=== PATIENT | male | born 1960 | race Caucasian/White ===

== ENCOUNTER 2017-10-12 15:08 | Inpatient (IN) | payer OTHER ==
[~2017-10-12] VITALS: Ht 172.7 cm; Wt 67.6 kg
[~2017-10-12 15:08] MED LIST: DOXY100C2 PO; FLUO10CA48 PO; IBUP-103 PO
[2017-10-12] MEDS ORDERED: LEVAQUIN 750MG / 150ML D5W IV STA (16:05)
[2017-10-12] MEDS ORDERED: METHYLPREDNISOLONE 125 MG VIAL IV STA (16:05)
[2017-10-12] MEDS ORDERED: ACETAMINOPHEN 500 MG TAB PO STA (16:05)
[2017-10-12] MEDS ORDERED: SODIUM CHLORIDE 0.9% 1000ML 1,000 ML IV STA (16:05)
[2017-10-12] MEDS ORDERED: ALBUT/IPRATROP 3MG/0.5MG NEB 3 ML VIAL INH ONE (16:15)
--- NOTE | 2017-10-12 16:32 | DIAGNOSTIC IMAGING REPORT ---
CHEST ONE VIEW PORTABLE HISTORY: 57 years-old Male EVALUATE RESPIRATORY DISTRESS.DYSPNEA acute respiratory distress COMPARISON: None available TECHNIQUE: Portable AP view of the chest FINDINGS: Cardiac silhouette is within normal limits. Mild atherosclerosis of the aorta. No pneumothorax or large pleural effusion. There are patchy ill-defined alveolar opacities of the right midlung and left lung base with subsegmental dense alveolar opacities noted within the right lung base. No overt pulmonary edema. Bones of the chest appear grossly intact. IMPRESSION: Multifocal bilateral patchy alveolar opacities, most pronounced within the right lung base suggest pneumonia in the appropriate clinical setting. Follow-up imaging to document resolution is recommended. The above report was generated using voice recognition software. It may contain grammatical, syntax or spelling errors. Electronically signed by: Farzad Avitia M.D. 10/12/2017 4:30 PM Dictated Date/Time: 10/12/2017 4:28 PM
[2017-10-12 16:35] LABS: BASO % 0.1 %; BASO ABS # 0.01 K/uL (0-0.2); EOS % 0.3 %; EOS ABS # 0.03 K/uL (0-0.5); HEMATOCRIT 39.3 % (42-52); HEMOGLOBIN 13.8 g/dL (14.0-18.0); IG# 0.03 K/uL (0.00-0.02); LYMPH % 8.7 %; LYMPH ABS # 0.97 K/uL (1.2-3.4); MEAN CELL VOLUME 88.1 fL (80-100); MEAN CORPUSCULAR HEMOGLOBIN 30.9 pg (25-34); MEAN CORPUSCULAR HGB CONC 35.1 g/dl (32-36); MEAN PLATELET VOLUME 8.5 fL (7.4-10.4); MONO % 13.2 %; MONO ABS # 1.47 K/uL (0.11-0.59); NEUT % 77.4 %; NEUT ABS # 8.65 K/uL (1.4-6.5); PLATELET COUNT 277 K/uL (130-400); RED CELL DISTRIBUTION WIDTH CV 12.3 % (11.5-14.5); RED CELL DISTRIBUTION WIDTH SD 39.4 fL (36.4-46.3); WHITE BLOOD COUNT 11.16 K/uL (4.8-10.8)
--- NOTE | 2017-10-12 16:38 | EMERGENCY ROOM VISIT NOTE ---
ED Visit Note First contact with patient: 15:39 CHIEF COMPLAINT: Shortness of breath and cough HISTORY OF PRESENTING ILLNESS: This is a 57-year-old male presents to the emergency department with complaint of shortness of breath and cough for the past week. Patient went to see his primary care provider today and was noted to have oxygenation saturation of 81% on room air, he was therefore sent to the emergency department for further evaluation. The patient states he started with flulike symptoms about 1 week ago, including headaches, body aches, fevers and chills. He progressed to a cough and began having shortness of breath, which has been getting progressively worse over the past few days. He is a current everyday heavy smoker. He denies a history of COPD diagnosis, but states that he has "failed breathing tests in the past." He does not use any oxygen at home. He denies any vision changes, neck pain or stiffness, chest pain, dizziness or syncope, abdominal pain, back pain, nausea or vomiting, bloody or black stools, urinary symptoms, or rash. REVIEW OF SYSTEMS: A complete 10 point review of systems was reviewed with the patient with pertinent positives and negatives as per history of present illness. All else were negative. PAST MEDICAL HISTORY: Anxiety, chronic neck pain, Lyme disease. SOCIAL HISTORY: Lives at home with SO. Current everyday heavy smoker. Denies alcohol and illicit drug use. ALLERGIES: Reviewed in chart. PHYSICAL EXAM: CONSTITUTIONAL: Pleasant and cooperative. Moderately dehydrated. Patient appears ill and uncomfortable on exam. HEENT: Normocephalic, atraumatic. Pupils equal, round and reactive to light, EOMI. TMs normal. Pharynx normal. Dry mucous membranes. NECK: Supple, full active range of motion without discomfort. No significant cervical adenopathy. RESPIRATORY: Significantly diminished throughout with expiratory wheezes bilaterally, rhonchi in the right base. Mild accessory muscle use. No crackles or stridor heard. Equal expansion bilaterally. CARDIOVASCULAR: Tachycardic. Regular rhythm with no murmurs, rubs or gallops. Normal peripheral perfusion, +2 distal pulses all 4 extremities. No edema. GASTROINTESTINAL: Soft, nontender, nondistended. No palpable masses or HSM. Bowel sounds present in all quadrants. MUSCULOSKELETAL: Full range of motion of all joints without discomfort. INTEGUMENTARY: No rash or other significant dermatologic conditions noted. NEUROLOGIC: Alert and oriented X 4 with normal affect. Cranial nerves II-XII grossly intact. No focal neurologic deficits noted. Normal strength and sensation in all 4 extremities. Normal speech. ED COURSE AND MEDICAL DECISION MAKING: CC: Patient presenting with complaint of cough and shortness of breath DIFFERENTIAL DIAGNOSIS: Includes, but not limited to viral URI, bronchitis, pneumonia, COPD exacerbation, CHF exacerbation, ACS, influenza, PE, pulmonary edema, pneumothorax, sepsis/bacteremia, among others. INTERPRETATION OF LABS: Leukocytosis with left shift, mild anemia, mild hypokalemia, no other significant electrolyte abnormalities, normal renal function, normal liver enzymes. Negative troponin. Coagulation factors within normal limits. Influenza negative. UA negative. IMAGING: CHEST ONE VIEW PORTABLE HISTORY: 57 years-old Male EVALUATE RESPIRATORY DISTRESS.DYSPNEA acute respiratory distress COMPARISON: None available TECHNIQUE: Portable AP view of the chest FINDINGS: Cardiac silhouette is within normal limits. Mild atherosclerosis of the aorta. No pneumothorax or large pleural effusion. There are patchy ill-defined alveolar opacities of the right midlung and left lung base with subsegmental dense alveolar opacities noted within the right lung base. No overt pulmonary edema. Bones of the chest appear grossly intact. IMPRESSION: Multifocal bilateral patchy alveolar opacities, most pronounced within the right lung base suggest pneumonia in the appropriate clinical setting. Follow-up imaging to document resolution is recommended. EKG: Sinus tachycardia with a rate of 101 bpm no acute ischemic changes and no significant changes from previous EKG by my interpretation. MEDICATION RECONCILIATION: I attest that I have personally reviewed the patient 's current medication list. INITIAL VITAL SIGNS REVIEW: I reviewed the patient's vital signs and interpret them as follows: T: Febrile; BP: Normotensive; HR: Tachycardic; RR: Within normal limits; Pulse Ox: Hypoxic on room air. Blood pressure screening: The patient was found to have normal blood pressure on screening and does not require follow-up for repeat blood pressure check. SUMMARY: Patient was evaluated at bedside, history and physical exam performed. Patient is alert and oriented, noting mild respiratory distress with tachypnea and hypoxia, placed on 3 L nasal cannula. Patient is febrile, tachycardic, hypoxic, and mildly hypertensive on initial examination. Patient also appears to feel unwell. Lungs are significantly diminished with expiratory wheezes on auscultation. EKG reviewed at bedside, no acute ischemic changes. Orders were placed at bedside for labs, UA, blood cultures 2, lactic acid, IV fluids for hydration, hour-long DuoNeb, IV Solu-Medrol, IV Levaquin for suspected pulmonary source of infection, chest x-ray to evaluate for pneumonia. Patient discussed with Dr. Guillen, who agrees with my assessment and plan. Labs and imaging reviewed as above, noting mild leukocytosis with left shift. Influenza screen negative. Chest x-ray consistent with multifocal pneumonia. I spoke with Dr. Aquilino PA-C hospitalist, who agrees to evaluate patient for admission. Patient reassessed multiple times throughout ED stay, he is feeling somewhat better after hour-long neb treatments and being placed on oxygen, but continues to feel short of breath, and becomes hypoxic with removal of oxygen. Patient was updated on all results and plan for admission, patient verbalized understanding and was agreeable to this plan. The patient was stable at time of admission. Problem List Medical Problems: (1) COPD, severe Status: Chronic (2) Depression Status: Chronic Surgical Problems: (1) H/O inguinal hernia repair Status: Chronic (2) History of appendectomy Status: Chronic Current/Historical Medications Scheduled Fluoxetine (Prozac), 10 MG PO DAILY Multivitamin (Multivitamin), 1 TAB PO DAILY Scheduled PRN Lorazepam (Lorazepam), 0.5 MG PO DAILY PRN for Anxiety Meloxicam (Mobic), 15 MG PO DAILY PRN for Pain Allergies Coded Allergies: Sulfa Antibiotics (Verified Allergy, Unknown, RASH, 10/12/17) Vital Signs Date Time Temp Pulse Resp B/P (MAP) Pulse Ox O2 Delivery O2 Flow Rate FiO2 10/12/17 17:22 90 18 94 2.0 10/12/17 17:07 90 20 126/78 97 Nebulizer 10/12/17 16:24 98 10/12/17 16:04 92 Nasal Cannula 3.0 10/12/17 16:04 92 Nasal Cannula 3.0 10/12/17 16:04 38.9 102 20 97/72 90 Nasal Cannula 3.0 10/12/17 15:29 37.5 106 18 110/72 83 Room Air Laboratory Results 10/12/17 16:20 Red Blood Count 4.46, Mean Corpuscular Volume 88.1, Mean Corpuscular Hemoglobin 30.9, Mean Corpuscular Hemoglobin Concent 35.1, Mean Platelet Volume 8.5, Neutrophils (%) (Auto) 77.4, Lymphocytes (%) (Auto) 8.7, Monocytes (%) (Auto) 13.2, Eosinophils (%) (Auto) 0.3, Basophils (%) (Auto) 0.1, Neutrophils # (Auto ) 8.65, Lymphocytes # (Auto) 0.97, Monocytes # (Auto) 1.47, Eosinophils # (Auto ) 0.03, Basophils # (Auto) 0.01 10/12/17 16:20 Test 10/12/17 15:55 10/12/17 16:20 Influenza Type A Antigen Neg for Influ A (NEG) Influenza Type B Antigen Neg for Influ B (NEG) White Blood Count 11.16 K/uL (4.8-10.8) Red Blood Count 4.46 M/uL (4.7-6.1) Hemoglobin 13.8 g/dL (14.0-18.0) Hematocrit 39.3 % (42-52) Mean Corpuscular Volume 88.1 fL (80-100) Mean Corpuscular Hemoglobin 30.9 pg (25-34) Mean Corpuscular Hemoglobin Concent 35.1 g/dl (32-36) Platelet Count 277 K/uL (130-400) Mean Platelet Volume 8.5 fL (7.4-10.4) Neutrophils (%) (Auto) 77.4 % Lymphocytes (%) (Auto) 8.7 % Monocytes (%) (Auto) 13.2 % Eosinophils (%) (Auto) 0.3 % Basophils (%) (Auto) 0.1 % Neutrophils # (Auto) 8.65 K/uL (1.4-6.5) Lymphocytes # (Auto) 0.97 K/uL (1.2-3.4) Monocytes # (Auto) 1.47 K/uL (0.11-0.59) Eosinophils # (Auto) 0.03 K/uL (0-0.5) Basophils # (Auto) 0.01 K/uL (0-0.2) RDW Standard Deviation 39.4 fL (36.4-46.3) RDW Coefficient of Variation 12.3 % (11.5-14.5) Immature Granulocyte % (Auto) 0.3 % Immature Granulocyte # (Auto) 0.03 K/uL (0.00-0.02) Prothrombin Time 11.6 SECONDS (9.0-12.0) Prothromb Time International Ratio 1.1 (0.9-1.1) Activated Partial Thromboplast Time 31.7 SECONDS (21.0-31.0) Partial Thromboplastin Ratio 1.2 Anion Gap 8.0 mmol/L (3-11) Est Creatinine Clear Calc Drug Dose 133.6 ml/min Estimated GFR () 130.3 Estimated GFR (Non- 112.4 BUN/Creatinine Ratio 19.9 (10-20) Lactic Acid Level 0.9 mmol/L (0.4-2.0) Calcium Level 8.9 mg/dl (8.5-10.1) Magnesium Level 2.2 mg/dl (1.8-2.4) Total Bilirubin 0.6 mg/dl (0.2-1) Aspartate Amino Transf (AST/SGOT) 14 U/L (15-37) Alanine Aminotransferase (ALT/SGPT) 29 U/L (12-78) Alkaline Phosphatase 60 U/L (45-117) Troponin I < 0.015 ng/ml (0-0.045) Total Protein 7.5 gm/dl (6.4-8.2) Albumin 3.0 gm/dl (3.4-5.0) Globulin 4.5 gm/dl (2.5-4.0) Albumin/Globulin Ratio 0.7 (0.9-2) Medications Administered Medications (Trade) Dose Ordered Sig/Radha Route Start Time Stop Time Status Last Admin Dose Admin Acetaminophen (Tylenol Tab) 1,000 mg NOW STAT PO 10/12/17 16:05 10/12/17 16:09 DC 10/12/17 16:57 1,000 MG Albuterol/ Ipratropium (Duoneb) 12 ml ONE ONCE INH 10/12/17 16:15 10/12/17 16:16 DC 10/12/17 17:01 12 ML Levofloxacin (Levaquin / D5W) 750 mg NOW STAT IV 10/12/17 16:05 10/12/17 16:09 DC 10/12/17 16:58 750 MG Methylprednisolone Sodium Succinate (Solu-Medrol IV) 125 mg NOW STAT IV 10/12/17 16:05 10/12/17 16:09 DC 10/12/17 16:58 125 MG Sodium Chloride 1,000 ml @ 999 mls/hr Q1H1M STAT IV 10/12/17 16:05 10/12/17 17:05 DC 10/12/17 16:49 999 MLS/HR Departure Information Impression Primary Impression: Pneumonia Additional Impression: Hypoxia Dispostion Admitted as an inpatient Condition FAIR Referrals Princess Odonnell D.O. (PCP) Patient Instructions [facility] Problem Qualifiers Primary Impression: Pneumonia Pneumonia type: due to unspecified organism Laterality: bilateral Lung location: unspecified part of lung Qualified Codes: J18.9 - Pneumonia, unspecified organism
[2017-10-12 16:43] LABS: INR 1.1 (0.9-1.1); PTT PATIENT 31.7 SECONDS (21.0-31.0)
[2017-10-12 16:51] LABS: ALT/SGPT 29 U/L (12-78); AST/SGOT 14 U/L (15-37); BLOOD UREA NITROGEN 12 mg/dl (7-18); CALCIUM 8.9 mg/dl (8.5-10.1); CARBON DIOXIDE 31 mmol/L (21-32); CREATININE 0.59 mg/dl (0.60-1.40); GLUCOSE 116 mg/dl (70-99); POTASSIUM 3.2 mmol/L (3.5-5.1); SODIUM 135 mmol/L (136-145)
[2017-10-12 16:56] LABS: ALKALINE PHOSPHATASE 60 U/L (45-117); TOTAL PROTEIN 7.5 gm/dl (6.4-8.2)
[2017-10-12] MEDS ORDERED: ATV5X PO (17:19)
[2017-10-12] MEDS ORDERED: MULT-506 PO (17:19)
[2017-10-12 17:21] LABS: INFLUENZA B ANTIGEN Neg for Influ B (NEG)
[2017-10-12 17:22] VITALS: PULSE 90; O2SAT 94
[2017-10-12] MEDS ORDERED: ONDANSETRON INJ 2 MG/ML 2 ML VIAL IV PRN (17:45)
[2017-10-12] MEDS ORDERED: ACETAMINOPHEN 325 MG TAB PO PRN (17:45)
[2017-10-12] MEDS ORDERED: POTASSIUM CHLORIDE 10 MEQ TABCR PO STA (17:47)
[2017-10-12] MEDS ORDERED: MELO-84 PO (18:07)
[2017-10-12] MEDS ORDERED: LORAZEPAM 0.5 MG TAB PO PRN (18:15)
--- NOTE | 2017-10-12 19:54 | History and Physical ---
History & Physical Date & Time of Service: Oct 12, 2017 ~ 17:15 Chief Complaint: Shortness of Breath, Cough Referred by PCP Primary Care Physician: Princess Odonnell D.O. History of Present Illness 57 year old male who presents to the ED with shortness of breath and cough. Patient reports he started getting sick about one week ago. He has had worsening shortness of breath at rest as well as with exertion. He has a cough productive for green sputum. He has felt body aches and chills however did not take his temperature at home. He was seen by his PCP today where he was found to have oxygen saturation of 81% on room air. He was referred to the ED for further evaluation. Patient reports he has had a poor appetite but denies abdominal pain, nausea, vomiting, or diarrhea. No chest pain or palpitations. He denies lightheadedness, dizziness, diaphoresis, and syncopal events. No urinary symptoms. In the ED, patient was saturating 83% on room air which improved with oxygen 3L via NC. He was also febrile and tachycardic. BP is stable. Lactic acid is WNL. CXR shows multifocal pneumonia. He was given IVF, Tylenol, IV Levaquin, and IV solumedrol. Past Medical/Surgical History Medical Problems: (1) COPD, severe Status: Chronic (2) Depression Status: Chronic Surgical Problems: (1) H/O inguinal hernia repair Status: Chronic (2) History of appendectomy Status: Chronic Family History FH: CAD (coronary artery disease) FATHER (fatal AR at age 71) Social History Smoking Status: Current Every Day Smoker Alcohol Use: none Immunizations History of Tetanus Vaccine?: Yes Tetanus Immunization Date: May 09, 2009 History of Pneumococcal: Yes Pneumococcal Date: Feb 11, 2017 Multi-Drug Resistant Organisms History of MDRO: No Allergies Coded Allergies: Sulfa Antibiotics (Verified Allergy, Unknown, RASH, 10/12/17) Home Medications Scheduled Fluoxetine (Prozac), 10 MG PO DAILY Multivitamin (Multivitamin), 1 TAB PO DAILY Scheduled PRN Lorazepam (Lorazepam), 0.5 MG PO DAILY PRN for Anxiety Meloxicam (Mobic), 15 MG PO DAILY PRN for Pain Review of Systems ROS per HPI, all other systems reviewed and negative Physical Exam Vital Signs Date Time Temp Pulse Resp B/P (MAP) Pulse Ox O2 Delivery O2 Flow Rate FiO2 2/12/18 18:16 36.9 99 18 105/67 94 Nasal Cannula 3.0 10/12/17 17:22 90 18 94 2.0 10/12/17 17:07 90 20 126/78 97 Nebulizer 10/12/17 16:24 98 10/12/17 16:04 92 Nasal Cannula 3.0 10/12/17 16:04 92 Nasal Cannula 3.0 10/12/17 16:04 38.9 102 20 97/72 90 Nasal Cannula 3.0 10/12/17 15:29 37.5 106 18 110/72 83 Room Air General Appearance: WD/WN, no apparent distress (ill appearing) Head: normocephalic, atraumatic Eyes: normal inspection, EOMI, sclerae normal ENT: hearing grossly normal, + pertinent finding (mucous membranes moist) Neck: supple, no JVD, trachea midline Respiratory/Chest: no respiratory distress, + rhonchi (scattered throughout all lung chamberlain), + wheezing (expiratory) Cardiovascular: regular rate, rhythm, no edema, normal peripheral pulses Abdomen/GI: normal bowel sounds, non tender, soft, no organomegaly Extremities/Musculoskelatal: normal inspection, no calf tenderness, normal capillary refill Neurologic/Psych: no motor/sensory deficits, alert, normal mood/affect, oriented x 3 Skin: normal color, warm/dry Diagnostics Laboratory Results Results Past 24 Hours Test 10/12/17 15:55 10/12/17 16:20 Range/Units Influenza Type A Antigen Neg for Influ A NEG Influenza Type B Antigen Neg for Influ B NEG White Blood Count 11.16 4.8-10.8 K/uL Red Blood Count 4.46 4.7-6.1 M/uL Hemoglobin 13.8 14.0-18.0 g/dL Hematocrit 39.3 42-52 % Mean Corpuscular Volume 88.1 80-100 fL Mean Corpuscular Hemoglobin 30.9 25-34 pg Mean Corpuscular Hemoglobin Concent 35.1 32-36 g/dl Platelet Count 277 130-400 K/uL Mean Platelet Volume 8.5 7.4-10.4 fL Neutrophils (%) (Auto) 77.4 % Lymphocytes (%) (Auto) 8.7 % Monocytes (%) (Auto) 13.2 % Eosinophils (%) (Auto) 0.3 % Basophils (%) (Auto) 0.1 % Neutrophils # (Auto) 8.65 1.4-6.5 K/uL Lymphocytes # (Auto) 0.97 1.2-3.4 K/uL Monocytes # (Auto) 1.47 0.11-0.59 K/uL Eosinophils # (Auto) 0.03 0-0.5 K/uL Basophils # (Auto) 0.01 0-0.2 K/uL RDW Standard Deviation 39.4 36.4-46.3 fL RDW Coefficient of Variation 12.3 11.5-14.5 % Immature Granulocyte % (Auto) 0.3 % Immature Granulocyte # (Auto) 0.03 0.00-0.02 K/uL Prothrombin Time 11.6 9.0-12.0 SECONDS Prothromb Time International Ratio 1.1 0.9-1.1 Activated Partial Thromboplast Time 31.7 21.0-31.0 SECONDS Partial Thromboplastin Ratio 1.2 Sodium Level 135 136-145 mmol/L Potassium Level 3.2 3.5-5.1 mmol/L Chloride Level 96 98-107 mmol/L Carbon Dioxide Level 31 21-32 mmol/L Anion Gap 8.0 3-11 mmol/L Blood Urea Nitrogen 12 7-18 mg/dl Creatinine 0.59 0.60-1.40 mg/dl Est Creatinine Clear Calc Drug Dose 133.6 ml/min Estimated GFR () 130.3 Estimated GFR (Non- 112.4 BUN/Creatinine Ratio 19.9 10-20 Random Glucose 116 70-99 mg/dl Lactic Acid Level 0.9 0.4-2.0 mmol/L Calcium Level 8.9 8.5-10.1 mg/dl Magnesium Level 2.2 1.8-2.4 mg/dl Total Bilirubin 0.6 0.2-1 mg/dl Aspartate Amino Transf (AST/SGOT) 14 15-37 U/L Alanine Aminotransferase (ALT/SGPT) 29 12-78 U/L Alkaline Phosphatase 60 45-117 U/L Troponin I < 0.015 0-0.045 ng/ml Total Protein 7.5 6.4-8.2 gm/dl Albumin 3.0 3.4-5.0 gm/dl Globulin 4.5 2.5-4.0 gm/dl Albumin/Globulin Ratio 0.7 0.9-2 Microbiology Results 10/12/17 Blood Culture, Received Pending 10/12/17 Blood Culture, Received Pending Diagnostic Radiology CXR IMPRESSION: Multifocal bilateral patchy alveolar opacities, most pronounced within the right lung base suggest pneumonia in the appropriate clinical setting. Follow-up imaging to document resolution is recommended. Impression Assessment and Plan ACUTE HYPOXIC RESPIRATORY FAILURE COMMUNITY ACQUIRED PNEUMONIA COPD EXACERBATION POSSIBLE EARLY SEPSIS - admit to tele - patient presenting from PCPs office for evaluation of cough, shortness of breath, and hypoxia; in the ED, patient found to be 83% on room air which improved with oxygen 3L via NC and CXR shows multifocal pneumonia - on presentation: febrile, mild tachycardia; WBC 11K, lactic acid WNL, BP stable - rapid flu negative; will not check PCR given duration of patient's symptoms - s/p Levaquin in the ED, will continue with - s/p solumedrol 125mg IV in the ED, will continue with Prednisone 40mg PO x 5 days - blood and sputum cultures - IVF - flutter valve and nebs to help mobilize secretions - PFTs 02/2017 - severe COPD; patient continues to smoke DEPRESSION - continue fluoxetine TOBACCO ABUSE - patient counseled regarding smoking cessation - nicotine patch - consider outpatient screening CT DVT PROPHYLAXIS - SQ Lovenox DISPO - In my clinical judgment this beneficiary meets acute admission criteria, established by [facility], that includes being hospitalized through two midnights. ADDENDUM: This is a 57 year old male with a PMH of tobacco use disorder, smokes 2PPD. Presents with fevers/chills/weakness/cough for the past week. Thought it was the flu, but symptoms persisted. Presented to the ER and found to have multifocal pneumonia. He is comfortable currently; after receiving a breathing treatment. Plan: continue Levaquin for pneumonia add prednisone 40mg x5 days for an acute COPD exacerbation will need maintenance inhaler for COPD as outpatient (Advair, Dulera, Spiriva) should have low dose CT as outpatient to r/o malignancy VTE Prophylaxis VTE Risk Assessment Done? Y/N: Yes Risk Level: Moderate
[2017-10-12] MEDS: SODIUM CHLORIDE 0.9% 1000ML 1,000 ML IV SCH (19:55)
[2017-10-12] MEDS: LEVOFLOXACIN / D5W 750 MG in PREMIXED IN D5W 150 ML IV SCH (20:13)
[2017-10-12] MEDS: ENOXAPARIN 40 MG/0.4 ML SYR SC SCH (20:13)
[2017-10-12 20:24] VITALS: PULSE 71; O2SAT 92
[2017-10-12] MEDS: ALBUT/IPRATROP 3MG/0.5MG NEB 3 ML VIAL INH SCH (20:24)
[2017-10-12 20:39] VITALS: BP 100/64; PULSE 97; TEMP 37; Ht 172.7 cm; Wt 67.6 kg
[2017-10-12 23:44] VITALS: BP 98/65; PULSE 86; TEMP 36.7; O2SAT 92
[2017-10-13] VITALS (12 sets, daily range): BP systolic 109–138; BP diastolic 71–91; PULSE 79–101; TEMP 36.6–36.7; O2SAT 90–96
[2017-10-13] MEDS: ALBUT/IPRATROP 3MG/0.5MG NEB 3 ML VIAL INH SCH ×4 (01:46→19:12)
[2017-10-13] MEDS: SODIUM CHLORIDE 0.9% 1000ML 1,000 ML IV SCH (05:53)
[2017-10-13 07:47] LABS: HEMATOCRIT 34.1 % (42-52); HEMOGLOBIN 11.6 g/dL (14.0-18.0); MEAN CELL VOLUME 89.5 fL (80-100); MEAN CORPUSCULAR HEMOGLOBIN 30.4 pg (25-34); MEAN PLATELET VOLUME 8.5 fL (7.4-10.4); PLATELET COUNT 245 K/uL (130-400); RED CELL DISTRIBUTION WIDTH CV 12.4 % (11.5-14.5); RED CELL DISTRIBUTION WIDTH SD 39.8 fL (36.4-46.3)
[2017-10-13 08:13] LABS: CALCIUM 8.6 mg/dl (8.5-10.1); CREATININE 0.48 mg/dl (0.60-1.40); POTASSIUM 3.5 mmol/L (3.5-5.1)
[2017-10-13] MEDS: FLUOXETINE HCL 10 MG CAP PO SCH (10:37)
[2017-10-13] MEDS: MULTIVITAMIN TAB PO SCH (10:38)
[2017-10-13] MEDS: NICOTINE 21 MG/24 HR TDSY TD SCH (10:39)
[2017-10-13] MEDS ORDERED: NURSING VERBAL MED ORDER ONE (16:15)
--- NOTE | 2017-10-13 16:15 | Progress Note ---
Internal Med Progress Note Date of Service: Oct 13, 2017. Provider Documentation: SUBJECTIVE: The patient was seen and examined Admitted with Pneumonia and exacerbation of COPD Feels a lot better Continues to smoke OBJECTIVE: Vital Signs-as noted below Exam: General-Minimal distress at rst Eyes-Normal ENT-normal Neck-supple Lungs-Decreased breath sound bilaterally Bibasilar crackles Heart-Regular Abdomen-Benign Extremities-No edema Neuro-AAOx3 Lab data as noted below. ASSESSMENT & PLAN: ACUTE HYPOXIC RESPIRATORY FAILURE COMMUNITY ACQUIRED PNEUMONIA COPD EXACERBATION Possible Early Sepsis - patient presenting from PCPs office for evaluation of cough, shortness of breath, and hypoxia; in the ED, patient found to be 83% on room air which improved with oxygen 3L via NC and CXR shows multifocal pneumonia - rapid flu negative; - s/p Levaquin in the ED, will continue with - s/p solumedrol 125mg IV in the ED, will continue with Prednisone 40mg PO x 5 days - blood and sputum cultures-pending - IVF - flutter valve and nebs to help mobilize secretions - PFTs 02/2017 - severe COPD; patient continues to smoke -Clinically better -advised to quit smoking,patient agreeable DEPRESSION - continue fluoxetine TOBACCO ABUSE - patient counseled regarding smoking cessation - nicotine patch DVT PROPHYLAXIS - SQ Lovenox DISPO Discharge in a day or two Vital Signs: Date Time Temp Pulse Resp B/P (MAP) Pulse Ox O2 Delivery O2 Flow Rate FiO2 10/13/17 15:13 36.6 84 20 116/78 (91) 94 Nasal Cannula 1.0 10/13/17 12:00 93 Nasal Cannula 2.0 10/13/17 11:45 92 Nasal Cannula 2.0 10/13/17 11:31 36.6 79 16 112/74 (87) 92 Nasal Cannula 2.0 10/13/17 09:14 90 Nasal Cannula 2.0 10/13/17 08:00 90 Nasal Cannula 2.0 10/13/17 07:41 36.7 82 16 110/72 (85) 90 Room Air 2.0 10/13/17 07:33 81 18 94 Nasal Cannula 1.0 10/13/17 04:00 Nasal Cannula 4.0 10/13/17 03:59 36.7 83 18 109/71 (84) 96 Nasal Cannula 4.0 10/13/17 00:00 Nasal Cannula 4.0 10/12/17 23:44 36.7 86 20 98/65 (76) 92 3.0 10/12/17 20:39 37.0 97 18 100/64 Nasal Cannula 4.0 10/12/17 20:24 71 18 92 Nasal Cannula 4.0 10/12/17 18:16 36.9 99 18 105/67 94 Nasal Cannula 3.0 10/12/17 17:22 90 18 94 2.0 10/12/17 17:07 90 20 126/78 97 Nebulizer 10/12/17 16:24 98 Lab Results: Results Past 24 Hours Test 10/12/17 16:20 10/12/17 22:25 10/13/17 07:26 Range/Units White Blood Count 11.16 7.90 4.8-10.8 K/uL Red Blood Count 4.46 3.81 4.7-6.1 M/uL Hemoglobin 13.8 11.6 14.0-18.0 g/dL Hematocrit 39.3 34.1 42-52 % Mean Corpuscular Volume 88.1 89.5 80-100 fL Mean Corpuscular Hemoglobin 30.9 30.4 25-34 pg Mean Corpuscular Hemoglobin Concent 35.1 34.0 32-36 g/dl Platelet Count 277 245 130-400 K/uL Mean Platelet Volume 8.5 8.5 7.4-10.4 fL Neutrophils (%) (Auto) 77.4 % Lymphocytes (%) (Auto) 8.7 % Monocytes (%) (Auto) 13.2 % Eosinophils (%) (Auto) 0.3 % Basophils (%) (Auto) 0.1 % Neutrophils # (Auto) 8.65 1.4-6.5 K/uL Lymphocytes # (Auto) 0.97 1.2-3.4 K/uL Monocytes # (Auto) 1.47 0.11-0.59 K/uL Eosinophils # (Auto) 0.03 0-0.5 K/uL Basophils # (Auto) 0.01 0-0.2 K/uL RDW Standard Deviation 39.4 39.8 36.4-46.3 fL RDW Coefficient of Variation 12.3 12.4 11.5-14.5 % Immature Granulocyte % (Auto) 0.3 % Immature Granulocyte # (Auto) 0.03 0.00-0.02 K/uL Prothrombin Time 11.6 9.0-12.0 SECONDS Prothromb Time International Ratio 1.1 0.9-1.1 Activated Partial Thromboplast Time 31.7 21.0-31.0 SECONDS Partial Thromboplastin Ratio 1.2 Sodium Level 135 138 136-145 mmol/L Potassium Level 3.2 3.5 3.5-5.1 mmol/L Chloride Level 96 100 98-107 mmol/L Carbon Dioxide Level 31 31 21-32 mmol/L Anion Gap 8.0 7.0 3-11 mmol/L Blood Urea Nitrogen 12 8 7-18 mg/dl Creatinine 0.59 0.48 0.60-1.40 mg/dl Est Creatinine Clear Calc Drug Dose 133.6 164.2 ml/min Estimated GFR () 130.3 141.8 Estimated GFR (Non- 112.4 122.3 BUN/Creatinine Ratio 19.9 16.8 10-20 Random Glucose 116 102 70-99 mg/dl Lactic Acid Level 0.9 0.4-2.0 mmol/L Calcium Level 8.9 8.6 8.5-10.1 mg/dl Magnesium Level 2.2 1.8-2.4 mg/dl Total Bilirubin 0.6 0.2-1 mg/dl Aspartate Amino Transf (AST/SGOT) 14 15-37 U/L Alanine Aminotransferase (ALT/SGPT) 29 12-78 U/L Alkaline Phosphatase 60 45-117 U/L Troponin I < 0.015 0-0.045 ng/ml Total Protein 7.5 6.4-8.2 gm/dl Albumin 3.0 3.4-5.0 gm/dl Globulin 4.5 2.5-4.0 gm/dl Albumin/Globulin Ratio 0.7 0.9-2 Urine Color YELLOW Urine Appearance CLEAR CLEAR Urine pH 6.5 4.5-7.5 Urine Specific [place] 1.008 1.000-1.030 Urine Protein NEG NEG Urine Glucose (UA) NEG NEG Urine Ketones NEG NEG Urine Occult Blood NEG NEG Urine Nitrite NEG NEG Urine Bilirubin NEG NEG Urine Urobilinogen NEG NEG Urine Leukocyte Esterase NEG NEG Hepatitis C Antibody Screen NEG NEG Microbiology Results 10/12/17 Blood Culture, Received Pending 10/12/17 Blood Culture, Received Pending 10/12/17 Gram Stain - Final, Resulted 10/12/17 Sputum Culture - Preliminary, Resulted HEAVY NORMAL PUMA Present, Final Rep...
[2017-10-13] MEDS: LEVOFLOXACIN / D5W 750 MG in PREMIXED IN D5W 150 ML IV SCH (20:21)
[2017-10-13] MEDS: ENOXAPARIN 40 MG/0.4 ML SYR SC SCH (20:42)
[2017-10-14] VITALS (10 sets, daily range): BP systolic 104–133; BP diastolic 71–87; PULSE 75–86; TEMP 36.4–36.9; O2SAT 90–95
[2017-10-14] MEDS: ALBUT/IPRATROP 3MG/0.5MG NEB 3 ML VIAL INH SCH ×3 (01:50→15:00)
[2017-10-14] MEDS: FLUOXETINE HCL 10 MG CAP PO SCH (08:33)
[2017-10-14] MEDS: NICOTINE 21 MG/24 HR TDSY TD SCH (08:33)
[2017-10-14] MEDS: MULTIVITAMIN TAB PO SCH (08:33)
--- NOTE | 2017-10-14 15:56 | Progress Note ---
Internal Med Progress Note Date of Service: Oct 14, 2017. Provider Documentation: SUBJECTIVE: The patient was seen and examined Admitted with Pneumonia and exacerbation of COPD Continues to smoke Much better today Advised ambulation OBJECTIVE: Vital Signs-as noted below Exam: General-Minimal distress at rest Eyes-Normal ENT-normal Neck-supple Lungs-Decreased breath sound bilaterally Bibasilar crackles Heart-Regular Abdomen-Benign Extremities-No edema Neuro-AAOx3 Lab data as noted below. ASSESSMENT & PLAN: ACUTE HYPOXIC RESPIRATORY FAILURE COMMUNITY ACQUIRED PNEUMONIA COPD EXACERBATION Possible Early Sepsis - patient presenting from PCPs office for evaluation of cough, shortness of breath, and hypoxia; in the ED, patient found to be 83% on room air which improved with oxygen 3L via NC and CXR shows multifocal pneumonia - rapid flu negative; - s/p Levaquin in the ED, will continue with - s/p solumedrol 125mg IV in the ED, will continue with Prednisone 40mg with tapered dose - blood and sputum cultures-pending - IVF-will discontinue IVF - flutter valve and nebs to help mobilize secretions - PFTs 02/2017 - severe COPD; patient continues to smoke -Clinically much better -advised to quit smoking,patient agreeable -Increase ambulation DEPRESSION - continue fluoxetine TOBACCO ABUSE - patient counseled regarding smoking cessation - nicotine patch for now DVT PROPHYLAXIS - SQ Lovenox DISPO Discharge in a day or two Vital Signs: Date Time Temp Pulse Resp B/P (MAP) Pulse Ox O2 Delivery O2 Flow Rate FiO2 10/15/17 08:00 Room Air 10/15/17 07:23 36.8 65 18 119/79 (92) 90 Nasal Cannula 2.0 10/15/17 04:00 Nasal Cannula 2.0 10/15/17 03:41 36.5 73 18 121/79 (93) 90 Nasal Cannula 2.0 10/15/17 00:14 36.6 79 18 117/72 (87) 93 Nasal Cannula 2.0 10/15/17 00:00 Nasal Cannula 2.0 10/14/17 20:00 Room Air 10/14/17 19:26 36.4 86 18 104/72 (83) 92 Nasal Cannula 2.0 10/14/17 16:00 Room Air 10/14/17 15:08 86 18 95 Room Air 10/14/17 12:00 91 Room Air 10/14/17 10:57 36.5 77 18 123/76 (92) 90 Room Air Lab Results: Results Past 24 Hours Test 10/15/17 05:30 Range/Units White Blood Count 8.81 4.8-10.8 K/uL Red Blood Count 4.15 4.7-6.1 M/uL Hemoglobin 12.7 14.0-18.0 g/dL Hematocrit 36.3 42-52 % Mean Corpuscular Volume 87.5 80-100 fL Mean Corpuscular Hemoglobin 30.6 25-34 pg Mean Corpuscular Hemoglobin Concent 35.0 32-36 g/dl RDW Standard Deviation 39.9 36.4-46.3 fL RDW Coefficient of Variation 12.5 11.5-14.5 % Platelet Count 335 130-400 K/uL Mean Platelet Volume 8.3 7.4-10.4 fL Sodium Level 140 136-145 mmol/L Potassium Level 3.1 3.5-5.1 mmol/L Chloride Level 103 98-107 mmol/L Carbon Dioxide Level 30 21-32 mmol/L Anion Gap 7.0 3-11 mmol/L Blood Urea Nitrogen 11 7-18 mg/dl Creatinine 0.60 0.60-1.40 mg/dl Est Creatinine Clear Calc Drug Dose 131.4 ml/min Estimated GFR () 129.4 Estimated GFR (Non- 111.6 BUN/Creatinine Ratio 18.8 10-20 Random Glucose 98 70-99 mg/dl Calcium Level 8.8 8.5-10.1 mg/dl Phosphorus Level 4.3 2.5-4.9 mg/dl Magnesium Level 2.2 1.8-2.4 mg/dl
[2017-10-14] MEDS ORDERED: LEVOFLOXACIN 750 MG TAB PO SCH (18:00)
[2017-10-14] MEDS: ENOXAPARIN 40 MG/0.4 ML SYR SC SCH (21:51)
[2017-10-14] MEDS: IPRATROPIUM BROMIDE/ALBUTEROL respimat INH INH SCH (21:53)
[2017-10-15 00:14] VITALS: BP 117/72; PULSE 79; TEMP 36.6; O2SAT 93
[2017-10-15] MEDS: IPRATROPIUM BROMIDE/ALBUTEROL respimat INH INH SCH ×3 (02:38→11:36)
[2017-10-15 03:41] VITALS: BP 121/79; PULSE 73; TEMP 36.5; O2SAT 90
[2017-10-15 05:53] LABS: HEMATOCRIT 36.3 % (42-52); HEMOGLOBIN 12.7 g/dL (14.0-18.0); MEAN CELL VOLUME 87.5 fL (80-100); MEAN CORPUSCULAR HEMOGLOBIN 30.6 pg (25-34); MEAN PLATELET VOLUME 8.3 fL (7.4-10.4); PLATELET COUNT 335 K/uL (130-400); RED CELL DISTRIBUTION WIDTH CV 12.5 % (11.5-14.5); RED CELL DISTRIBUTION WIDTH SD 39.9 fL (36.4-46.3); WHITE BLOOD COUNT 8.81 K/uL (4.8-10.8)
[2017-10-15 06:21] LABS: CALCIUM 8.8 mg/dl (8.5-10.1); CREATININE 0.6 mg/dl (0.60-1.40); POTASSIUM 3.1 mmol/L (3.5-5.1)
[2017-10-15 06:22] LABS: PHOSPHORUS 4.3 mg/dl (2.5-4.9)
[2017-10-15 07:23] VITALS: BP 119/79; PULSE 65; TEMP 36.8; O2SAT 90
[2017-10-15] MEDS: FLUOXETINE HCL 10 MG CAP PO SCH (07:26)
[2017-10-15] MEDS: MULTIVITAMIN TAB PO SCH (07:26)
[2017-10-15] MEDS: NICOTINE 21 MG/24 HR TDSY TD SCH (07:27)
[2017-10-15] MEDS ORDERED: POTASSIUM CHLORIDE 20 MEQ TABCR PO ONE (07:45)
--- NOTE | 2017-10-15 08:25 | DIAGNOSTIC IMAGING REPORT ---
CHEST 2 VIEWS ROUTINE CLINICAL HISTORY: 57 years-old Male presenting with pneumonia. TECHNIQUE: PA and lateral views of the chest were obtained. COMPARISON: 10/12/2017. FINDINGS: Atherosclerosis of the aortic arch. Cardiac silhouette normal in size. Interval decrease in patchy hazy opacities at the right lung base. Minimal patchy opacities in the right midlung. Lungs mildly hyperinflated. Trace bilateral pleural effusions suspected. Degenerative changes of the thoracic spine. Numerous overlying external leads degrade evaluation of the upper abdomen. IMPRESSION: 1. Slight interval decrease in right basilar consolidation consistent with evolving pneumonia. 2. Hyperinflation could suggest underlying emphysema. 3. Trace bilateral pleural effusions. Electronically signed by: Gurinder Reyes M.D. 10/15/2017 8:24 AM Dictated Date/Time: 10/15/2017 8:22 AM
[2017-10-15 09:49] VITALS: O2SAT 88
[2017-10-15] MEDS ORDERED: POTASSIUM CHLORIDE 10 MEQ TABCR PO ONE (10:00)
--- NOTE | 2017-10-15 10:13 | Progress Note ---
Internal Med Progress Note Date of Service: Oct 15, 2017. Provider Documentation: SUBJECTIVE: The patient was seen and examined Admitted with Pneumonia and exacerbation of COPD Continues to smoke Much better today Ambulating well -ready to be discharged today OBJECTIVE: Vital Signs-as noted below Exam: General-Minimal distress at rest Eyes-Normal ENT-normal Neck-supple Lungs-Decreased breath sound bilaterally Bibasilar crackles with minimal wheezing bilaterally Heart-Regular Abdomen-Benign Extremities-No edema Neuro-AAOx3 Lab data as noted below. ASSESSMENT & PLAN: ACUTE HYPOXIC RESPIRATORY FAILURE COMMUNITY ACQUIRED PNEUMONIA COPD EXACERBATION Possible Early Sepsis - patient presenting from PCPs office for evaluation of cough, shortness of breath, and hypoxia; in the ED, patient found to be 83% on room air which improved with oxygen 3L via NC and CXR shows multifocal pneumonia - rapid flu negative; - s/p Levaquin in the ED, will continue with - s/p solumedrol 125mg IV in the ED, will continue with Prednisone 40mg with tapered dose - blood and sputum cultures-pending - IVF-will discontinue IVF - flutter valve and nebs to help mobilize secretions - PFTs 02/2017 - severe COPD; patient continues to smoke -advised to quit smoking,patient agreeable -CXR-no significant increase in Pneumonia,minimal bilateral effusion -Clinically a lot better today -Ambulating well -ready to be discharged today -2 steps before discharge DEPRESSION - continue fluoxetine TOBACCO ABUSE - patient counseled regarding smoking cessation - nicotine patch for now DVT PROPHYLAXIS - SQ Lovenox DISPO Discharge today Vital Signs: Date Time Temp Pulse Resp B/P (MAP) Pulse Ox O2 Delivery O2 Flow Rate FiO2 10/15/17 09:07 Nasal Cannula 2.0 10/15/17 08:00 Room Air 10/15/17 07:23 36.8 65 18 119/79 (92) 90 Nasal Cannula 2.0 10/15/17 04:00 Nasal Cannula 2.0 10/15/17 03:41 36.5 73 18 121/79 (93) 90 Nasal Cannula 2.0 10/15/17 00:14 36.6 79 18 117/72 (87) 93 Nasal Cannula 2.0 10/15/17 00:00 Nasal Cannula 2.0 10/14/17 20:00 Room Air 10/14/17 19:26 36.4 86 18 104/72 (83) 92 Nasal Cannula 2.0 10/14/17 16:00 Room Air 10/14/17 15:08 86 18 95 Room Air 10/14/17 12:00 91 Room Air 10/14/17 10:57 36.5 77 18 123/76 (92) 90 Room Air Lab Results: Results Past 24 Hours Test 10/15/17 05:30 Range/Units White Blood Count 8.81 4.8-10.8 K/uL Red Blood Count 4.15 4.7-6.1 M/uL Hemoglobin 12.7 14.0-18.0 g/dL Hematocrit 36.3 42-52 % Mean Corpuscular Volume 87.5 80-100 fL Mean Corpuscular Hemoglobin 30.6 25-34 pg Mean Corpuscular Hemoglobin Concent 35.0 32-36 g/dl RDW Standard Deviation 39.9 36.4-46.3 fL RDW Coefficient of Variation 12.5 11.5-14.5 % Platelet Count 335 130-400 K/uL Mean Platelet Volume 8.3 7.4-10.4 fL Sodium Level 140 136-145 mmol/L Potassium Level 3.1 3.5-5.1 mmol/L Chloride Level 103 98-107 mmol/L Carbon Dioxide Level 30 21-32 mmol/L Anion Gap 7.0 3-11 mmol/L Blood Urea Nitrogen 11 7-18 mg/dl Creatinine 0.60 0.60-1.40 mg/dl Est Creatinine Clear Calc Drug Dose 131.4 ml/min Estimated GFR () 129.4 Estimated GFR (Non- 111.6 BUN/Creatinine Ratio 18.8 10-20 Random Glucose 98 70-99 mg/dl Calcium Level 8.8 8.5-10.1 mg/dl Phosphorus Level 4.3 2.5-4.9 mg/dl Magnesium Level 2.2 1.8-2.4 mg/dl
[2017-10-15] MEDS ORDERED: NURSING VERBAL MED ORDER ONE (10:15)
[2017-10-15] MEDS ORDERED: LVQ750 PO (11:14)
[2017-10-15] MEDS ORDERED: ALBU1.257 NEB (11:14)
[2017-10-15] MEDS ORDERED: LCTX PO (11:14)
[2017-10-15] MEDS ORDERED: NICO21DI4 TD (11:14)
[2017-10-15] MEDS ORDERED: PRED10TA PO (11:14)
[2017-10-15] MEDS ORDERED: IPRA1AER2 INH (11:14)
--- NOTE | 2017-10-15 11:19 | Discharge Instructions ---
Discharge Instructions Date of Service Oct 15, 2017. Admission Reason for Admission: Pneumonia Discharge Discharge Diagnosis / Problem: COPD exacerbation,Pneumonia Discharge Goals Goal(s): Prevent Disease Progression Activity Recommendations Activity Limitations: resume your previous activity . Instructions / Follow-Up Instructions / Follow-Up DR Odonnell on 10/19/17 at 10:45 AM.Pulmonary will call with appointment-will need Pulmonary Rehab Current Hospital Diet Patient's current hospital diet: Regular Diet, Low Fiber Diet Discharge Diet Recommended Diet: Regular Diet Pending Studies Studies pending at discharge: no Medical Emergencies . Who to Call and When: Medical Emergencies: If at any time you feel your situation is an emergency, please call 911 immediately. . Non-Emergent Contact Non-Emergency issues call your: Primary Care Provider . Past History Medical & Surgical History: (1) Hypoxia (2) Pneumonia (3) Depression (4) COPD, severe (5) History of appendectomy (6) H/O inguinal hernia repair . "Provider Documentation" section prepared by Helen Marroquin. . VTE Core Measure Inpt VTE Proph given/why not?: Enoxaparin (Lovenox)SQ
[2017-10-15 11:30] VITALS: BP 136/78; PULSE 67; TEMP 36.7; O2SAT 90
[2017-10-15 13:41] VITALS: BP 136/78; PULSE 67; TEMP 36.7; O2SAT 90
[2017-10-15] MEDS ORDERED: SODIUM CHLORIDE 0.65% NA SOLN 45 ML (OCEAN) ONE (13:57)
--- NOTE | 2017-10-16 12:43 | Discharge Summary ---
Discharge Summary Date of Service Oct 16, 2017. Discharge Summary Admission Date: Oct 12, 2017 at 17:36 Discharge Date: Oct 15, 2017 Discharge Disposition: Home Principal Diagnosis: COPD exacerbation,Pneumonia Secondary Diagnoses/Problems: Please see H&P and Hospital Progress note Medication Reconciliation New Medications: Albuterol Sulfate (Albuterol Sulfate) 1.25 Mg/3 Ml Neb 1 VIAL NEB Q6 PRN for Wheezing for 15 Days, #150 ML Lactobacillus Acidophilus (Lactinex) Tab 2 TAB PO BID, #30 TAB Prednisone Tab (Prednisone) 10 Mg Tab 10 MG PO UD for 20 Days, #50 TAB 4 PO daily for 5days,3 podaily for 5 days,2 podaily for 5 days and then 1 podaily for 5 days Ipratropium-Albuterol (Combivent Respimat) 1 Aer Aer 1 PUFFS INH Q6 PRN for Wheezing for 30 Days, #1 INHALER Levofloxacin (Levofloxacin) 750 Mg Tab 750 MG PO DAILY@1800 for 4 Days, #4 TAB Nicotine (Nicoderm Cq) 21 Mg/24 Hr Dis 1 PATCH TD QAM for 30 Days, #30 Continued Medications: Fluoxetine (Prozac) 10 Mg Cap 10 MG PO DAILY, CAP Lorazepam (Lorazepam) 0.5 Mg Tab 0.5 MG PO DAILY PRN for Anxiety Multivitamin (Multivitamin) Tab 1 TAB PO DAILY, TAB Discontinued Medications: Meloxicam (Mobic) 15 Mg Tab 15 MG PO DAILY PRN for Pain for 30 Days, #30 TAB 2 Refills Admission Information HPI (per Admitting provider): 57 year old male who presents to the ED with shortness of breath and cough. Patient reports he started getting sick about one week ago. He has had worsening shortness of breath at rest as well as with exertion. He has a cough productive for green sputum. He has felt body aches and chills however did not take his temperature at home. He was seen by his PCP today where he was found to have oxygen saturation of 81% on room air. He was referred to the ED for further evaluation. Patient reports he has had a poor appetite but denies abdominal pain, nausea, vomiting, or diarrhea. No chest pain or palpitations. He denies lightheadedness, dizziness, diaphoresis, and syncopal events. No urinary symptoms. In the ED, patient was saturating 83% on room air which improved with oxygen 3L via NC. He was also febrile and tachycardic. BP is stable. Lactic acid is WNL. CXR shows multifocal pneumonia. He was given IVF, Tylenol, IV Levaquin, and IV solumedrol. Past Medical/Surgical History Medical Problems: (1) COPD, severe Status: Chronic (2) Depression Status: Chronic Surgical Problems: (1) H/O inguinal hernia repair Status: Chronic (2) History of appendectomy Status: Chronic Family History FH: CAD (coronary artery disease) FATHER (fatal [place] at age 71) Social History Smoking Status: Current Every Day Smoker Alcohol Use: none Immunizations History of Tetanus Vaccine?: Yes Tetanus Immunization Date: May 09, 2009 History of Pneumococcal: Yes Pneumococcal Date: Feb 11, 2017 Multi-Drug Resistant Organisms History of MDRO: No Allergies Coded Allergies: Sulfa Antibiotics (Verified Allergy, Unknown, RASH, 10/12/17) Home Medications Scheduled Fluoxetine (Prozac), 10 MG PO DAILY Multivitamin (Multivitamin), 1 TAB PO DAILY Scheduled PRN Lorazepam (Lorazepam), 0.5 MG PO DAILY PRN for Anxiety Meloxicam (Mobic), 15 MG PO DAILY PRN for Pain Review of Systems ROS per HPI, all other systems reviewed and negative Physical Ex - H&P Physical Exam Vital Signs Date Time Temp Pulse Resp B/P (MAP) Pulse Ox O2 Delivery O2 Flow Rate FiO2 10/12/17 18:16 36.9 99 18 105/67 94 Nasal Cannula 3.0 10/12/17 17:22 90 18 94 2.0 10/12/17 17:07 90 20 126/78 97 Nebulizer 10/12/17 16:24 98 10/12/17 16:04 92 Nasal Cannula 3.0 10/12/17 16:04 92 Nasal Cannula 3.0 10/12/17 16:04 38.9 102 20 97/72 90 Nasal Cannula 3.0 10/12/17 15:29 37.5 106 18 110/72 83 Room Air General Appearance: WD/WN, no apparent distress (ill appearing) Head: normocephalic, atraumatic Eyes: normal inspection, EOMI, sclerae normal ENT: hearing grossly normal, + pertinent finding (mucous membranes moist) Neck: supple, no JVD, trachea midline Respiratory/Chest: no respiratory distress, + rhonchi (scattered throughout all lung chamberlain), + wheezing (expiratory) Cardiovascular: regular rate, rhythm, no edema, normal peripheral pulses Abdomen/GI: normal bowel sounds, non tender, soft, no organomegaly Extremities/Musculoskelatal: normal inspection, no calf tenderness, normal capillary refill Neurologic/Psych: no motor/sensory deficits, alert, normal mood/affect, oriented x 3 Skin: normal color, warm/dry Diagnostics - H&P Diagnostics Laboratory Results Results Past 24 Hours Test 10/12/17 15:55 10/12/17 16:20 Range/Units Influenza Type A Antigen Neg for Influ A NEG Influenza Type B Antigen Neg for Influ B NEG White Blood Count 11.16 4.8-10.8 K/uL Red Blood Count 4.46 4.7-6.1 M/uL Hemoglobin 13.8 14.0-18.0 g/dL Hematocrit 39.3 42-52 % Mean Corpuscular Volume 88.1 80-100 fL Mean Corpuscular Hemoglobin 30.9 25-34 pg Mean Corpuscular Hemoglobin Concent 35.1 32-36 g/dl Platelet Count 277 130-400 K/uL Mean Platelet Volume 8.5 7.4-10.4 fL Neutrophils (%) (Auto) 77.4 % Lymphocytes (%) (Auto) 8.7 % Monocytes (%) (Auto) 13.2 % Eosinophils (%) (Auto) 0.3 % Basophils (%) (Auto) 0.1 % Neutrophils # (Auto) 8.65 1.4-6.5 K/uL Lymphocytes # (Auto) 0.97 1.2-3.4 K/uL Monocytes # (Auto) 1.47 0.11-0.59 K/uL Eosinophils # (Auto) 0.03 0-0.5 K/uL Basophils # (Auto) 0.01 0-0.2 K/uL RDW Standard Deviation 39.4 36.4-46.3 fL RDW Coefficient of Variation 12.3 11.5-14.5 % Immature Granulocyte % (Auto) 0.3 % Immature Granulocyte # (Auto) 0.03 0.00-0.02 K/uL Prothrombin Time 11.6 9.0-12.0 SECONDS Prothromb Time International Ratio 1.1 0.9-1.1 Activated Partial Thromboplast Time 31.7 21.0-31.0 SECONDS Partial Thromboplastin Ratio 1.2 Sodium Level 135 136-145 mmol/L Potassium Level 3.2 3.5-5.1 mmol/L Chloride Level 96 98-107 mmol/L Carbon Dioxide Level 31 21-32 mmol/L Anion Gap 8.0 3-11 mmol/L Blood Urea Nitrogen 12 7-18 mg/dl Creatinine 0.59 0.60-1.40 mg/dl Est Creatinine Clear Calc Drug Dose 133.6 ml/min Estimated GFR () 130.3 Estimated GFR (Non- 112.4 BUN/Creatinine Ratio 19.9 10-20 Random Glucose 116 70-99 mg/dl Lactic Acid Level 0.9 0.4-2.0 mmol/L Calcium Level 8.9 8.5-10.1 mg/dl Magnesium Level 2.2 1.8-2.4 mg/dl Total Bilirubin 0.6 0.2-1 mg/dl Aspartate Amino Transf (AST/SGOT) 14 15-37 U/L Alanine Aminotransferase (ALT/SGPT) 29 12-78 U/L Alkaline Phosphatase 60 45-117 U/L Troponin I < 0.015 0-0.045 ng/ml Total Protein 7.5 6.4-8.2 gm/dl Albumin 3.0 3.4-5.0 gm/dl Globulin 4.5 2.5-4.0 gm/dl Albumin/Globulin Ratio 0.7 0.9-2 Microbiology Results 10/12/17 Blood Culture, Received Pending 10/12/17 Blood Culture, Received Pending Diagnostic Radiology CXR IMPRESSION: Multifocal bilateral patchy alveolar opacities, most pronounced within the right lung base suggest pneumonia in the appropriate clinical setting. Follow-up imaging to document resolution is recommended. Impression - H&P Impression Assessment and Plan ACUTE HYPOXIC RESPIRATORY FAILURE COMMUNITY ACQUIRED PNEUMONIA COPD EXACERBATION POSSIBLE EARLY SEPSIS - admit to tele - patient presenting from PCPs office for evaluation of cough, shortness of breath, and hypoxia; in the ED, patient found to be 83% on room air which improved with oxygen 3L via NC and CXR shows multifocal pneumonia - on presentation: febrile, mild tachycardia; WBC 11K, lactic acid WNL, BP stable - rapid flu negative; will not check PCR given duration of patient's symptoms - s/p Levaquin in the ED, will continue with - s/p solumedrol 125mg IV in the ED, will continue with Prednisone 40mg PO x 5 days - blood and sputum cultures - IVF - flutter valve and nebs to help mobilize secretions - PFTs 02/2017 - severe COPD; patient continues to smoke DEPRESSION - continue fluoxetine TOBACCO ABUSE - patient counseled regarding smoking cessation - nicotine patch - consider outpatient screening CT DVT PROPHYLAXIS - SQ Lovenox DISPO - In my clinical judgment this beneficiary meets acute admission criteria, established by [facility], that includes being hospitalized through two midnights. ADDENDUM: This is a 57 year old male with a PMH of tobacco use disorder, smokes 2PPD. Presents with fevers/chills/weakness/cough for the past week. Thought it was the flu, but symptoms persisted. Presented to the ER and found to have multifocal pneumonia. He is comfortable currently; after receiving a breathing treatment. Plan: continue Levaquin for pneumonia add prednisone 40mg x5 days for an acute COPD exacerbation will need maintenance inhaler for COPD as outpatient (Advair, Dulera, Spiriva) should have low dose CT as outpatient to r/o malignancy VTE Prophylaxis VTE Risk Assessment Done? Y/N: Yes Risk Level: Moderate Physical Exam (per Admitting): General Appearance: WD/WN, no apparent distress (ill appearing) Head: normocephalic, atraumatic Eyes: normal inspection, EOMI, sclerae normal ENT: hearing grossly normal, + pertinent finding (mucous membranes moist) Neck: supple, no JVD, trachea midline Respiratory/Chest: no respiratory distress, + rhonchi (scattered throughout all lung chamberlain), + wheezing (expiratory) Cardiovascular: regular rate, rhythm, no edema, normal peripheral pulses Abdomen/GI: normal bowel sounds, non tender, soft, no organomegaly Extremities/Musculoskelatal: normal inspection, no calf tenderness, normal capillary refill Neurologic/Psych: no motor/sensory deficits, alert, normal mood/affect, oriented x 3 Skin: normal color, warm/dry Hospital Course ACUTE HYPOXIC RESPIRATORY FAILURE COMMUNITY ACQUIRED PNEUMONIA COPD EXACERBATION Possible Early Sepsis - patient presenting from PCPs office for evaluation of cough, shortness of breath, and hypoxia; in the ED, patient found to be 83% on room air which improved with oxygen 3L via NC and CXR shows multifocal pneumonia - rapid flu negative; - s/p Levaquin in the ED, will continue with - s/p solumedrol 125mg IV in the ED, will continue with Prednisone 40mg with tapered dose - blood and sputum cultures-pending - IVF-will discontinue IVF - flutter valve and nebs to help mobilize secretions - PFTs 02/2017 - severe COPD; patient continues to smoke -advised to quit smoking,patient agreeable -CXR-no significant increase in Pneumonia,minimal bilateral effusion -Clinically a lot better today -Ambulating well -ready to be discharged today -2 steps before discharge DEPRESSION - continue fluoxetine TOBACCO ABUSE - patient counseled regarding smoking cessation - nicotine patch for now DVT PROPHYLAXIS - SQ Lovenox DISPO Discharge today Total time spent on discharge = 35 minutes This includes examination of the patient, discharge planning, medication reconciliation, and communication with other providers. Discharge Instructions Date of Service Oct 15, 2017. Admission Reason for Admission: Pneumonia Discharge Discharge Diagnosis / Problem: COPD exacerbation,Pneumonia Discharge Goals Goal(s): Prevent Disease Progression Activity Recommendations Activity Limitations: resume your previous activity . Instructions / Follow-Up Instructions / Follow-Up DR Odonnell on 10/19/17 at 10:45 AM.Pulmonary will call with appointment-will need Pulmonary Rehab Current Hospital Diet Patient's current hospital diet: Regular Diet, Low Fiber Diet Discharge Diet Recommended Diet: Regular Diet Pending Studies Studies pending at discharge: no Medical Emergencies . Who to Call and When: Medical Emergencies: If at any time you feel your situation is an emergency, please call 911 immediately. . Non-Emergent Contact Non-Emergency issues call your: Primary Care Provider . Past History Medical & Surgical History: (1) Hypoxia (2) Pneumonia (3) Depression (4) COPD, severe (5) History of appendectomy (6) H/O inguinal hernia repair . "Provider Documentation" section prepared by Helen Marroquin. . VTE Core Measure Inpt VTE Proph given/why not?: Enoxaparin (Lovenox)SQ <Electronically signed by Helen Marroquin M.D.> Signed: 10/15/17 1119 Signed: The status of this report is Signed * If report status is Draft, the document has not been finalized by the responsible provider. Additional Copies To Princess Odonnell D.O.
== END 2017-10-15 15:53 | disposition home health service (06) | DRG 871 ==
LOC: C.EDB 15:09 → C.MED 17:36 → ENRESERV 18:04
PROVIDERS: ADMIT Family Medicine; ATTEND Internal Medicine
DX: A41.9 Sepsis, unspecified organism (principal); J18.9 Pneumonia, unspecified organism; R65.20 Severe sepsis without septic shock; J96.01 Acute respiratory failure with hypoxia; J44.1 Chronic obstructive pulmonary disease with (acute) exacerbation; Z88.2 Allergy status to sulfonamides; F32.9 Major depressive disorder, single episode, unspecified; Z82.49 Family history of ischemic heart disease and other diseases of the circulatory system

== ENCOUNTER → 2017-11-20 | Outpatient (CLI) | payer OTHER ==
[~2017-11-20] MED LIST changes: +ATV5X PO; -DOXY100C2 PO; -IBUP-103 PO; +IPRA1AER2 INH; +LCTX PO; +LVQ750 PO; +MULT-506 PO; +NICO21DI4 TD
--- NOTE | 2017-11-20 11:01 | DIAGNOSTIC IMAGING REPORT ---
CHEST 2 VIEWS ROUTINE HISTORY: 57 years-old Male J44.9 COPD with hypoxia acute hypoxia with COPD COMPARISON: Chest radiographs 10/15/2017, 10/12/2017 TECHNIQUE: PA and lateral views of the chest FINDINGS: Cardiac silhouette is within normal limits in size. Atherosclerosis of the aorta. No pneumothorax or large pleural effusion. The lungs are hyperinflated with unchanged blunting of the posterior costophrenic angles. Slightly decreased persistent opacities of the right lung base, seen best on the PA view. Minimal linear subsegmental opacities of the inferior segment lingula suggest atelectasis. The lateral view is limited secondary to positioning of the patient's arms. Degenerative changes seen within the shoulders and spine. IMPRESSION: 1. Slightly decreased yet persistent opacities of the right lung base suggest resolving infectious or inflammatory pneumonitis. 2. Mild hyperinflation with unchanged blunting of the posterior costophrenic angles suggesting scarring or trace effusions. 3. Lingular opacities favor atelectasis. The above report was generated using voice recognition software. It may contain grammatical, syntax or spelling errors. Electronically signed by: Farzad Avitia M.D. 11/20/2017 11:00 AM Dictated Date/Time: 11/20/2017 10:57 AM
== END | disposition home or self-care (01) ==
LOC: C.RAD1850 10:41
PROVIDERS: ATTEND Physician Assistant
DX: J44.9 Chronic obstructive pulmonary disease, unspecified (principal); R09.02 Hypoxemia

== ENCOUNTER → 2017-12-25 | Outpatient (CLI) | payer OTHER ==
--- NOTE | 2017-12-25 08:52 | DIAGNOSTIC IMAGING REPORT ---
CHEST 2 VIEWS ROUTINE HISTORY: PNEUMONIA J18.9 COMPARISON: Chest 11/20/2017. FINDINGS: Interval improvement in the right base airspace opacities. These symptoms completely resolved in the interval. There are few linear densities remaining within the right lateral lung base suggestive of scarring or atelectasis. Bilateral nipple shadows are noted. The left lung is clear. The heart is normal in size. No pleural effusions. No pneumothorax. Questionable 12 mm nodular density inferior to the right nipple shadow. IMPRESSION: 1. Near complete resolution of right basilar airspace opacity. This is consistent with a resolving pneumonia. 2. Questionable 12 mm nodule within the right lower lobe inferior 3. These findings were called/faxed to the referring physician's office. To the right nipple shadow. Recommend follow-up shallow oblique views of the chest for further evaluation. Electronically signed by: Stan Norman M.D. 12/25/2017 8:50 AM Dictated Date/Time: 12/25/2017 8:46 AM
--- NOTE | 2017-12-25 09:54 | DIAGNOSTIC IMAGING REPORT ---
ADDENDUM # 2 IMPRESSION should read: Near complete resolution of the right lung base airspace opacities. Electronically signed by: Farzad Avitia M.D. 12/28/2017 9:09 AM Dictated Date/Time: 12/28/2017 9:08 AM ORIGINAL REPORT CHEST OBLIQUES ONLY HISTORY: 57 years-old Male RIGHT OBL REQUESTED follow-up study to assess possible pulmonary nodule or nipple shadow of the right lung base COMPARISON: Chest radiograph 12/25/2017 and 11/20/2017 TECHNIQUE: Right and left shallow oblique images of the chest were obtained FINDINGS: Cardiac silhouette is within normal limits. Near-complete resolution of the right basilar airspace opacities. Left lung is clear. No pneumothorax or pleural effusion. No overt pulmonary edema. The previously questioned 12 mm nodular opacity of the right lower lobe is not definitively seen. Degenerative changes are noted with the shoulders and spine. IMPRESSION: 1. The previously questioned 12 mm nodular opacity is not definitively seen on these oblique images. 2. Near complete opacification of the right lung base airspace opacities. The above report was generated using voice recognition software. It may contain grammatical, syntax or spelling errors. Electronically signed by: Farzad Avitia M.D. 12/25/2017 9:53 AM Dictated Date/Time: 12/25/2017 9:49 AM
== END | disposition home or self-care (01) ==
LOC: C.RAD1850 08:33
PROVIDERS: ATTEND Physician Assistant
DX: R93.8 Abnormal findings on diagnostic imaging of other specified body structures (principal); J18.9 Pneumonia, unspecified organism

== ENCOUNTER 2021-04-16 14:49 | Inpatient (IN) ==
[2021-04-16 15:37] LABS: Basophils # (auto) 0.01 K/uL (0-0.2); Basophils % (auto) 0.1 %; Hematocrit (blood only) 41.4 % (42-52); Hemoglobin 14.3 g/dL (14.0-18.0); Immature Granulocytes # (auto) 0.01 K/uL (0.00-0.02); Immature Granulocytes % (auto) 0.1 %; Lymphocytes # (auto) 0.77 K/uL (1.2-3.4); Mean Corpuscular Hemoglobin 31.2 pg (25-34); Mean Corpuscular Hgb Conc 34.5 g/dL (32-36); Mean Corpuscular Volume 90.4 fL (80-100); Monocytes # (auto) 1.39 K/uL (0.11-0.59); Monocytes % (auto) 18.1 %; Neutrophils # (auto) 5.49 K/uL (1.4-6.5); Neutrophils % (auto) 71.7 %; Platelet Count 224 K/uL (130-400); RDW Coefficient of Variation 12.5 % (11.5-14.5); RDW Standard Deviation 41.9 fL (36.4-46.3); Red Blood Count 4.58 M/uL (4.7-6.1); White Blood Count 7.67 K/uL (4.8-10.8)
--- NOTE | 2021-04-16 15:39 | Emergency Department Note ---
Impression & Plan Hypoxia, COPD, severe ED Provider Note INFORMANT: Patient ED PROVIDER(S): Miki Rivera MD CHIEF COMPLAINT: Shortness of breath PLAN: Disposition: Admitted Condition: Good Outpatient prescription management: none Referral: None MEDICAL DECISION MAKING: Patient presented because of shortness of breath. He was hypoxic. He is a heavy smoker. Chest x-ray was concerning for multifocal pneumonia. Covid testing was negative. The patient responded well to nasal cannula supplemental oxygen. He was given a DuoNeb, Solu-Medrol, and IV Zithromax. He did have blood cultures performed for the antibiotics. Because of the chest x-ray results IV Rocephin was also added. The patient had unremarkable CBC and chemistry panel. Troponin negative. ECG did not reveal any acute findings. Consultation was made with the [facility] and the patient was admitted for further management. The patient was seen and examined with Dr. Estrada, resident physician. We discussed the case and treatments ordered, reviewed the results, and determine the disposition. I have been directly involved with the management and disposition as well as independently evaluated the patient as documented in this note. Triage Nursing notes reviewed and agree them. Vital Signs: reviewed and remarkable for hypoxia. Differential diagnosis: Reactive airway disease, pneumonia, pneumothorax, COPD, CHF, infections, cardiac ischemia, pulmonary embolism, musculoskeletal, gastrointestinal, as well as other pathologies. Diagnostics interpreted by me: ECG:Rate: 92 Rhythm:Normal sinus Ina:Normal QRS:Normal ST segements:No elevation or depression Other:No PACs or PVCs Cardiac Monitoring:Cardiac monitoring ordered by me: The patient was placed on continuous cardiac monitoring and observed. It revealed a normal sinus rhythm at 81 beats per minute without ectopy or evidence of dysrhythmia. Imaging studies: Chest x-ray concerning for multifocal pneumonia. HPI: The patient is a 61 year old male who presents to the Emergency Room with complaints of SOB. This started a week ago and is worsening. The patient also notes the following associated symptoms, MARRERO, nausea, temp of 101, decreased a ppetite. Covid immunized. The patient has tried excedrin for relieving factors. Current pain is rated as 7/10. Pt denies LOC, chills, diaphoresis, visual changes, neck pain, chest pain, vomiting, abdominal pain, back pain, melena, hematochezia, urinary symptoms, numbness, weakness, lymphadenopathy, rash, or other complaints. ROS: See above HPI for pertinent positives & negatives. A total of 10 systems reviewed and were otherwise negative. PAST MEDICAL HISTORY:See Below , COPD PAST SURGICAL HISTORY:See Below, FAMILY HISTORY:See Below SOCIAL HISTORY:See Below, 50 pack year hx of tobacco HOME MEDICATIONS:See Below ALLERGIES:See Below VITALS:See Below PHYSICAL EXAMINATION: GENERAL: Awake, alert, dyspneic-appearing, in no distress HENT: Normocephalic, atraumatic. Oropharynx unremarkable. EYES: Normal conjunctiva. Sclera non-icteric. NECK: Inspection normal. Non-tender. Supple. No nuchal rigidity. FROM. No masses. RESPIRATORY:Scattered wheezes. No rales. Increased respiratory effort. CARDIAC: Normal rate. Normal rhythm. No murmurs. No rubs. Extremities warm and well perfused. Pulses equal. No JVD. GI: Soft, non-distended. No tenderness to palpation. No rebound or guarding. No masses. RECTAL: Deferred. MUSCULOSKELETAL: Atraumatic. Chest examination reveals no tenderness. The back is symmetrical on inspection without obvious abnormality. There is no CVA tenderness to palpation. No joint edema. LOWER EXTREMITIES: Calves are equal size bilaterally and non-tender. No edema. No discoloration. NEURO: Normal sensorium. No sensory or motor deficits noted. SKIN: No rash or jaundice noted. Miki Rivera MD Past Med/Surg History Medical History (Updated 04/16/21 @ 18:13 by Lexi Rolle PA-C) COPD, severe Tobacco use disorder Surgical History H/O inguinal hernia repair History of appendectomy Family History (Updated 04/16/21 @ 18:12 by Lexi Rolle PA-C) Father Myocardial infarction Other Diabetes Social History (Updated 04/16/21 @ 19:06 by Lexi Rolle PA-C) Smoking Status: Current every day smoker Tobacco Type: Cigarettes packs per day: 1; Cigarettes Per Day: 20-40; Hx Alcohol Use: No Hx Substance Use: No Feels Safe at Home: Yes Allergies Allergies Allergy/AdvReac Type Severity Reaction Status Date / Time Sulfa (Sulfonamide Allergy Unknown RASH Verified 04/16/21 16:03 Antibiotics) Home Meds Home Medications Medication Instructions Recorded Confirmed albuterol sulfate 90 mcg/actuation 2 puff INHALATION Q4 PRN 04/16/21 04/16/21 aerosol inhaler atorvastatin 20 mg tablet 20 mg PO DAILY 04/16/21 04/16/21 fluticasone 250 mcg-salmeterol 50 1 inh INHALATION BID 04/16/21 04/16/21 mcg/dose blistr powdr for inhalation (Advair Diskus) multivitamin 1 tab PO DAILY 04/16/21 04/16/21 Results & Data (ED) Vital Signs Vital Signs - 24 hr 04/16/21 14:52 04/16/21 15:08 04/16/21 15:09 Temperature 37 C Temperature Source Temporal Artery Scan Pulse Rate 100 H 91 H Pulse Rate [Apical] 97 H Pulse Rate [Finger] Pulse Rate from SpO2 Sensor 93 H Pulse Rhythm [Apical] Regular Respiratory Rate 24 16 20 Respiratory Effort / Characteristics Non-Labored Spontaneous Non-Labored Respiratory Depth Shallow Normal Respiratory Pattern Regular Blood Pressure 104/68 107/69 Blood Pressure [Right Arm] 107/69 Blood Pressure Mean 80 81 Blood Pressure Mean [Right Arm] 81 Blood Pressure Position Sitting Pulse Oximetry 86 L 91 92 Oxygen Delivery Method Room Air Nasal Cannula Oxygen Flow Rate 2 Sepsis Recent Fever Within 48 Hours No Sepsis New/Unexplained Change in Mental Status N/A Sepsis Action Taken by Nursing No Action Required Oxygen Flow Rate - Titration 3 Pulse Oximetry Post Tiitration 92 04/16/21 15:30 04/16/21 16:00 04/16/21 16:23 Temperature Temperature Source Pulse Rate 92 H 85 Pulse Rate [Apical] Pulse Rate [Finger] 83 Pulse Rate from SpO2 Sensor 92 H 86 Pulse Rhythm [Apical] Respiratory Rate 23 22 19 Respiratory Effort / Characteristics Non-Labored Spontaneous Respiratory Depth Respiratory Pattern Blood Pressure 101/76 105/69 Blood Pressure [Right Arm] Blood Pressure Mean 84 81 Blood Pressure Mean [Right Arm] Blood Pressure Position Pulse Oximetry 93 91 91 Oxygen Delivery Method Nasal Cannula Oxygen Flow Rate 3 Sepsis Recent Fever Within 48 Hours Sepsis New/Unexplained Change in Mental Status Sepsis Action Taken by Nursing Oxygen Flow Rate - Titration Pulse Oximetry Post Tiitration 04/16/21 16:30 04/16/21 17:00 04/16/21 17:30 Temperature Temperature Source Pulse Rate 88 86 85 Pulse Rate [Apical] Pulse Rate [Finger] Pulse Rate from SpO2 Sensor 87 Pulse Rhythm [Apical] Respiratory Rate 16 18 Respiratory Effort / Characteristics Respiratory Depth Respiratory Pattern Blood Pressure 111/73 97/62 L 103/74 Blood Pressure [Right Arm] Blood Pressure Mean 85 73 83 Blood Pressure Mean [Right Arm] Blood Pressure Position Pulse Oximetry 93 93 92 Oxygen Delivery Method Nasal Cannula Oxygen Flow Rate 3 3 Sepsis Recent Fever Within 48 Hours Sepsis New/Unexplained Change in Mental Status Sepsis Action Taken by Nursing Oxygen Flow Rate - Titration Pulse Oximetry Post Tiitration Laboratory Data Result diagrams: 04/16/21 15:30 04/16/21 15:30 Lab Results 04/16/21 04/16/21 04/16/21 Range/Units 15:25 15:25 15:30 WBC 7.67 (4.8-10.8) K/uL RBC 4.58 L (4.7-6.1) M/uL Hgb 14.3 (14.0-18.0) g/dL Hct 41.4 L (42-52) % MCV 90.4 (80-100) fL MCH 31.2 (25-34) pg MCHC 34.5 (32-36) g/dL RDW Std Deviation 41.9 (36.4-46.3) fL RDW Coeff of Jeff 12.5 (11.5-14.5) % Plt Count 224 (130-400) K/uL MPV 9.0 (7.4-10.4) fL Immature Gran % (Auto) 0.1 % Neut % (Auto) 71.7 % Lymph % (Auto) 10.0 % Bath % (Auto) 18.1 % Eos % (Auto) 0.0 % Baso % (Auto) 0.1 % Neut # (Auto) 5.49 (1.4-6.5) K/uL Lymph # (Auto) 0.77 L (1.2-3.4) K/uL Bath # (Auto) 1.39 H (0.11-0.59) K/uL Eos # (Auto) 0.00 (0-0.5) K/uL Baso # (Auto) 0.01 (0-0.2) K/uL Immature Gran # (Auto) 0.01 (0.00-0.02) K/uL Sodium (136-145) mmol/L Potassium (3.5-5.1) mmol/L Chloride (98-107) mmol/L Carbon Dioxide (21-32) mmol/L Anion Gap (3-11) BUN (7-18) mg/dl Creatinine (0.6-1.4) mg/dl Est Cr Clr Drug Dosing ml/min Est GFR ( Amer) ml/min Est GFR (Non-Af Amer) ml/min BUN/Creatinine Ratio (10-20) Glucose (70-99) mg/dl Calcium (8.5-10.1) mg/dl Total Bilirubin (0.2-1) mg/dl AST (15-37) U/L ALT (12-78) U/L Alkaline Phosphatase (45-117) U/L Troponin I (0-0.045) ng/ml NT-Pro-B Natriuret Pep (0-900) pg/ml Total Protein (6.4-8.2) gm/dl Albumin (3.4-5.0) gm/dl Globulin (2.5-4.0) gm/dl Albumin/Globulin Ratio (0.9-2) Procalcitonin (0-0.5) ng/ml COVID-19 Eval Order Covid19 at [facility] SARS-CoV-2 (PCR) NEGATIVE (Negative) 04/16/21 04/16/21 Range/Units 15:30 15:30 WBC (4.8-10.8) K/uL RBC (4.7-6.1) M/uL Hgb (14.0-18.0) g/dL Hct (42-52) % MCV (80-100) fL MCH (25-34) pg MCHC (32-36) g/dL RDW Std Deviation (36.4-46.3) fL RDW Coeff of Jeff (11.5-14.5) % Plt Count (130-400) K/uL MPV (7.4-10.4) fL Immature Gran % (Auto) % Neut % (Auto) % Lymph % (Auto) % Bath % (Auto) % Eos % (Auto) % Baso % (Auto) % Neut # (Auto) (1.4-6.5) K/uL Lymph # (Auto) (1.2-3.4) K/uL Bath # (Auto) (0.11-0.59) K/uL Eos # (Auto) (0-0.5) K/uL Baso # (Auto) (0-0.2) K/uL Immature Gran # (Auto) (0.00-0.02) K/uL Sodium 133 L (136-145) mmol/L Potassium 3.5 (3.5-5.1) mmol/L Chloride 101 (98-107) mmol/L Carbon Dioxide 26 (21-32) mmol/L Anion Gap 6.0 (3-11) BUN 14 (7-18) mg/dl Creatinine 0.75 (0.6-1.4) mg/dl Est Cr Clr Drug Dosing 106.8 ml/min Est GFR ( Amer) 114.8 ml/min Est GFR (Non-Af Amer) 99.0 ml/min BUN/Creatinine Ratio 19.1 (10-20) Glucose 113 H (70-99) mg/dl Calcium 9.1 (8.5-10.1) mg/dl Total Bilirubin 1.0 (0.2-1) mg/dl AST 8 L (15-37) U/L ALT 18 (12-78) U/L Alkaline Phosphatase 43 L (45-117) U/L Troponin I < 0.015 (0-0.045) ng/ml NT-Pro-B Natriuret Pep 125 (0-900) pg/ml Total Protein 7.3 (6.4-8.2) gm/dl Albumin 3.0 L (3.4-5.0) gm/dl Globulin 4.3 H (2.5-4.0) gm/dl Albumin/Globulin Ratio 0.7 L (0.9-2) Procalcitonin 0.28 (0-0.5) ng/ml COVID-19 Eval Order SARS-CoV-2 (PCR) (Negative) Administered Medications Discontinued Medications Acetaminophen (Acetaminophen 500 Mg Tab) 1,000 mg PO NOW STA Stop: 04/16/21 15:54 Last Admin: 04/16/21 16:09 Dose: 1,000 mg Documented by: [id number] Albuterol (Albut/Ipratrop 3mg/0.5mg Neb 3 Ml Vial) 3 ml NEB NOW STA Stop: 04/16/21 15:41 Last Admin: 04/16/21 16:22 Dose: 3 ml Documented by: [id number] Azithromycin 500 mg/ Dextrose 255 mls @ 125 mls/hr IV ONE ONE Stop: 04/16/21 18:12 Last Infusion: 04/16/21 19:02 Dose: 0 mls/hr Documented by: [id number] Admin: 04/16/21 16:44 Dose: 125 mls/hr Documented by: [id number] Ceftriaxone Sodium (Rocephin) 2,000 mg in 70 mls @ 140 mls/hr IV NOW STA Stop: 04/16/21 17:40 Last Admin: 04/16/21 19:06 Dose: 140 mls/hr Documented by: [id number] Lorazepam (Lorazepam 0.5 Mg Tab) 0.5 mg PO NOW STA Stop: 04/16/21 17:50 Last Admin: 04/16/21 17:52 Dose: 0.5 mg Documented by: [id number] Methylprednisolone (Methylprednisolone 125 Mg/2 Ml Vial) 125 mg IV NOW STA Stop: 04/16/21 15:41 Last Admin: 04/16/21 15:58 Dose: 125 mg Documented by: [id number] Imaging Data Radiologist's Impression: Chest X-Ray 04/16/21 14:59 XR chest 1V portable CLINICAL HISTORY: Dyspnea COMPARISON STUDY: December 25, 2017 FINDINGS: No pneumothorax. No pleural effusion. Interval worsening of diffuse reticular opacities since prior study which might represent chronic fibrotic changes or/and pulmonary edema. Interval development of patchy airspace component mostly within bilateral lower lobes. Few nodular opacities within right and left bases are new since prior study and might represent inflammatory changes/pneumonia. Cardiomediastinal silhouette is within normal limits in size. Minimal pulmonary vascular congestion.. Aorta is calcified. Osseous structures: Mild degenerative changes of the spine. IMPRESSION: 1. Airspace opacities at bilateral lower lungs likely represent multifocal pneumonia. Follow-up evaluation with PA and lateral chest radiograph in 4-6 weeks is recommended to document resolution. 2. Possible pulmonary edema. Pulmonary vascular congestion. 3. The rest of findings as above. ACT 112: Negative or not required by law. The above report was generated using voice recognition software. It may contain grammatical, syntax or spelling errors. Electronically signed by: Shona Broderick DO 04/16/2021 4:41 PM Discharge Plan Visit Data Chief Complaint: Shortness of Breath/Dyspnea Stated Complaint: SOB,COUGH,COPD ED Provider: Miki Rivera ED Midlevel Provider: Saurav Estrada Discharge Problem: Hypoxia, COPD, severe Patient Disposition: Admitted As Inpatient Discharge Instructions Interventions: ED Discharge Assessment Last Done: 04/16/21 19:17
[2021-04-16] MEDS ORDERED: ALBUT/IPRATROP 3MG/0.5MG NEB 3 ML VIAL NEB STA (15:40)
[2021-04-16] MEDS ORDERED: methylPREDNISolone 125 MG/2 ML VIAL IV STA (15:40)
[2021-04-16 15:50] LABS: Alanine Aminotransferase 18 U/L (12-78); BUN Creatinine Ratio 19.1 (10-20); Blood Urea Nitrogen 14 mg/dl (7-18); Calcium 9.1 mg/dl (8.5-10.1); Carbon Dioxide 26 mmol/L (21-32); Chloride 101 mmol/L (98-107); Creatinine Clr Calc Pharmacy 106.8 ml/min; Est GFR (African American) 114.8 ml/min; Glucose 113 mg/dl (70-99); Potassium 3.5 mmol/L (3.5-5.1); Sodium 133 mmol/L (136-145)
[2021-04-16] MEDS ORDERED: ACETAMINOPHEN 500 MG TAB PO STA (15:53)
[2021-04-16 15:55] LABS: Albumin Globulin Ratio 0.7 (0.9-2); Alkaline Phosphatase 43 U/L (45-117); Aspartate Aminotransferase 8 U/L (15-37); Globulin 4.3 gm/dl (2.5-4.0); NT Pro B Type Natriuretic Pept 125 pg/ml (0-900); Total Protein 7.3 gm/dl (6.4-8.2); Troponin I < 0.015 ng/ml (0-0.045)
--- NOTE | 2021-04-16 16:09 | Emergency Department Note ---
ED Visit Note Patient was seen with Dr. Rivera, see his note for details. .
[2021-04-16] MEDS ORDERED: AZITHROMYCIN 500 MG in DEXTROSE 5% 250 ML IV ONE (16:10)
--- NOTE | 2021-04-16 16:42 | XRay Report ---
XR chest 1V portable CLINICAL HISTORY: Dyspnea COMPARISON STUDY: December 25, 2017 FINDINGS: No pneumothorax. No pleural effusion. Interval worsening of diffuse reticular opacities since prior study which might represent chronic fib rotic changes or/and pulmonary edema. Interval development of patchy airspace component mostly within bilateral lower lobes. Few nodular opacities within right and left bases are new since prior study a nd might represent inflammatory changes/pneumonia. Cardiomediastinal silhouette is within normal limits in size. Minimal pulmonary vascular congestion.. Aorta is calcified. Osseous structures: Mild degenerative changes of the spine. IMPRESSION: 1. Airspace opacities at bilateral lower lungs likely represent multifocal pneumonia. Follow-up eval uation with PA and lateral chest radiograph in 4-6 weeks is recommended to document resolution. 2. Possible pulmonary edema. Pulmonary vascular congestion. 3. The rest of findings as above. ACT 112: Negative or not required by law. The above report was generated using voice recognition software. It may contain grammatical, syntax o r spelling errors. Electronically signed by: Shona Broderick DO 04/16/2021 4:41 PM
[2021-04-16] MEDS ORDERED: cefTRIAXone SODIUM 2,000 MG/70 ML BAG IV STA (17:11)
[2021-04-16] MEDS ORDERED: LORazepam 0.5 MG TAB PO STA (17:49)
--- NOTE | 2021-04-16 18:04 | History & Physical Report ---
Date of Service April 16, 2021 Assessment & Plan (1) Acute respiratory failure with hypoxia: Plan: This is a 61yo M with a PMH of COPD, ongoing tobacco use and dyslipidemia who presents with worsening shortness of breath over the past week. Hypoxic at 88% on room air, 92% on 3L NC Not on supplemental O2 at baseline - continue (2) COPD exacerbation: Plan: Significant smoking history Given 125mg IV solumedrol, albuterol neb in ER Continue IV steroids, duonebs, antibiotics (3) Multifocal pneumonia: Plan: CXR with airspace opacities at bilateral lower lungs likely represent multifocal pneumonia Afebrile, no leukocytosis, procal wnl Continue azithromycin and Rocephin for CAP Follow-up evaluation with PA and lateral chest radiograph in 4-6 weeks is recommended to document resolution (4) Tobacco use disorder: Plan: Discussed importance of smoking cessation - education ordered DVT Ppx: SQ lovenox Code status: FULL PCP: Blas Dispo: Admitted to PCU Patient seen in collaboration with Dr. Sorenson. Please see addendum. History of Present Illness Chief Complaint: SOB Primary Care Provider: NO PCP This is a 61yo M with a PMH of COPD, ongoing tobacco use and dyslipidemia who presents with worsening shortness of breath over the past week. Feels like his lungs are "filled up" and he cannot get a full breath in. Also endorsing productive cough with brownish sputum and decreased appetite. Denies any fever or chills. No pleuritic chest pain or hemoptysis. COPD and known condition. Patient continues to smoke 1 pack/day. States he had pneumonia back in 2018 with a similar presentation. Interested in smoking cessation. No lightheadedness, headache, chest pain, vomiting, abdominal pain, dysuria, diarrhea or constipation. In the process of setting up more routine pulmonology care with PCP. Allergies Allergy/AdvReac Type Severity Reaction Status Date / Time Sulfa (Sulfonamide Allergy Unknown RASH Verified 04/16/21 16:03 Antibiotics) Home Medications Medication Instructions Recorded Confirmed Type albuterol sulfate 90 mcg/actuation 2 puff INHALATION Q4 PRN 04/16/21 04/16/21 History aerosol inhaler atorvastatin 20 mg tablet 20 mg PO DAILY 04/16/21 04/16/21 History fluticasone 250 mcg-salmeterol 50 1 inh INHALATION BID 04/16/21 04/16/21 History mcg/dose blistr powdr for inhalation (Advair Diskus) multivitamin 1 tab PO DAILY 04/16/21 04/16/21 History Past Med/Surg History Medical History (Updated 04/16/21 @ 18:13 by Lexi Rolle PA-C) COPD, severe Tobacco use disorder Surgical History H/O inguinal hernia repair History of appendectomy Family History (Updated 04/16/21 @ 18:12 by Lexi Rolle PA-C) Father Myocardial infarction Other Diabetes Social History (Updated 04/16/21 @ 19:06 by Lexi Rolle PA-C) Smoking Status: Current every day smoker Tobacco Type: Cigarettes packs per day: 1; Cigarettes Per Day: 20-40; Hx Alcohol Use: No Hx Substance Use: No Feels Safe at Home: Yes Review of Systems Review of Systems: At least ten systems reviewed and negative except as noted in the HPI. Physical Exam Physical Exam: General Appearance: WD/WN, vitals as above, NAD, sitting up in bed, pleasant, conversing easily Head: normocephalic, atraumatic Eyes: normal inspection, PERRL, conjunctivae normal, anicteric sclerae ENT: external ear and nose normal, oropharynx normal Neck: normal visual inspection, trachea midline, no thyromegaly Respiratory: increased respiratory effort, coarse lung sounds throughout with scattered wheezing. No rales or rhonchi. No accessory muscle use Cardiovascular: regular rate, rhythm, no murmur, normal peripheral pulses, no BLE edema. Vessels: no JVD Chest: normal inspection of chest Abdomen/GI: normal bowel sounds, soft, nontender, no hepatosplenomegaly Extremities/Musculoskeletal: no cyanosis or clubbing, extremities motor strength 5/5 Neurologic: PERRL, EOMI, accommodation nl, no face palsy, no dysarthria, CN's II-XI intact bilaterally and moves all extremities Psychiatric: A+Ox3, euthymic affect Skin: no rashes, normal color, warm/dry Results & Data Results & Data ([facility]) Vital Signs (Past 12 Hours) Vital Signs Temp Pulse Pulse Pulse Resp BP BP 04/16/21 16:30 88 111/73 08/17/21 16:23 83 19 04/16/21 16:00 85 22 105/69 04/16/21 15:30 92 H 23 101/76 04/16/21 15:09 97 H 20 107/69 04/16/21 15:08 91 H 16 107/69 04/16/21 14:52 37 C 100 H 24 104/68 Pulse Ox 04/16/21 16:30 93 04/16/21 16:23 91 04/16/21 16:00 91 04/16/21 15:30 93 04/16/21 15:09 92 04/16/21 15:08 91 04/16/21 14:52 86 L Laboratory Results Short CBC 04/16/21 Range/Units 15:30 WBC 7.67 (4.8-10.8) K/uL Hgb 14.3 (14.0-18.0) g/dL Hct 41.4 L (42-52) % Plt Count 224 (130-400) K/uL BMP 04/16/21 15:30 Sodium 133 L Potassium 3.5 Chloride 101 Carbon Dioxide 26 BUN 14 Creatinine 0.75 Glucose 113 H Calcium 9.1 Cardiac Enzymes 04/16/21 Range/Units 15:30 Troponin I < 0.015 (0-0.045) ng/ml Liver Function 04/16/21 Range/Units 15:30 Total Bilirubin 1.0 (0.2-1) mg/dl AST 8 L (15-37) U/L ALT 18 (12-78) U/L Alkaline Phosphatase 43 L (45-117) U/L Albumin 3.0 L (3.4-5.0) gm/dl Diagnostic Findings Chest X-Ray 04/16/21 14:59 XR chest 1V portable CLINICAL HISTORY: Dyspnea COMPARISON STUDY: December 25, 2017 FINDINGS: No pneumothorax. No pleural effusion. Interval worsening of diffuse reticular opacities since prior study which might represent chronic fibrotic changes or/and pulmonary edema. Interval development of patchy airspace component mostly within bilateral lower lobes. Few nodular opacities within right and left bases are new since prior study and might represent inflammatory changes/pneumonia. Cardiomediastinal silhouette is within normal limits in size. Minimal pulmonary vascular congestion.. Aorta is calcified. Osseous structures: Mild degenerative changes of the spine. IMPRESSION: 1. Airspace opacities at bilateral lower lungs likely represent multifocal pneumonia. Follow-up evaluation with PA and lateral chest radiograph in 4-6 weeks is recommended to document resolution. 2. Possible pulmonary edema. Pulmonary vascular congestion. 3. The rest of findings as above. ACT 112: Negative or not required by law. The above report was generated using voice recognition software. It may contain grammatical, syntax or spelling errors. Electronically signed by: Shona Broderick DO 04/16/2021 4:41 PM Code Status & VTE Plan VTE Prophylaxis Plan VTE Prophylaxis will be ordered: Yes Supervising Physician Co-Signing Physician Notes I saw this patient with the physician criminal legal assistant, I participated in the history, physical, review of systems, and physical exam. I reviewed the medications with the patient and the physician criminal legal assistant and helped reconcile the medications. I helped take a detailed family and social history as well. I formulated the assessment and plan personally with the physician criminal legal assistant and went over it with the patient. ROS-No Headache, No Visual Changes, No Nausea, No Vomiting, No Fever, No Chills, No Neck Pain or Stiffness, No Chest Pain, No Palpitations, + SOB, +LARA, + Cough, + Yellow/Brown Sputum, No Wheezing, No Abdominal Pain, No Diarrhea, No Hematemesis, No Hemoptysis, No Unexpected Weight Loss, No Flank pain, No Melena, No Hematochezia, No Frequency, No Urgency, No Burning, No Hematuria, No Rashes, No Diaphoresis. Appetite is Normal Physical Exam Gen-AAO x 3, NAD, Afebrile Head-NCAT, EOMI, PERRLA, Anicteric Sclera, No Posterior Pharyngeal Erythema Neck-Supple, No JVD, No Thyromegaly, No Masses, No LAD, No Bruits Lungs-Faint Basilar Rales, No Rhonchi, No Wheezing, No Crepitus Chest-No S4, +S1, +S2, No S3, No Murmurs, No Rubs, No Gallops, No Ectopy Abdomen-Soft, Bowel Sounds Present, Non Tender, Non Distended, No Hepatomegaly, No Splenomegaly, No Palpable Masses, No Rebound, No Rigidity, No Guarding Musculoskeletal-Full Range of Motion Bilaterally, No CVAT Extremities-No Cyanosis, No Clubbing, No Edema Nuero-Cranial Nerves II-XII grossly intact, Motor WNL, DTRs WNL, Strength WNL, Non Focal Psych-Normal Mood
[2021-04-16] MEDS ORDERED: ALUMINUM/MAGNESIUM SUSP 30 ML UDC PO PRN (19:54)
[2021-04-16] MEDS ORDERED: BENZONATATE 100 MG CAPSULE PO PRN (19:54)
[2021-04-16] MEDS ORDERED: ALBUTEROL HFA 8 GM INHALER INH PRN (19:54)
[2021-04-16] MEDS ORDERED: POLYETHYLENE (MIRALAX) 17 GM PACK PO PRN (19:54)
[2021-04-16] MEDS ORDERED: MAGNESIUM HYDROXIDE SUSP 30 ML UDC PO PRN (19:54)
[2021-04-16] MEDS ORDERED: ONDANSETRON INJ 2 MG/ML 2 ML VIAL IV PRN (20:10)
[2021-04-16] MEDS ORDERED: POTASSIUM CHLORIDE CRTAB 20 MEQ TABCR PO STA (21:32)
[2021-04-16] MEDS: ALBUT/IPRATROP 3MG/0.5MG NEB 3 ML VIAL NEB SCH (22:08)
[2021-04-16] MEDS: ENOXAPARIN INJ 40 MG/0.4 ML SYR SQ SCH (22:33)
[2021-04-16 23:09] LABS: Appearance Urine Clear (Clear); Bilirubin Urine Negative (Negative); Blood Urine Negative (Negative); Color Urine Yellow; Glucose Urine UA Negative (Negative); Ketones Urine Trace (Negative); Leukocyte Esterase Urine Negative (Negative); Nitrite Urine Negative (Negative); Protein Urine Negative (Negative); Specific Gravity Urine 1.009 (1.000-1.030); Urobilinogen Urine Negative (Negative); pH Urine 6.5 (4.5-7.5)
[2021-04-17] MEDS: ACETAMINOPHEN 325 MG TAB PO PRN (03:43)
[2021-04-17] MEDS: ALBUT/IPRATROP 3MG/0.5MG NEB 3 ML VIAL NEB SCH ×4 (07:20→19:16)
[2021-04-17 07:53] LABS: Hematocrit (blood only) 39.8 % (42-52); Hemoglobin 13.8 g/dL (14.0-18.0); Immature Granulocytes # (auto) 0.02 K/uL (0.00-0.02); Immature Granulocytes % (auto) 0.3 %; Lymphocytes # (auto) 0.73 K/uL (1.2-3.4); Lymphocytes % (auto) 11.9 %; Mean Corpuscular Hemoglobin 30.9 pg (25-34); Mean Corpuscular Hgb Conc 34.7 g/dL (32-36); Monocytes % (auto) 6.5 %; Neutrophils # (auto) 4.96 K/uL (1.4-6.5); Neutrophils % (auto) 81.3 %; Platelet Count 241 K/uL (130-400); RDW Coefficient of Variation 12.5 % (11.5-14.5); RDW Standard Deviation 39.9 fL (36.4-46.3); Red Blood Count 4.47 M/uL (4.7-6.1); White Blood Count 6.11 K/uL (4.8-10.8)
[2021-04-17] MEDS: MULTIVITAMIN TAB PO SCH (08:03)
[2021-04-17] MEDS: guaiFENesin 600 MG TABCR PO SCH ×2 (08:03→20:17)
[2021-04-17] MEDS: FLUTICASONE/VILANTEROL 100/25MCG 14 PUFFS/INHALER INH SCH (08:12)
[2021-04-17 08:21] LABS: BUN Creatinine Ratio 24.2 (10-20); Calcium 9.5 mg/dl (8.5-10.1); Creatinine Clr Calc Pharmacy 114.7 ml/min; Est GFR (African American) 120.9 ml/min; Est GFR (Non-African American) 104.3 ml/min; Magnesium 2.6 mg/dl (1.8-2.4); Potassium 4.3 mmol/L (3.5-5.1)
[2021-04-17 08:30] LABS: Phosphorus 2.4 mg/dl (2.5-4.9)
[2021-04-17] MEDS: ATORVASTATIN 20 MG TAB PO SCH (09:42)
[2021-04-17] MEDS: methylPREDNISolone 40 MG in SYRINGE 0 ML IV SCH ×2 (09:42→17:19)
[2021-04-17 10:24] LABS: Estimated Average Glucose 126 mg/dl
--- NOTE | 2021-04-17 12:02 | Hospitalist Progress Note ---
Date of Service April 17, 2021 Assessment & Plan (1) Acute respiratory failure with hypoxia: Plan: 61yo M with COPD, ongoing tobacco use and dyslipidemia who presents with worsening shortness of breath over the past week. Hypoxic at 88% on room air, 92% on 3L NC Not on supplemental O2 at baseline - continue (2) COPD exacerbation: Plan: Significant smoking history Given 125mg IV solumedrol, albuterol neb in ER Continue IV steroids, duonebs, antibiotics (3) Multifocal pneumonia: Plan: CXR with airspace opacities at bilateral lower lungs likely represent multifocal pneumonia Afebrile, no leukocytosis, procal wnl Continue azithromycin and Rocephin for CAP Follow-up evaluation with PA and lateral chest radiograph in 4-6 weeks is recommended to document resolution Continue supplemental oxygen as needed, keep O2 sats at 88 to 92% given history of COPD Flutter valve ordered, guaifenesin Sputum culture ordered (4) Tobacco use disorder: Plan: Discussed importance of smoking cessation - education ordered DVT Ppx: SQ lovenox Code status: FULL PCP: Dr. Odnonell Dispo: Admitted to PCU Admission and Anticipated Discharge Date Admission Date: April 16, 2021 Subjective Patient seen in follow-up of acute hypoxic respiratory failure, multifocal pneumonia, COPD exacerbation Currently sitting up in bed, in no acute distress using supplemental oxygen Says he does not use suppl. oxygen usually at home, however he has some at home from 2018 Currently denies any chest pain, increased shortness of breath, says he feels better He has a productive cough, green sputum No abdominal pain, nausea or vomiting updated at the bedside Review of Systems Review of Systems: All systems reviewed & are unremarkable except as noted in Subjective Physical Exam Physical Exam: General Appearance: WD/WN, vitals as above, NAD, sitting up in bed on suppl. O2 via NC Head: normocephalic, atraumatic Eyes: normal inspection, PERRL, EOMI, conjunctivae normal, anicteric sclerae ENT: external ear and nose normal, oropharynx normal Neck: normal visual inspection, trachea midline, no thyromegaly Respiratory: normal respiratory effort, + rhonchi diffuse, no significant wheezing. No accessory muscle use Cardiovascular: regular rate, rhythm, no murmur, normal peripheral pulses, no BLE edema. Vessels: no JVD Chest: normal inspection of chest Abdomen/GI: normal bowel sounds, soft, nontender Extremities/Musculoskeletal: Moves extremities Skin: no rashes, normal color, warm/dry Neurologic: PERRL, EOMI, no face palsy, speech fluent, answering questions appropriately, moves all extremities Psychiatric: A+Ox3, euthymic affect Results & Data Results & Data ([facility]) Vital Signs (Past 12 Hours) Vital Signs Temp Pulse Pulse Resp BP Pulse Ox Pulse Ox 04/17/21 11:08 71 18 89 L 04/17/21 08:00 52 L 96 04/17/21 07:43 36.3 C L 80 18 129/68 96 04/17/21 07:20 69 18 90 04/17/21 03:50 36.4 C L 80 18 114/73 93 Laboratory Results 04/17/21 04/17/21 04/17/21 Range/Units 06:50 06:50 06:50 WBC (4.8-10.8) K/uL RBC (4.7-6.1) M/uL Hgb (14.0-18.0) g/dL Hct (42-52) % MCV (80-100) fL MCH (25-34) pg MCHC (32-36) g/dL RDW Std Deviation (36.4-46.3) fL RDW Coeff of Jeff (11.5-14.5) % Plt Count (130-400) K/uL MPV (7.4-10.4) fL Immature Gran % (Auto) % Neut % (Auto) % Lymph % (Auto) % Trinity % (Auto) % Eos % (Auto) % Baso % (Auto) % Neut # (Auto) (1.4-6.5) K/uL Lymph # (Auto) (1.2-3.4) K/uL Trinity # (Auto) (0.11-0.59) K/uL Eos # (Auto) (0-0.5) K/uL Baso # (Auto) (0-0.2) K/uL Immature Gran # (Auto) (0.00-0.02) K/uL Sodium 137 (136-145) mmol/L Potassium 4.3 D (3.5-5.1) mmol/L Chloride 103 (98-107) mmol/L Carbon Dioxide 29 (21-32) mmol/L Anion Gap 5.0 (3-11) BUN 16 (7-18) mg/dl Creatinine 0.66 (0.6-1.4) mg/dl Est Cr Clr Drug Dosing 114.7 ml/min Est GFR ( Amer) 120.9 ml/min Est GFR (Non-Af Amer) 104.3 ml/min BUN/Creatinine Ratio 24.2 H (10-20) Glucose 144 H (70-99) mg/dl Estimat Average Glucose 126 mg/dl Hemoglobin A1c 6.0 H (4.5-5.6) % Calcium 9.5 (8.5-10.1) mg/dl Phosphorus 2.4 L (2.5-4.9) mg/dl Magnesium 2.6 H (1.8-2.4) mg/dl Total Bilirubin (0.2-1) mg/dl AST (15-37) U/L ALT (12-78) U/L Alkaline Phosphatase (45-117) U/L Troponin I (0-0.045) ng/ml NT-Pro-B Natriuret Pep (0-900) pg/ml Total Protein (6.4-8.2) gm/dl Albumin (3.4-5.0) gm/dl Globulin (2.5-4.0) gm/dl Albumin/Globulin Ratio (0.9-2) Procalcitonin 0.28 (0-0.5) ng/ml Urine Color Urine Appearance (Clear) Urine pH (4.5-7.5) Ur Specific [place] (1.000-1.030) Urine Protein (Negative) Urine Glucose (UA) (Negative) Urine Ketones (Negative) Urine Blood (Negative) Urine Nitrite (Negative) Urine Bilirubin (Negative) Urine Urobilinogen (Negative) Ur Leukocyte Esterase (Negative) COVID-19 Eval Order SARS-CoV-2 (PCR) (Negative) Hepatitis C Ab Screen (Neg) 04/17/21 04/16/21 04/16/21 Range/Units 06:50 22:00 15:30 WBC 6.11 (4.8-10.8) K/uL RBC 4.47 L (4.7-6.1) M/uL Hgb 13.8 L (14.0-18.0) g/dL Hct 39.8 L (42-52) % MCV 89.0 (80-100) fL MCH 30.9 (25-34) pg MCHC 34.7 (32-36) g/dL RDW Std Deviation 39.9 (36.4-46.3) fL RDW Coeff of Jeff 12.5 (11.5-14.5) % Plt Count 241 (130-400) K/uL MPV 9.0 (7.4-10.4) fL Immature Gran % (Auto) 0.3 % Neut % (Auto) 81.3 % Lymph % (Auto) 11.9 % Trinity % (Auto) 6.5 % Eos % (Auto) 0.0 % Baso % (Auto) 0.0 % Neut # (Auto) 4.96 (1.4-6.5) K/uL Lymph # (Auto) 0.73 L (1.2-3.4) K/uL Trinity # (Auto) 0.40 (0.11-0.59) K/uL Eos # (Auto) 0.00 (0-0.5) K/uL Baso # (Auto) 0.00 (0-0.2) K/uL Immature Gran # (Auto) 0.02 (0.00-0.02) K/uL Sodium (136-145) mmol/L Potassium (3.5-5.1) mmol/L Chloride (98-107) mmol/L Carbon Dioxide (21-32) mmol/L Anion Gap (3-11) BUN (7-18) mg/dl Creatinine (0.6-1.4) mg/dl Est Cr Clr Drug Dosing ml/min Est GFR ( Amer) ml/min Est GFR (Non-Af Amer) ml/min BUN/Creatinine Ratio (10-20) Glucose (70-99) mg/dl Estimat Average Glucose mg/dl Hemoglobin A1c (4.5-5.6) % Calcium (8.5-10.1) mg/dl Phosphorus (2.5-4.9) mg/dl Magnesium (1.8-2.4) mg/dl Total Bilirubin (0.2-1) mg/dl AST (15-37) U/L ALT (12-78) U/L Alkaline Phosphatase (45-117) U/L Troponin I (0-0.045) ng/ml NT-Pro-B Natriuret Pep (0-900) pg/ml Total Protein (6.4-8.2) gm/dl Albumin (3.4-5.0) gm/dl Globulin (2.5-4.0) gm/dl Albumin/Globulin Ratio (0.9-2) Procalcitonin (0-0.5) ng/ml Urine Color Yellow Urine Appearance Clear (Clear) Urine pH 6.5 (4.5-7.5) Ur Specific [place] 1.009 (1.000-1.030) Urine Protein Negative (Negative) Urine Glucose (UA) Negative (Negative) Urine Ketones Trace H (Negative) Urine Blood Negative (Negative) Urine Nitrite Negative (Negative) Urine Bilirubin Negative (Negative) Urine Urobilinogen Negative (Negative) Ur Leukocyte Esterase Negative (Negative) COVID-19 Eval Order SARS-CoV-2 (PCR) (Negative) Hepatitis C Ab Screen Neg (Neg) 04/16/21 04/16/21 04/16/21 Range/Units 15:30 15:30 15:30 WBC (4.8-10.8) K/uL RBC (4.7-6.1) M/uL Hgb (14.0-18.0) g/dL Hct (42-52) % MCV (80-100) fL MCH (25-34) pg MCHC (32-36) g/dL RDW Std Deviation (36.4-46.3) fL RDW Coeff of Jeff (11.5-14.5) % Plt Count (130-400) K/uL MPV (7.4-10.4) fL Immature Gran % (Auto) % Neut % (Auto) % Lymph % (Auto) % Trinity % (Auto) % Eos % (Auto) % Baso % (Auto) % Neut # (Auto) (1.4-6.5) K/uL Lymph # (Auto) (1.2-3.4) K/uL Trinity # (Auto) (0.11-0.59) K/uL Eos # (Auto) (0-0.5) K/uL Baso # (Auto) (0-0.2) K/uL Immature Gran # (Auto) (0.00-0.02) K/uL Sodium 133 L (136-145) mmol/L Potassium 3.5 (3.5-5.1) mmol/L Chloride 101 (98-107) mmol/L Carbon Dioxide 26 (21-32) mmol/L Anion Gap 6.0 (3-11) BUN 14 (7-18) mg/dl Creatinine 0.75 (0.6-1.4) mg/dl Est Cr Clr Drug Dosing 106.8 ml/min Est GFR ( Amer) 114.8 ml/min Est GFR (Non-Af Amer) 99.0 ml/min BUN/Creatinine Ratio 19.1 (10-20) Glucose 113 H (70-99) mg/dl Estimat Average Glucose mg/dl Hemoglobin A1c (4.5-5.6) % Calcium 9.1 (8.5-10.1) mg/dl Phosphorus (2.5-4.9) mg/dl Magnesium 2.0 (1.8-2.4) mg/dl Total Bilirubin 1.0 (0.2-1) mg/dl AST 8 L (15-37) U/L ALT 18 (12-78) U/L Alkaline Phosphatase 43 L (45-117) U/L Troponin I < 0.015 (0-0.045) ng/ml NT-Pro-B Natriuret Pep 125 (0-900) pg/ml Total Protein 7.3 (6.4-8.2) gm/dl Albumin 3.0 L (3.4-5.0) gm/dl Globulin 4.3 H (2.5-4.0) gm/dl Albumin/Globulin Ratio 0.7 L (0.9-2) Procalcitonin 0.28 (0-0.5) ng/ml Urine Color Urine Appearance (Clear) Urine pH (4.5-7.5) Ur Specific [place] (1.000-1.030) Urine Protein (Negative) Urine Glucose (UA) (Negative) Urine Ketones (Negative) Urine Blood (Negative) Urine Nitrite (Negative) Urine Bilirubin (Negative) Urine Urobilinogen (Negative) Ur Leukocyte Esterase (Negative) COVID-19 Eval Order SARS-CoV-2 (PCR) (Negative) Hepatitis C Ab Screen (Neg) 04/16/21 04/16/21 04/16/21 Range/Units 15:30 15:25 15:25 WBC 7.67 (4.8-10.8) K/uL RBC 4.58 L (4.7-6.1) M/uL Hgb 14.3 (14.0-18.0) g/dL Hct 41.4 L (42-52) % MCV 90.4 (80-100) fL MCH 31.2 (25-34) pg MCHC 34.5 (32-36) g/dL RDW Std Deviation 41.9 (36.4-46.3) fL RDW Coeff of Jeff 12.5 (11.5-14.5) % Plt Count 224 (130-400) K/uL MPV 9.0 (7.4-10.4) fL Immature Gran % (Auto) 0.1 % Neut % (Auto) 71.7 % Lymph % (Auto) 10.0 % Trinity % (Auto) 18.1 % Eos % (Auto) 0.0 % Baso % (Auto) 0.1 % Neut # (Auto) 5.49 (1.4-6.5) K/uL Lymph # (Auto) 0.77 L (1.2-3.4) K/uL Trinity # (Auto) 1.39 H (0.11-0.59) K/uL Eos # (Auto) 0.00 (0-0.5) K/uL Baso # (Auto) 0.01 (0-0.2) K/uL Immature Gran # (Auto) 0.01 (0.00-0.02) K/uL Sodium (136-145) mmol/L Potassium (3.5-5.1) mmol/L Chloride (98-107) mmol/L Carbon Dioxide (21-32) mmol/L Anion Gap (3-11) BUN (7-18) mg/dl Creatinine (0.6-1.4) mg/dl Est Cr Clr Drug Dosing ml/min Est GFR ( Amer) ml/min Est GFR (Non-Af Amer) ml/min BUN/Creatinine Ratio (10-20) Glucose (70-99) mg/dl Estimat Average Glucose mg/dl Hemoglobin A1c (4.5-5.6) % Calcium (8.5-10.1) mg/dl Phosphorus (2.5-4.9) mg/dl Magnesium (1.8-2.4) mg/dl Total Bilirubin (0.2-1) mg/dl AST (15-37) U/L ALT (12-78) U/L Alkaline Phosphatase (45-117) U/L Troponin I (0-0.045) ng/ml NT-Pro-B Natriuret Pep (0-900) pg/ml Total Protein (6.4-8.2) gm/dl Albumin (3.4-5.0) gm/dl Globulin (2.5-4.0) gm/dl Albumin/Globulin Ratio (0.9-2) Procalcitonin (0-0.5) ng/ml Urine Color Urine Appearance (Clear) Urine pH (4.5-7.5) Ur Specific [place] (1.000-1.030) Urine Protein (Negative) Urine Glucose (UA) (Negative) Urine Ketones (Negative) Urine Blood (Negative) Urine Nitrite (Negative) Urine Bilirubin (Negative) Urine Urobilinogen (Negative) Ur Leukocyte Esterase (Negative) COVID-19 Eval Order Covid19 at [facility] SARS-CoV-2 (PCR) NEGATIVE (Negative) Hepatitis C Ab Screen (Neg) Medications Administered Current Inpatient Medications Acetaminophen (Acetaminophen 325 Mg Tab) 650 mg PO Q4H PRN PRN Reason: Pain or Fever Stop: 05/16/21 19:53 Last Admin: 04/17/21 03:43 Dose: 650 mg Documented by: Al Hydrox/Mg Hydrox/Simethicone (Aluminum/Magnesium Susp 30 Ml Udc) 15 ml PO Q4H PRN PRN Reason: Dyspepsia Stop: 05/16/21 19:53 Albuterol (Albut/Ipratrop 3mg/0.5mg Neb 3 Ml Vial) 3 ml NEB QIDR CAROLYN Stop: 05/16/21 19:53 Last Admin: 04/17/21 11:07 Dose: 3 ml Documented by: Albuterol (Albuterol Hfa 8 Gm Inhaler) 2 puffs INH Q4 PRN PRN Reason: Wheezing Stop: 05/16/21 19:53 Atorvastatin Calcium (Atorvastatin 20 Mg Tab) 20 mg PO DAILY [facility] Stop: 05/17/21 08:59 Last Admin: 04/17/21 09:42 Dose: 20 mg Documented by: Benzonatate (Benzonatate 100 Mg Capsule) 100 mg PO TID PRN PRN Reason: cough Stop: 05/16/21 19:53 Enoxaparin Sodium (Enoxaparin Inj 40 Mg/0.4 Ml Syr) 40 mg SQ Q24H [facility] Stop: 05/16/21 21:59 Last Admin: 04/16/21 22:33 Dose: 40 mg Documented by: Fluticasone/Vilanterol (Fluticasone/Vilanterol 100/25mcg 14 Puffs/Inhaler) 1 puffs INH DAILY [facility] Stop: 05/17/21 08:59 Last Admin: 04/17/21 08:12 Dose: 1 puffs Documented by: Guaifenesin (Guaifenesin 600 Mg Tabcr) 1,200 mg PO Q12 [facility] Stop: 05/17/21 08:59 Last Admin: 04/17/21 08:03 Dose: 1,200 mg Documented by: Ceftriaxone Sodium 2,000 mg/ (Dextrose) 50 mls @ 100 mls/hr IV Q24H [facility]; Protocol Stop: 04/24/21 18:59 Azithromycin 500 mg/ Dextrose 255 mls @ 125 mls/hr IV DAILY@1700 [facility] Stop: 04/18/21 19:03 Methylprednisolone 40 mg/ (Syringe) 0.64 mls @ 1.5 mls/min IV Q8H [facility] Stop: 05/17/21 07:59 Last Admin: 04/17/21 09:42 Dose: Not Given Documented by: Magnesium Hydroxide (Magnesium Hydroxide Susp 30 Ml Udc) 30 ml PO Q12H PRN PRN Reason: Constipation Stop: 05/16/21 19:53 Methylprednisolone (Methylprednisolone 40 Mg/Ml Vial) 40 mg IV Q8H [facility] Stop: 05/17/21 07:59 Last Admin: 04/17/21 09:41 Dose: 40 mg Documented by: Multivitamins (Multivitamin Tab) 1 tab PO DAILY [facility] Stop: 05/17/21 08:59 Last Admin: 04/17/21 08:03 Dose: 1 tab Documented by: Ondansetron HCl (Ondansetron Inj 2 Mg/Ml 2 Ml Vial) 4 mg IV Q6H PRN PRN Reason: Nausea Stop: 05/16/21 20:09 Polyethylene Glycol (Polyethylene (Miralax) 17 Gm Pack) 17 gm PO DAILY PRN PRN Reason: Constipation Stop: 05/16/21 19:53
--- NOTE | 2021-04-17 16:53 | Electrocardiogram Report ---
Test Reason : Blood Pressure : / mmHG Vent. Rate : 092 BPM Atrial Rate : 092 BPM P-R Int : 164 ms QRS Dur : 088 ms QT Int : 344 ms P-R-T Axes : 078 087 070 degrees QTc Int : 425 ms Poor data quality, interpretation may be adversely affected Normal sinus rhythm Normal ECG When compared with ECG of 12-OCT-2017 16:03, No significant change was found Confirmed by Artis Pina ([id number]) on 04/17/2021 4:52:56 PM Referred By: REFERRED SELF Confirmed By:Artis Pina
--- NOTE | 2021-04-17 17:02 | Electrocardiogram Report ---
Test Reason : Blood Pressure : / mmHG Vent. Rate : 057 BPM Atrial Rate : 057 BPM P-R Int : 174 ms QRS Dur : 086 ms QT Int : 422 ms P-R-T Axes : 083 068 059 degrees QTc Int : 410 ms Sinus bradycardia Otherwise normal ECG When compared with ECG of 16-APR-2021 15:12, (unconfirmed) Vent. rate has decreased BY 35 BPM Confirmed by Artis Pina ([id number]) on 04/17/2021 5:01:56 PM Referred By: REFERRED SELF Confirmed By:rAtis Pina
[2021-04-17] MEDS: AZITHROMYCIN 500 MG in DEXTROSE 5% 250 ML IV SCH (17:19)
[2021-04-17] MEDS: NICOTINE 14 MG/24 HR PATCH TD SCH (17:39)
[2021-04-17] MEDS: ENOXAPARIN INJ 40 MG/0.4 ML SYR SQ SCH (20:17)
[2021-04-17] MEDS: cefTRIAXone SODIUM 2,000 MG in DEXTROSE 5% 50 ML IV SCH (20:17)
[2021-04-17] MEDS ORDERED: LORazepam 0.5 MG TAB PO STA (20:35)
[2021-04-18] MEDS: methylPREDNISolone 40 MG in SYRINGE 0 ML IV SCH ×4 (00:11→23:03)
[2021-04-18 07:23] LABS: Phosphorus 3.3 mg/dl (2.5-4.9)
[2021-04-18] MEDS: ALBUT/IPRATROP 3MG/0.5MG NEB 3 ML VIAL NEB SCH ×4 (07:25→19:17)
[2021-04-18] MEDS: guaiFENesin 600 MG TABCR PO SCH ×2 (07:49→20:10)
[2021-04-18] MEDS: ATORVASTATIN 20 MG TAB PO SCH (07:49)
[2021-04-18] MEDS: FLUTICASONE/VILANTEROL 100/25MCG 14 PUFFS/INHALER INH SCH (07:50)
[2021-04-18] MEDS: MULTIVITAMIN TAB PO SCH (07:51)
[2021-04-18 07:52] LABS: Magnesium 2.2 mg/dl (1.8-2.4)
[2021-04-18 07:59] LABS: Hematocrit (blood only) 36.8 % (42-52); Hemoglobin 12.6 g/dL (14.0-18.0); Mean Corpuscular Hemoglobin 30.7 pg (25-34); Mean Corpuscular Hgb Conc 34.2 g/dL (32-36); Mean Corpuscular Volume 89.5 fL (80-100); Platelet Count 270 K/uL (130-400); RDW Coefficient of Variation 12.5 % (11.5-14.5); RDW Standard Deviation 40.2 fL (36.4-46.3); Red Blood Count 4.11 M/uL (4.7-6.1); White Blood Count 10.37 K/uL (4.8-10.8)
[2021-04-18 08:05] LABS: BUN Creatinine Ratio 21.1 (10-20); Creatinine Clr Calc Pharmacy 117.7 ml/min; Est GFR (African American) 121.7 ml/min
[2021-04-18] MEDS: ACETAMINOPHEN 325 MG TAB PO PRN (16:41)
[2021-04-18] MEDS: AZITHROMYCIN 500 MG in DEXTROSE 5% 250 ML IV SCH (16:54)
[2021-04-18] MEDS: NICOTINE 14 MG/24 HR PATCH TD SCH (17:27)
[2021-04-18] MEDS: cefTRIAXone SODIUM 2,000 MG in DEXTROSE 5% 50 ML IV SCH (20:09)
[2021-04-18] MEDS: ENOXAPARIN INJ 40 MG/0.4 ML SYR SQ SCH (20:10)
[2021-04-19 06:51] LABS: Hematocrit (blood only) 40.8 % (42-52); Hemoglobin 14.1 g/dL (14.0-18.0); Mean Corpuscular Hemoglobin 31.3 pg (25-34); Mean Corpuscular Hgb Conc 34.6 g/dL (32-36); Mean Corpuscular Volume 90.7 fL (80-100); Platelet Count 311 K/uL (130-400); RDW Coefficient of Variation 12.7 % (11.5-14.5); RDW Standard Deviation 41.5 fL (36.4-46.3); White Blood Count 13.09 K/uL (4.8-10.8)
[2021-04-19] MEDS: ALBUT/IPRATROP 3MG/0.5MG NEB 3 ML VIAL NEB SCH ×3 (07:26→15:39)
[2021-04-19 07:38] LABS: BUN Creatinine Ratio 20.2 (10-20); Calcium 9.5 mg/dl (8.5-10.1); Creatinine Clr Calc Pharmacy 98.3 ml/min; Est GFR (African American) 113.5 ml/min; Est GFR (Non-African American) 97.9 ml/min; Magnesium 2.7 mg/dl (1.8-2.4); Potassium 4.1 mmol/L (3.5-5.1)
[2021-04-19] MEDS: ATORVASTATIN 20 MG TAB PO SCH (08:00)
[2021-04-19] MEDS: guaiFENesin 600 MG TABCR PO SCH (08:00)
[2021-04-19] MEDS: MULTIVITAMIN TAB PO SCH (08:00)
[2021-04-19] MEDS: FLUTICASONE/VILANTEROL 100/25MCG 14 PUFFS/INHALER INH SCH (08:00)
--- NOTE | 2021-04-19 09:47 | Hospitalist Progress Note ---
Date of Service April 18, 2021 Assessment & Plan (1) Acute respiratory failure with hypoxia: Plan: 61yo M with COPD, ongoing tobacco use and dyslipidemia who presents with worsening shortness of breath over the past week. Hypoxic at 88% on room air, 92% on 3L NC on admission Not on supplemental O2 at baseline - continue currently on RA Reports that he has oxygen at home from 2018 however does not use any at this time We will obtain 2 step before discharge (2) COPD exacerbation: Plan: Significant smoking history Given 125mg IV solumedrol, albuterol neb in ER Continue IV steroids, duonebs, antibiotics (3) Multifocal pneumonia: Plan: CXR with airspace opacities at bilateral lower lungs likely represent multifocal pneumonia Afebrile, no leukocytosis, procal wnl Continue azithromycin and Rocephin for CAP Follow-up evaluation with PA and lateral chest radiograph in 4-6 weeks is recommended to document resolution Continue supplemental oxygen as needed, keep O2 sats at 88 to 92% given history of COPD Flutter valve ordered, guaifenesin Sputum culture ordered Gram stain shows rare epithelial cells, many polys, gram-positive cocci and rare gram-positive bacilli Sputum culture currently pin-point growth present, or re-incubating (4) Tobacco use disorder: Plan: Discussed importance of smoking cessation - education ordered DVT Ppx: SQ lovenox Code status: FULL PCP: Dr. Odonnell Dispo: Admitted to PCU Admission and Anticipated Discharge Date Admission Date: April 16, 2021 Subjective Patient seen in follow-up of acute hypoxic respiratory failure, multifocal pneumonia, COPD exacerbation Currently sitting up in bed, in no acute distress, used supplemental oxygen 2L this AM, now on RA Says he does not use suppl. oxygen usually at home, however he has some at home from 2018 Currently denies any chest pain, increased shortness of breath, says he feels much better He has a productive cough, now much improved No abdominal pain, nausea or vomiting updated at the bedside Review of Systems Review of Systems: All systems reviewed & are unremarkable except as noted in Subjective Physical Exam Physical Exam: General Appearance: WD/WN, vitals as above, NAD, sitting up in bed on RA Head: normocephalic, atraumatic Eyes: normal inspection, PERRL, EOMI, conjunctivae normal, anicteric sclerae ENT: external ear and nose normal, oropharynx normal Neck: normal visual inspection, trachea midline, no thyromegaly Respiratory: normal respiratory effort, + mild rhonchi diffuse (improved), no wheezing. No accessory muscle use Cardiovascular: regular rate, rhythm, no murmur, normal peripheral pulses, no BLE edema. Vessels: no JVD Chest: normal inspection of chest Abdomen/GI: normal bowel sounds, soft, nontender Extremities/Musculoskeletal: Moves extremities Skin: no rashes, normal color, warm/dry Neurologic: PERRL, EOMI, no face palsy, speech fluent, answering questions appropriately, moves all extremities Psychiatric: A+Ox3, euthymic affect Results & Data Results & Data ([facility]) Vital Signs (Past 12 Hours) Vital Signs Temp Pulse Pulse Resp BP Pulse Ox 04/18/21 23:00 36.5 C 81 16 121/73 91
--- NOTE | 2021-04-19 09:52 | Hospitalist Progress Note ---
Date of Service April 19, 2021 Assessment & Plan (1) Acute respiratory failure with hypoxia: Plan: 61yo M with COPD, ongoing tobacco use and dyslipidemia who presents with worsening shortness of breath over the past week. Hypoxic at 88% on room air, 92% on 3L NC on admission Not on supplemental O2 at baseline - continue currently on RA Reports that he has oxygen at home from 2018 however does not use any at this time We will obtain 2 step before discharge (2) COPD exacerbation: Plan: Significant smoking history Given 125mg IV solumedrol, albuterol neb in ER Continue IV steroids, duonebs, antibiotics Will discharge on p.o. prednisone (3) Multifocal pneumonia: Plan: CXR with airspace opacities at bilateral lower lungs likely represent multifocal pneumonia Afebrile, no leukocytosis, procal wnl Continue azithromycin and Rocephin for CAP Follow-up evaluation with PA and lateral chest radiograph in 4-6 weeks is recommended to document resolution Continue supplemental oxygen as needed, keep O2 sats at 88 to 92% given history of COPD Flutter valve ordered, guaifenesin Sputum culture ordered Gram stain shows rare epithelial cells, many polys, gram-positive cocci and rare gram-positive bacilli Sputum culture currently pin-point growth present, or re-incubating Will discharge on Levaquin, follow-up with PCP (4) Tobacco use disorder: Plan: Discussed importance of smoking cessation - education ordered DVT Ppx: SQ lovenox Code status: FULL PCP: Dr. Odonnell Dispo: Plan to DC home Admission and Anticipated Discharge Date Admission Date: April 16, 2021 Subjective Patient seen in follow-up of acute hypoxic respiratory failure, multifocal pneumonia, COPD exacerbation Currently sitting up in bed, in no acute distress, now on RA Currently denies any chest pain, increased shortness of breath, says he feels much better Eager to go home No abdominal pain, nausea or vomiting 2 step ordered Review of Systems Review of Systems: All systems reviewed & are unremarkable except as noted in Subjective Physical Exam Physical Exam: General Appearance: WD/WN, vitals as above, NAD, sitting up in bed on RA Head: normocephalic, atraumatic Eyes: normal inspection, PERRL, EOMI, conjunctivae normal, anicteric sclerae ENT: external ear and nose normal, oropharynx normal Neck: normal visual inspection, trachea midline, no thyromegaly Respiratory: No accessory muscle use, normal respiratory effort, CTAB, no rhonchi, crackles, no wheezing (much improved) Cardiovascular: RRR no murmur, normal peripheral pulses, no BLE edema. Vessels: no JVD Chest: normal inspection of chest Abdomen/GI: normal bowel sounds, soft, nontender Extremities/Musculoskeletal: Moves extremities Skin: no rashes, normal color, warm/dry Neurologic: PERRL, EOMI, no face palsy, speech fluent, answering questions appropriately, moves all extremities Psychiatric: A+Ox3, euthymic affect Results & Data Results & Data ([facility]) Vital Signs (Past 12 Hours) Vital Signs Temp Pulse Pulse Resp BP Pulse Ox 04/19/21 07:37 36.8 C 63 16 127/84 91 04/19/21 07:26 54 L 55 L 16 90 04/19/21 02:51 36.4 C L 62 18 116/73 91 04/19/21 00:00 56 L 04/18/21 23:00 36.5 C 81 16 121/73 91 Laboratory Results 04/19/21 04/19/21 Range/Units 06:09 06:09 WBC 13.09 H (4.8-10.8) K/uL RBC 4.50 L (4.7-6.1) M/uL Hgb 14.1 (14.0-18.0) g/dL Hct 40.8 L (42-52) % MCV 90.7 (80-100) fL MCH 31.3 (25-34) pg MCHC 34.6 (32-36) g/dL RDW Std Deviation 41.5 (36.4-46.3) fL RDW Coeff of Jeff 12.7 (11.5-14.5) % Plt Count 311 (130-400) K/uL MPV 9.0 (7.4-10.4) fL Sodium 140 (136-145) mmol/L Potassium 4.1 (3.5-5.1) mmol/L Chloride 105 (98-107) mmol/L Carbon Dioxide 30 (21-32) mmol/L Anion Gap 5.0 (3-11) BUN 15 (7-18) mg/dl Creatinine 0.77 (0.6-1.4) mg/dl Est Cr Clr Drug Dosing 98.3 ml/min Est GFR ( Amer) 113.5 ml/min Est GFR (Non-Af Amer) 97.9 ml/min BUN/Creatinine Ratio 20.2 H (10-20) Glucose 133 H (70-99) mg/dl Calcium 9.5 (8.5-10.1) mg/dl Magnesium 2.7 H (1.8-2.4) mg/dl Medications Administered Current Inpatient Medications Acetaminophen (Acetaminophen 325 Mg Tab) 650 mg PO Q4H PRN PRN Reason: Pain or Fever Stop: 05/16/21 19:53 Last Admin: 04/18/21 16:41 Dose: 650 mg Documented by: Al Hydrox/Mg Hydrox/Simethicone (Aluminum/Magnesium Susp 30 Ml Udc) 15 ml PO Q4H PRN PRN Reason: Dyspepsia Stop: 05/16/21 19:53 Albuterol (Albut/Ipratrop 3mg/0.5mg Neb 3 Ml Vial) 3 ml NEB QIDR [facility] Stop: 05/16/21 19:53 Last Admin: 04/19/21 07:26 Dose: 3 ml Documented by: Albuterol (Albuterol Hfa 8 Gm Inhaler) 2 puffs INH Q4 PRN PRN Reason: Wheezing Stop: 05/16/21 19:53 Atorvastatin Calcium (Atorvastatin 20 Mg Tab) 20 mg PO DAILY [facility] Stop: 05/17/21 08:59 Last Admin: 04/19/21 08:00 Dose: 20 mg Documented by: Benzonatate (Benzonatate 100 Mg Capsule) 100 mg PO TID PRN PRN Reason: cough Stop: 05/16/21 19:53 Enoxaparin Sodium (Enoxaparin Inj 40 Mg/0.4 Ml Syr) 40 mg SQ Q24H [facility] Stop: 05/16/21 21:59 Last Admin: 04/18/21 20:10 Dose: 40 mg Documented by: Fluticasone/Vilanterol (Fluticasone/Vilanterol 100/25mcg 14 Puffs/Inhaler) 1 puffs INH DAILY [facility] Stop: 05/17/21 08:59 Last Admin: 04/19/21 08:00 Dose: 1 puffs Documented by: Guaifenesin (Guaifenesin 600 Mg Tabcr) 1,200 mg PO Q12 [facility] Stop: 05/17/21 08:59 Last Admin: 04/19/21 08:00 Dose: 1,200 mg Documented by: Ceftriaxone Sodium 2,000 mg/ (Dextrose) 50 mls @ 100 mls/hr IV Q24H [facility]; Protocol Stop: 04/24/21 18:59 Last Infusion: 04/18/21 21:05 Dose: Infused Documented by: Magnesium Hydroxide (Magnesium Hydroxide Susp 30 Ml Udc) 30 ml PO Q12H PRN PRN Reason: Constipation Stop: 05/16/21 19:53 Miscellaneous (Remove Nicoderm Patch) 1 ea N/A Q24H [facility] Stop: 05/18/21 16:58 Last Admin: 04/18/21 16:41 Dose: 1 ea Documented by: Multivitamins (Multivitamin Tab) 1 tab PO DAILY [facility] Stop: 05/17/21 08:59 Last Admin: 04/19/21 08:00 Dose: 1 tab Documented by: Nicotine (Nicotine 14 Mg/24 Hr Patch) 14 mg TD Q24H [facility] Stop: 05/17/21 16:59 Last Admin: 04/18/21 17:27 Dose: 14 mg Documented by: Ondansetron HCl (Ondansetron Inj 2 Mg/Ml 2 Ml Vial) 4 mg IV Q6H PRN PRN Reason: Nausea Stop: 05/16/21 20:09 Polyethylene Glycol (Polyethylene (Miralax) 17 Gm Pack) 17 gm PO DAILY PRN PRN Reason: Constipation Stop: 05/16/21 19:53
--- NOTE | 2021-04-19 10:23 | Discharge Summary ---
Date of Service April 19, 2021 Admission HPI Per Admitting Provider This is a 61yo M with a PMH of COPD, ongoing tobacco use and dyslipidemia who presents with worsening shortness of breath over the past week. Feels like his lungs are "filled up" and he cannot get a full breath in. Also endorsing productive cough with brownish sputum and decreased appetite. Denies any fever or chills. No pleuritic chest pain or hemoptysis. COPD and known condition. Patient continues to smoke 1 pack/day. States he had pneumonia back in 2018 with a similar presentation. Interested in smoking cessation. No lightheadedness, headache, chest pain, vomiting, abdominal pain, dysuria, diarrhea or constipation. In the process of setting up more routine pulmonology care with PCP. Admission Exam Per Admitting Provider General Appearance: WD/WN, vitals as above, NAD, sitting up in bed, pleasant, conversing easily Head: normocephalic, atraumatic Eyes: normal inspection, PERRL, conjunctivae normal, anicteric sclerae ENT: external ear and nose normal, oropharynx normal Neck: normal visual inspection, trachea midline, no thyromegaly Respiratory: increased respiratory effort, coarse lung sounds throughout with scattered wheezing. No rales or rhonchi. No accessory muscle use Cardiovascular: regular rate, rhythm, no murmur, normal peripheral pulses, no BLE edema. Vessels: no JVD Chest: normal inspection of chest Abdomen/GI: normal bowel sounds, soft, nontender, no hepatosplenomegaly Extremities/Musculoskeletal: no cyanosis or clubbing, extremities motor strength 5/5 Neurologic: PERRL, EOMI, accommodation nl, no face palsy, no dysarthria, CN's II-XI intact bilaterally and moves all extremities Psychiatric: A+Ox3, euthymic affect Skin: no rashes, normal color, warm/dry Principal Diagnosis Acute respiratory failure with hypoxia Multifocal pneumonia COPD exacerbation Discharge Exam General Appearance: WD/WN, vitals as above, NAD, sitting up in bed on RA Head: normocephalic, atraumatic Eyes: normal inspection, PERRL, EOMI, conjunctivae normal, anicteric sclerae ENT: external ear and nose normal, oropharynx normal Neck: normal visual inspection, trachea midline, no thyromegaly Respiratory: No accessory muscle use, normal respiratory effort, CTAB, no rhonchi, crackles, no wheezing (much improved) Cardiovascular: RRR no murmur, normal peripheral pulses, no BLE edema. Vessels: no JVD Chest: normal inspection of chest Abdomen/GI: normal bowel sounds, soft, nontender Extremities/Musculoskeletal: Moves extremities Skin: no rashes, normal color, warm/dry Neurologic: PERRL, EOMI, no face palsy, speech fluent, answering questions appropriately, moves all extremities Psychiatric: A+Ox3, euthymic affect Discharge Data Allergies Allergy/AdvReac Type Severity Reaction Status Date / Time Sulfa (Sulfonamide Allergy Unknown RASH Verified 04/16/21 16:03 Antibiotics) Consultations 04/16/21 17:40 ED Decision to Admit Routine Hospital Course (1) Acute respiratory failure with hypoxia: 61yo M with COPD, ongoing tobacco use and dyslipidemia who presents with worsening shortness of breath over the past week. Hypoxic at 88% on room air, 92% on 3L NC on admission Not on supplemental O2 at baseline - continue currently on RA Reports that he has oxygen at home from 2018 however does not use any at this time Obtained 2 step before discharge At rest, no need for oxygen however with ambulation needed 6 L. His previous evaluation by RT several years ago, also recommended oxygen with ambulation, at the time 5 L. Will provide prescription for oxygen. (2) COPD exacerbation: Significant smoking history Given 125mg IV solumedrol, albuterol neb in ER Continue IV steroids, duonebs, antibiotics Will discharge on p.o. prednisone (3) Multifocal pneumonia: CXR with airspace opacities at bilateral lower lungs likely represent multifocal pneumonia Afebrile, no leukocytosis, procal wnl Continue azithromycin and Rocephin for CAP Follow-up evaluation with PA and lateral chest radiograph in 4-6 weeks is recommended to document resolution Continue supplemental oxygen as needed, keep O2 sats at 88 to 92% given history of COPD Flutter valve ordered, guaifenesin Sputum culture ordered Gram stain shows rare epithelial cells, many polys, gram-positive cocci and rare gram-positive bacilli Sputum culture currently pin-point growth present, or re-incubating Final cultures pending Will discharge on Levaquin, follow-up with PCP (4) Tobacco use disorder: Discussed importance of smoking cessation - education ordered Nicotine patch provided PCP: Dr. Odonnell Dispo: Plan to DC home Total Time Total Time Spent Total Time Spent (In Minutes): 40 Discharge Plan Discharge Items Patient Disposition: Home - Self-Care Reason For Visit: COPD EXAC, CAP Discharge Diagnosis: Acute respiratory failure with hypoxia Multifocal pneumonia COPD exacerbation Activity: Per Instructions section Non-emergency contact: Primary Care Provider Call non-emergency contact if: you have any medication questions and your symptoms worsen Follow-up/Referrals: Princess Odonnell DO [Outside Practitioners] - (Date & Time 04/26/2021 9:00 AM Provider Pamela Luu MD [facility] ) Diet: Regular Addtl Attending Provider Instructions: Follow-up with primary care doctor, the appointment scheduled for you for April 26. Finish antibiotic course, with Levaquin, as prescribed. Take prednisone for several days as prescribed. Continuing flutter valve and guaifenesin. It is crucial to abstain from smoking, consider calling 1 [facility] smoking cessation line. You will need to use oxygen with ambulation, 6 L/min. Pending Studies at Discharge: Yes Studies:: Final sputum culture Stand-Alone Forms: My [facility] [employer], Smoking Cessation Medications and DC Order Prescriptions: New nicotine 7 mg/24 hr Patch 24 Hour 14 mg transdermal Q24H Qty: 7 RF: 0 guaifenesin [Mucinex] 600 mg Tablet Extended Release 12hr 1,200 mg PO Q12 Qty: 14 RF: 0 prednisone 20 mg tablet 40 mg PO QAM 3 Days Qty: 6 RF: 0 levofloxacin 750 mg tablet 750 mg PO DAILY 4 Days Qty: 4 RF: 0 Continued fluticasone propion-salmeterol [Advair Diskus] 250-50 mcg/dose blister with device 1 inh INHALATION BID RF: 0 atorvastatin 20 mg tablet 20 mg PO DAILY RF: 0 albuterol sulfate 90 mcg/actuation HFA aerosol inhaler 2 puff INHALATION Q4 PRN (Reason: Wheezing) RF: 0 multivitamin Tablet 1 tab PO DAILY RF: 0 Discharge Orders: Discharge Order (Routine); Ordered 04/19/21 Ordered By: Koby Nguyen/Other Patient Handouts: A1C Admission Data Admit Date/Time: 04/16/21 17:57 Attending Provider: Koby Young Admit Provider: Tommy Sorenson Primary Care Provider: PCP,NO Other Providers: Tommy Sorenson
== END 2021-04-19 16:00 | disposition home or self-care (01) | DRG 193 ==
LOC: ED 14:49 → SUATTDRO 17:57 → 2S 17:57 → 2N 04-18 23:10
DX: Z88.2 Allergy status to sulfonamides; J44.1 Chronic obstructive pulmonary disease with (acute) exacerbation; J96.01 Acute respiratory failure with hypoxia; J18.9 Pneumonia, unspecified organism; F17.210 Nicotine dependence, cigarettes, uncomplicated

== ENCOUNTER 2023-01-23 12:05 | Inpatient (IN) ==
[2023-01-23] MEDS ORDERED: ALBUT/IPRATROP 3MG/0.5MG NEB 3 ML VIAL INH STA (12:17)
--- NOTE | 2023-01-23 12:19 | Emergency Department Note ---
Impression & Plan Acute respiratory failure with hypoxia, COPD exacerbation, Tobacco use disorder, Multifocal pneumonia ED Provider Note Provider: Beau Wagner MD DATE OF SERVICE: 01/23/2023 CHIEF COMPLAINT: Shortness of breath HISTORY OF PRESENT ILLNESS: Patient is a 62-year-old gentleman history of COPD p resenting via ambulance from the [facility] in [place] today. Patient evidently states he has been sick with Thursday initially with cough and some shortness of breath. States has now developed a bit of brownish sputum with a cough and feeling more short of breath. States his throat feels little bit dry but denies significant sore throat to me or any chest pain. EMS states he was found to be in the 70s on room air and placed on oxygen. Patient states he occasionally uses oxygen at home but not regularly. States has been using his nebulizer at home. Denies recent leg swelling. States friend was recently ill with a cold. EMS gave the patient a DuoNeb, oxygen support, and 125 mg of IV Solu-Medrol around the patient states he had some improvement of his breathing symptoms. He denies any significant confusion at this time. PAST MEDICAL HISTORY: As noted above MEDICATIONS: Reviewed home medications SOCIAL HISTORY: Smoker PHYSICAL EXAM: GENERAL: alert and oriented seated upright on stretcher staff at bedside nonrebreather Head: normocephalic and atraumatic EYES: No injection, discharge or icterus. NECK: Trachea midline. ENT: Mucous membranes pink and moist. LUNGS: Airway patent. No retractions but some tachypnea and increased work of breathing noted. Breath sounds with right greater than left expiratory wheeze. HEART: Regular tachycardia rate and rhythm. No chest wall tenderness ABDOMEN: Soft and non-tender, without guarding or rebound. SKIN: Acyanotic, warm, dry, without rashes EXTREMITIES: Without swelling, tenderness or deformity NEUROLOGICAL: No focal deficits. No aphasia. No facial droop or slurred speech. EK bpm normal sinus rhythm. No PVC or PAC. No acute ST segment elevation or depression with a QTc of 432. CONTINUOUS CARDIAC MONITORING: was ordered and showed a heart rate of 80s-110s bpm in normal sinus rhythm to sinus tachycardia Patient's laboratory studies and imaging reviewed. Differential includes Reactive airway disease, pneumonia, pneumothorax, COPD, CHF, infections, cardiac ischemia, pulmonary embolism, musculoskeletal, gastrointestinal, as well as other pathologies. IMPRESSION/MEDICAL DECISION MAKING: Patient without pain but significant hypoxia even on nonrebreather. Placed on BiPAP. Received 125 mg IV Solu-Medrol prior to arrival. Given additional DuoNeb here. Question COPD exacerbation versus pneumonia. Low suspicion for ACS or dissection given his lack of significant pain symptoms reported. No significant swelling and doubt CHF. Does not appear encephalopathic at this time but a VBG was ordered. COVID flu RSV testing ordered. Patient much improved on BiPAP therapy are more comfortable and less tachypneic and no longer hypoxic. Blood work without significant anemia or leukocytosis. V BG without hypercarbia. No severe electrolyte abnormality. Troponin within normal limits and doubt cardiac etiology. Chest x-ray with findings of mildly focal airspace opacities could represent pneumonia. Blood work slightly indicated for this but given his use of BiPAP and his respiratory status will cover with cefepime and doxycycline. Discussed with the hospitalist for further care here at the hospital. DIAGNOSIS: Acute hypoxic respiratory failure, acute severe COPD exacerbation, tobacco use, multifocal pneumonia DISPOSITION: Hospitalist team will evaluate Patient was agreeable with this plan. Critical Care I have personally spent 33 minutes of critical care time in the direct management of this patient. This includes bedside care, interpretation of d iagnostic studies, and testing, discussion with consultants, patient, and other required patient management activities. These 33 minutes is in excess of all separately billable procedures. Past Med/Surg History Medical History (Updated 01/23/23 @ 13:40 by Beau Wagner M.D.) COPD, severe Tobacco use disorder Surgical History H/O inguinal hernia repair History of appendectomy Family History (Updated 04/16/21 @ 18:12 by Lexi Rolle PA-C) Father Myocardial infarction Other Diabetes Social History (Updated 04/16/21 @ 19:06 by Lexi Rolle PA-C) Smoking Status: Current every day smoker Tobacco Type: Cigarettes packs per day: 1; Cigarettes Per Day: 20-40; Second Hand Exposure: No; Do You Dip or Chew Tobacco: No; Hx Alcohol Use: No Hx Substance Use: No Preferred Language: Latvian Communication Ability: Effective 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 Beliefs That Will Affect Care: None Current Living Situation: Spouse Feels Safe at Home: Yes Assistive Devices: None Allergies Allergies Allergy/AdvReac Type Severity Reaction Status Date / Time Sulfa (Sulfonamide Allergy Unknown RASH Verified 01/23/23 15:14 Antibiotics) Home Meds Home Medications Medication Instructions Recorded Confirmed albuterol sulfate 90 mcg/actuation 2 puff inhalation Q4 PRN Wheezing 04/16/21 01/23/23 aerosol inhaler fluticasone 250 mcg-salmeterol 50 1 inh inhalation BID 04/16/21 01/23/23 mcg/dose blistr powdr for inhalation (Advair Diskus) multivitamin 1 tab PO DAILY 04/16/21 01/23/23 fluticasone fur. 200 mcg-umeclid 1 inh inhalation QAM 01/23/23 01/23/23 62.5 mcg-vilant 25 mcg inhalat.powder (Trelegy Ellipta) Previous Rx's Medication Instructions Recorded nicotine 14 mg/24 hr daily 1 patch transdermal DAILY #7 ea 04/19/21 transdermal patch Results & Data (ED) Vital Signs Vital Signs - 24 hr 01/23/23 12:10 01/23/23 12:17 01/23/23 12:26 Temperature 36.6 C Temperature Source Oral Pulse Rate 98 H 94 H Pulse Rate [Left Finger] Pulse Rate [Right Apical] Respiratory Rate 26 H Respiratory Effort / Characteristics Non-Labored Spontaneous Respiratory Depth Normal Respiratory Pattern Blood Pressure 96/76 L Blood Pressure [Right Arm] Blood Pressure Mean 82 Blood Pressure Mean [Right Arm] Pulse Oximetry 86 L 86 L Oxygen Delivery Method Non-rebreather BiPAP Oxygen Flow Rate 10 10 Fraction of Inspired Oxygen Sepsis Recent Fever Within 48 Hours No Sepsis New/Unexplained Change in Mental Status No Sepsis Action Taken by Nursing Physician Notified Pulse Oximetry Post Tiitration 93 01/23/23 12:33 01/23/23 12:36 01/23/23 12:38 Temperature Temperature Source Pulse Rate 93 H Pulse Rate [Left Finger] 89 Pulse Rate [Right Apical] 90 Respiratory Rate 25 H 25 H Respiratory Effort / Characteristics Non-Labored Spontaneous Non-Labored Spontaneous Respiratory Depth Normal Respiratory Pattern Regular Blood Pressure Blood Pressure [Right Arm] 118/82 Blood Pressure Mean Blood Pressure Mean [Right Arm] 94 Pulse Oximetry 94 95 91 Oxygen Delivery Method BiPAP BiPAP BiPAP Oxygen Flow Rate Fraction of Inspired Oxygen 80 Sepsis Recent Fever Within 48 Hours Sepsis New/Unexplained Change in Mental Status Sepsis Action Taken by Nursing Pulse Oximetry Post Tiitration 01/23/23 12:40 01/23/23 15:54 01/23/23 16:18 Temperature Temperature Source Pulse Rate 91 H 83 81 Pulse Rate [Left Finger] Pulse Rate [Right Apical] Respiratory Rate 24 20 Respiratory Effort / Characteristics Spontaneous Spontaneous Respiratory Depth Respiratory Pattern Regular Regular Blood Pressure Blood Pressure [Right Arm] Blood Pressure Mean Blood Pressure Mean [Right Arm] Pulse Oximetry 90 90 Oxygen Delivery Method Oxygen Flow Rate Fraction of Inspired Oxygen 80 70 Sepsis Recent Fever Within 48 Hours Sepsis New/Unexplained Change in Mental Status Sepsis Action Taken by Nursing Pulse Oximetry Post Tiitration Laboratory Data 01/23/23 12:15 01/23/23 12:15 Lab Results 01/23/23 01/23/23 01/23/23 Range/Units 12:15 12:15 12:15 WBC 8.11 (4.8-10.8) K/ul RBC 5.48 (4.70-6.10) M/uL Hgb 16.9 (14.0-18.0) g/dl Hct 48.2 (42.0-52.0) % MCV 88.0 (80.0-100.0) fL MCH 30.8 (25.0-34.0) pg MCHC 35.1 (32.0-36.0) g/dL RDW Std Deviation 41.2 (36.4-46.3) fL RDW Coeff of Jeff 12.8 (11.5-14.5) % Plt Count 197 (130-400) K/uL MPV 10.0 (9.4-12.4) fL Immature Gran % (Auto) 2.1 % Neut % (Auto) 79.3 % Lymph % (Auto) 11.5 % Thayer % (Auto) 6.9 % Eos % (Auto) 0.1 % Baso % (Auto) 0.1 % Neut # (Auto) 6.43 (1.40-6.50) K/uL Lymph # (Auto) 0.93 L (1.2-3.4) K/uL Thayer # (Auto) 0.56 (0.11-0.59) K/uL Eos # (Auto) 0.01 (0-0.50) K/uL Baso # (Auto) 0.01 (0-0.2) K/uL Immature Gran # (Auto) 0.17 (0.01-0.20) K/uL Absolute Nucleated RBC 0.02 (0-0.12) K/uL Nucleated RBC % (auto) 0.2 % PT 12.2 H (9.0-12.0) Seconds INR 1.1 (0.9-1.1) VBG pH (7.36-7.41) VBG pCO2 (38-50) mmHg VBG pO2 mmHg VBG HCO3 mmol/L VBG O2 Saturation % VBG Base Excess mEq/L Sodium 137 (136-145) mmol/L Potassium TNP Chloride 97 L (98-107) mmol/L Carbon Dioxide 30 (21-32) mmol/L Anion Gap 10 (3-11) BUN 33 H (6-23) mg/dl Creatinine 0.82 (0.6-1.4) mg/dl Est Cr Clr Drug Dosing 95.2 ml/min Est GFR ( Amer) 109.8 ml/min Est GFR (Non-Af Amer) 94.8 ml/min BUN/Creatinine Ratio 40.2 H (10-20) Glucose 140 H (70-99(Fasting)) mg/dl Lactate (0.4-2.0) mmol/L Calcium 9.9 (8.6-10.3) mg/dl Magnesium 2.4 (1.7-2.4) mg/dl Total Bilirubin 1.8 H (0.2-1.0) mg/dl AST TNP ALT 8 (7-52) U/L Alkaline Phosphatase 26 L (34-104) U/L Troponin I High Sens 5.8 (0-20) pg/ml Total Protein 7.4 (6.0-8.3) gm/dl Albumin 3.3 L (3.4-5.0) gm/dl Globulin 4.1 H (2.5-4.0) gm/dl Albumin/Globulin Ratio 0.8 L (0.9-2) Procalcitonin (0-0.5) ng/ml SARS-CoV-2 (PCR) (Negative) Influenza Type A (PCR) (Neg) Influenza Type B (PCR) (Neg) RSV (RT-PCR) (Neg) 01/23/23 01/23/23 01/23/23 Range/Units 12:35 12:35 14:10 WBC (4.8-10.8) K/ul RBC (4.70-6.10) M/uL Hgb (14.0-18.0) g/dl Hct (42.0-52.0) % MCV (80.0-100.0) fL MCH (25.0-34.0) pg MCHC (32.0-36.0) g/dL RDW Std Deviation (36.4-46.3) fL RDW Coeff of Jeff (11.5-14.5) % Plt Count (130-400) K/uL MPV (9.4-12.4) fL Immature Gran % (Auto) % Neut % (Auto) % Lymph % (Auto) % Thayer % (Auto) % Eos % (Auto) % Baso % (Auto) % Neut # (Auto) (1.40-6.50) K/uL Lymph # (Auto) (1.2-3.4) K/uL Thayer # (Auto) (0.11-0.59) K/uL Eos # (Auto) (0-0.50) K/uL Baso # (Auto) (0-0.2) K/uL Immature Gran # (Auto) (0.01-0.20) K/uL Absolute Nucleated RBC (0-0.12) K/uL Nucleated RBC % (auto) % PT (9.0-12.0) Seconds INR (0.9-1.1) VBG pH 7.44 H (7.36-7.41) VBG pCO2 45 (38-50) mmHg VBG pO2 60 mmHg VBG HCO3 31 mmol/L VBG O2 Saturation 91.7 % VBG Base Excess 5.4 mEq/L Sodium (136-145) mmol/L Potassium 3.5 Chloride (98-107) mmol/L Carbon Dioxide (21-32) mmol/L Anion Gap (3-11) BUN (6-23) mg/dl Creatinine (0.6-1.4) mg/dl Est Cr Clr Drug Dosing ml/min Est GFR ( Amer) ml/min Est GFR (Non-Af Amer) ml/min BUN/Creatinine Ratio (10-20) Glucose (70-99(Fasting)) mg/dl Lactate (0.4-2.0) mmol/L Calcium (8.6-10.3) mg/dl Magnesium (1.7-2.4) mg/dl Total Bilirubin (0.2-1.0) mg/dl AST 12 L ALT (7-52) U/L Alkaline Phosphatase (34-104) U/L Troponin I High Sens (0-20) pg/ml Total Protein (6.0-8.3) gm/dl Albumin (3.4-5.0) gm/dl Globulin (2.5-4.0) gm/dl Albumin/Globulin Ratio (0.9-2) Procalcitonin (0-0.5) ng/ml SARS-CoV-2 (PCR) NEGATIVE (Negative) Influenza Type A (PCR) Negative (Neg) Influenza Type B (PCR) Negative (Neg) RSV (RT-PCR) Negative (Neg) 01/23/23 01/23/23 Range/Units 15:16 15:16 WBC (4.8-10.8) K/ul RBC (4.70-6.10) M/uL Hgb (14.0-18.0) g/dl Hct (42.0-52.0) % MCV (80.0-100.0) fL MCH (25.0-34.0) pg MCHC (32.0-36.0) g/dL RDW Std Deviation (36.4-46.3) fL RDW Coeff of Jeff (11.5-14.5) % Plt Count (130-400) K/uL MPV (9.4-12.4) fL Immature Gran % (Auto) % Neut % (Auto) % Lymph % (Auto) % Thayer % (Auto) % Eos % (Auto) % Baso % (Auto) % Neut # (Auto) (1.40-6.50) K/uL Lymph # (Auto) (1.2-3.4) K/uL Thayer # (Auto) (0.11-0.59) K/uL Eos # (Auto) (0-0.50) K/uL Baso # (Auto) (0-0.2) K/uL Immature Gran # (Auto) (0.01-0.20) K/uL Absolute Nucleated RBC (0-0.12) K/uL Nucleated RBC % (auto) % PT (9.0-12.0) Seconds INR (0.9-1.1) VBG pH (7.36-7.41) VBG pCO2 (38-50) mmHg VBG pO2 mmHg VBG HCO3 mmol/L VBG O2 Saturation % VBG Base Excess mEq/L Sodium (136-145) mmol/L Potassium Chloride (98-107) mmol/L Carbon Dioxide (21-32) mmol/L Anion Gap (3-11) BUN (6-23) mg/dl Creatinine (0.6-1.4) mg/dl Est Cr Clr Drug Dosing ml/min Est GFR ( Amer) ml/min Est GFR (Non-Af Amer) ml/min BUN/Creatinine Ratio (10-20) Glucose (70-99(Fasting)) mg/dl Lactate 2.9 H* (0.4-2.0) mmol/L Calcium (8.6-10.3) mg/dl Magnesium (1.7-2.4) mg/dl Total Bilirubin (0.2-1.0) mg/dl AST ALT (7-52) U/L Alkaline Phosphatase (34-104) U/L Troponin I High Sens (0-20) pg/ml Total Protein (6.0-8.3) gm/dl Albumin (3.4-5.0) gm/dl Globulin (2.5-4.0) gm/dl Albumin/Globulin Ratio (0.9-2) Procalcitonin 1.62 H (0-0.5) ng/ml SARS-CoV-2 (PCR) (Negative) Influenza Type A (PCR) (Neg) Influenza Type B (PCR) (Neg) RSV (RT-PCR) (Neg) Administered Medications Methylprednisolone 40 mg/ (Syringe) 0.64 mls @ 1.5 mls/min IV Q6H CAROLYN Stop: 02/22/23 15:14 Last Admin: 01/23/23 16:13 Dose: 1.5 mls/min Documented By: AMS Discontinued Medications Albuterol (Albut/Ipratrop 3mg/0.5mg Neb 3 Ml Vial) 12 ml INH ONE STA Stop: 01/23/23 12:18 Last Admin: 01/23/23 12:38 Dose: 12 ml Documented By: EAM Doxycycline Hyclate (Doxycycline Hyclate 100 Mg Cap) 100 mg PO NOW STA Stop: 01/23/23 13:27 Last Admin: 01/23/23 13:39 Dose: 100 mg Documented By: BRITTANY Cefepime HCl (Maxipime) 2,000 mg in 20 mls @ 5 mls/min IV NOW STA; Protocol Stop: 01/23/23 13:29 Last Admin: 01/23/23 13:39 Dose: 5 mls/min Documented By: BRITTANY Imaging Data Radiologist's Impression: Chest X-Ray 01/23/23 12:17 XR chest 1V portable CLINICAL HISTORY: Dyspnea TECHNIQUE: Single frontal radiograph of the chest was obtained. Comparison: Comparison is made to chest radiograph 04/16/2021 FINDINGS: No lines and tubes are seen. Cardiomegaly is noted. Multifocal airspace opacities are seen. No evidence of pleural effusion or pneumothorax. IMPRESSION: Multifocal airspace opacities may represent atelectasis, pneumonia, and/or aspiration. ACT 112: Negative or not required by law. Electronically signed by: Cornelius Eisenberg M.D. 01/23/2023 1:05 PM Discharge Plan Visit Data Chief Complaint: Shortness of Breath/Dyspnea Stated Complaint: SHORTNESS OF BREATH ED Provider: Beau Wagner Discharge Problem: Acute respiratory failure with hypoxia, COPD exacerbation, Tobacco use disorder, Multifocal pneumonia Patient Disposition: Being Evaluated by Hospitalist Forms Stand Alone Forms: My [facility] Prescriptions Prescriptions: No Action fluticasone propion-salmeterol [Advair Diskus] 250-50 mcg/dose blister with device 1 inh INHALATION BID albuterol sulfate 90 mcg/actuation HFA aerosol inhaler 2 puff INHALATION Q4 PRN (Reason: Wheezing) multivitamin Tablet 1 tab PO DAILY nicotine 14 mg/24 hr patch 24 hour 1 patch transdermal DAILY Qty: 7 0RF Trelegy Ellipta 200-62.5-25 mcg blister with device 1 inh INHALATION QAM Referrals Referrals: PCP,NO [Physician] -
[2023-01-23 13:03] LABS: Base Excess VBG 5.4 mEq/L; HCO3 VBG 31 mmol/L; Oxygen Saturation VBG 91.7 %; PCO2 VBG 45 mmHg (38-50); PO2 VBG 60 mmHg; pH VBG 7.44 (7.36-7.41)
[2023-01-23 13:05] LABS: INR 1.1 (0.9-1.1); Prothrombin Time 12.2 Seconds (9.0-12.0)
[2023-01-23 13:07] LABS: Basophils # (auto) 0.01 K/uL (0-0.2); Basophils % (auto) 0.1 %; Eosinophils # (auto) 0.01 K/uL (0-0.50); Eosinophils % (auto) 0.1 %; Hematocrit (blood only) 48.2 % (42.0-52.0); Hemoglobin 16.9 g/dl (14.0-18.0); Immature Granulocytes # (auto) 0.17 K/uL (0.01-0.20); Immature Granulocytes % (auto) 2.1 %; Lymphocytes # (auto) 0.93 K/uL (1.2-3.4); Lymphocytes % (auto) 11.5 %; Mean Corpuscular Hemoglobin 30.8 pg (25.0-34.0); Mean Corpuscular Hgb Conc 35.1 g/dL (32.0-36.0); Monocytes # (auto) 0.56 K/uL (0.11-0.59); Monocytes % (auto) 6.9 %; Neutrophils # (auto) 6.43 K/uL (1.40-6.50); Neutrophils % (auto) 79.3 %; Nucleated RBC # (auto) 0.02 K/uL (0-0.12); Nucleated RBC % (auto) 0.2 %; Platelet Count 197 K/uL (130-400); RDW Coefficient of Variation 12.8 % (11.5-14.5); RDW Standard Deviation 41.2 fL (36.4-46.3); Red Blood Count 5.48 M/uL (4.70-6.10); White Blood Count 8.11 K/ul (4.8-10.8)
--- NOTE | 2023-01-23 13:07 | XRay Report ---
XR chest 1V portable CLINICAL HISTORY: Dyspnea TECHNIQUE: Single frontal radiograph of the chest was obtained. Comparison: Comparison is made to chest radiograph 04/16/2021 FINDINGS: No lines and tubes are seen. Cardiomegaly is noted. Multifocal airspace opacities are seen. No eviden ce of pleural effusion or pneumothorax. IMPRESSION: Multifocal airspace opacities may represent atelectasis, pneumonia, and/or aspiration. ACT 112: Negative or not required by law. Electronically signed by: Cornelius Eisenberg M.D. 01/23/2023 1:05 PM
[2023-01-23 13:11] LABS: Alanine Aminotransferase 8 U/L (7-52); Albumin Globulin Ratio 0.8 (0.9-2); Albumin Level 3.3 gm/dl (3.4-5.0); Alkaline Phosphatase 26 U/L (34-104); Anion Gap 10 (3-11); BUN Creatinine Ratio 40.2 (10-20); Bilirubin,Total 1.8 mg/dl (0.2-1.0); Blood Urea Nitrogen 33 mg/dl (6-23); Calcium 9.9 mg/dl (8.6-10.3); Carbon Dioxide 30 mmol/L (21-32); Chloride 97 mmol/L (98-107); Creatinine Clr Calc Pharmacy 95.2 ml/min; Est GFR (African American) 109.8 ml/min; Est GFR (Non-African American) 94.8 ml/min; Globulin 4.1 gm/dl (2.5-4.0); Glucose 140 mg/dl (70-99(Fasting)); Magnesium 2.4 mg/dl (1.7-2.4); Sodium 137 mmol/L (136-145); Total Protein 7.4 gm/dl (6.0-8.3); Troponin I High Sensitivity 5.8 pg/ml (0-20)
[2023-01-23] MEDS ORDERED: CEFEPIME 2,000 MG/20 ML VIAL IV STA (13:26)
[2023-01-23] MEDS ORDERED: DOXYCYCLINE HYCLATE 100 MG CAP PO STA (13:26)
[2023-01-23 13:33] LABS: Influenza A virus by PCR Negative (Neg); Influenza B virus by PCR Negative (Neg); RSV by PCR Negative (Neg); SARS CoV2 RNA(COVID-19) Ceph NEGATIVE (Negative)
--- NOTE | 2023-01-23 14:03 | History & Physical Report ---
Date of Service January 23, 2023 Assessment & Plan (1) Acute respiratory failure with hypoxia: (2) Multifocal pneumonia: Plan: - Admit to med surg with tele - Sputum culture, mucinex, duzenon QID and Q2H prn, chandra harpsin - currently maintaining on bipap - VBG reviewed showing pH 7.44, pCo2 45, pO2 60, HCO3 31 - wean as tolerated, allow breaks, keep off 30 min after consuming a meal - Influenza swab neg, RSV and covid swab negative - WBC at time of admission = 8.11 - BCx x 2, follow, Lactic acid and Procalcitonin pending - CXR reviewed as above showing possible pneumonia - if no improvement can consider CT chest - slightly tach with HR in mid 90s, afebrile - Continue antibiotic therapy with cefepime IV pending procalcitonin - Solu-medrol 40 mg IV Q6H for now with wheezing - nicotine patch ordered - cessation encouraged at bedside - hx of being on antidepressants but pt reports stopped taking these 6 months ago, denies worsening mood, anxiety, depression (3) COPD exacerbation: (4) Tobacco use disorder: Plan: DVT ppx: - teds, scds, lovenox subq CODE: Full code Dispo: From home, likely to remain in the hospital x1-2 days A total of 76 minutes were spent with greater than 50% of that time face to face with the patient, personally reviewing all current laboratories, imaging studies, past medication reconciliation, outpatient chart review, and discussion with specialists to collaborate care for the patient with attending. Please see attending documentation for corrections and/or additions. History of Present Illness Chief Complaint: Shortness of breath Primary Care Provider: Pamela Luu MD This is a 62 yo M with PMhx of COPD, chronic hypoxia, tobacco use disorder, DM II, spinal stenosis, lumbago who presents to the hospital with acute shortenss of breath. His symptoms started on Thursday, where he progressively became more short of breath, cough with brown mucous production, fatigue, poor po intake. He has been intermittently nauseated, but denies any vomiting. Pt reports recently being around a friend last Thursday with similar respiratory symptoms who he actually told should go to the hospital. At home pt does have supplemental o2, he wears 4 L with exertional activities as needed, none at night. He did not use o2 in the past week. Pt has a nebulizer, Trelegy and albuterol rescue inhaler that - but hadn't tried the nebulizer at home for symptoms. Pt sleeps ok, he denies orthopnea. He reports only being able to walk a few steps before needing to stop and catch his breath. Pt smokes 1 ppd routinely and hasn't smoked at all in the past week due to his symptoms. Pt started smoking at age 12. He drinks occasional alcohol. Denies illicit drug use. Allergies Allergy/AdvReac Type Severity Reaction Status Date / Time Sulfa (Sulfonamide Allergy Unknown RASH Verified 01/23/23 15:14 Antibiotics) Home Medications Medication Instructions Recorded Confirmed Type albuterol sulfate 90 mcg/actuation 2 puff inhalation Q4 PRN Wheezing 04/16/21 01/23/23 History aerosol inhaler fluticasone 250 mcg-salmeterol 50 1 inh inhalation BID 04/16/21 01/23/23 History mcg/dose blistr powdr for inhalation (Advair Diskus) multivitamin 1 tab PO DAILY 04/16/21 01/23/23 History nicotine 14 mg/24 hr daily 1 patch transdermal DAILY #7 ea 04/19/21 01/23/23 Rx transdermal patch fluticasone fur. 200 mcg-umeclid 1 inh inhalation QAM 01/23/23 01/23/23 History 62.5 mcg-vilant 25 mcg inhalat.powder (Trelegy Ellipta) Past Med/Surg History Medical History COPD, severe Tobacco use disorder Surgical History H/O inguinal hernia repair History of appendectomy Family History Father Myocardial infarction Other Diabetes Social History Smoking Status: Current every day smoker Tobacco Type: Cigarettes packs per day: 1; Cigarettes Per Day: 20-40; Second Hand Exposure: No; Do You Dip or Chew Tobacco: No; Hx Alcohol Use: No Hx Substance Use: No Preferred Language: Indian Communication Ability: Effective Machine Silver Stripper Required: No Beliefs That Will Affect Care: None Current Living Situation: Spouse Feels Safe at Home: Yes Assistive Devices: None Review of Systems Review of Systems: Constitutional: No fever, sweats or chills, + fatigue Eyes: No diplopia, no worsening or blurred vision ENT: normal hearing, no trouble swallowing Respiratory: As per HPI, + cough, +sputum, + dyspnea on exertion Cardiovascular: No chest pain, tightness or palpitations Abdomen: No pain, nausea, vomiting, diarrhea or constipation Musculoskeletal: No joint pain, calf pain, swelling Neurologic: No weakness, numbness/tingling, or balance problems Psychiatric: No anxiety or depression Skin: No rash or itch Physical Exam Physical Exam: General: awake, alert, no apparent distress, appears much older than stated age Head: Normocephalic, atraumatic ENT: PERRL, EOMI Chest: + Barrel chested, on bipap, + inspiratory and faint expiratory wheezing, not tachypneic, o2 sats at 91% Cardiac: Regular rate and rhythm, no murmur, no JVD, normal peripheral pulses, good capillary refill Abdominal: NABS x 4 quadrants, soft, nondistended, nontender to palpation, no rebound or guarding, + clubbing of fingernails Extremities: Normal inspection, no peripheral edema or erythema, calfs nontender to palpation Psych: Normal mood and affect Neuro: AAO x 3, strength intact bilaterally and rated 5/5, no motor deficits, speech is clear, no peripheral sensory deficits Results & Data Results & Data Vital Signs (Past 12 Hours) Vital Signs Temp Pulse Pulse Pulse Resp BP BP 01/23/23 12:40 91 H 24 01/23/23 12:38 89 25 H 01/23/23 12:36 90 25 H 118/82 01/23/23 12:33 93 H 01/23/23 12:26 01/23/23 12:17 94 H 01/23/23 12:10 36.6 C 98 H 26 H 96/76 L Pulse Ox O2 Del Method O2 Flow Rate FiO2 01/23/23 12:40 90 80 01/23/23 12:38 91 BiPAP 80 01/23/23 12:36 95 BiPAP 01/23/23 12:33 94 BiPAP 01/23/23 12:26 86 L BiPAP 10 01/23/23 12:17 01/23/23 12:10 86 L Non-rebreather 10 Laboratory Results Chest X-Ray 01/23/23 12:17 XR chest 1V portable CLINICAL HISTORY: Dyspnea TECHNIQUE: Single frontal radiograph of the chest was obtained. Comparison: Comparison is made to chest radiograph 04/16/2021 FINDINGS: No lines and tubes are seen. Cardiomegaly is noted. Multifocal airspace opacities are seen. No evidence of pleural effusion or pneumothorax. IMPRESSION: Multifocal airspace opacities may represent atelectasis, pneumonia, and/or aspiration. ACT 112: Negative or not required by law. Electronically signed by: Cornelius Eisenberg M.D. 01/23/2023 1:05 PM Diagnostic Findings 01/23/23 01/23/23 01/23/23 12:35 12:35 12:15 WBC RBC Hgb Hct MCV MCH MCHC RDW Std Deviation RDW Coeff of Jeff Plt Count MPV Immature Gran % (Auto) Neut % (Auto) Lymph % (Auto) [place] % (Auto) Eos % (Auto) Baso % (Auto) Neut # (Auto) Lymph # (Auto) [place] # (Auto) Eos # (Auto) Baso # (Auto) Immature Gran # (Auto) Absolute Nucleated RBC Nucleated RBC % (auto) PT 12.2 H INR 1.1 VBG pH 7.44 H VBG pCO2 45 VBG pO2 60 VBG HCO3 31 VBG O2 Saturation 91.7 VBG Base Excess 5.4 Sodium Potassium Chloride Carbon Dioxide Anion Gap BUN Creatinine Est Cr Clr Drug Dosing Est GFR ( Amer) Est GFR (Non-Af Amer) BUN/Creatinine Ratio Glucose Calcium Magnesium Total Bilirubin AST ALT Alkaline Phosphatase Troponin I High Sens Total Protein Albumin Globulin Albumin/Globulin Ratio SARS-CoV-2 (PCR) NEGATIVE Influenza Type A (PCR) Negative Influenza Type B (PCR) Negative RSV (RT-PCR) Negative 01/23/23 01/23/23 12:15 12:15 WBC 8.11 RBC 5.48 Hgb 16.9 Hct 48.2 MCV 88.0 MCH 30.8 MCHC 35.1 RDW Std Deviation 41.2 RDW Coeff of Jeff 12.8 Plt Count 197 MPV 10.0 Immature Gran % (Auto) 2.1 Neut % (Auto) 79.3 Lymph % (Auto) 11.5 [place] % (Auto) 6.9 Eos % (Auto) 0.1 Baso % (Auto) 0.1 Neut # (Auto) 6.43 Lymph # (Auto) 0.93 L [place] # (Auto) 0.56 Eos # (Auto) 0.01 Baso # (Auto) 0.01 Immature Gran # (Auto) 0.17 Absolute Nucleated RBC 0.02 Nucleated RBC % (auto) 0.2 PT INR VBG pH VBG pCO2 VBG pO2 VBG HCO3 VBG O2 Saturation VBG Base Excess Sodium 137 Potassium TNP Chloride 97 L Carbon Dioxide 30 Anion Gap 10 BUN 33 H Creatinine 0.82 Est Cr Clr Drug Dosing 95.2 Est GFR ( Amer) 109.8 Est GFR (Non-Af Amer) 94.8 BUN/Creatinine Ratio 40.2 H Glucose 140 H Calcium 9.9 Magnesium 2.4 Total Bilirubin 1.8 H AST TNP ALT 8 Alkaline Phosphatase 26 L Troponin I High Sens 5.8 Total Protein 7.4 Albumin 3.3 L Globulin 4.1 H Albumin/Globulin Ratio 0.8 L SARS-CoV-2 (PCR) Influenza Type A (PCR) Influenza Type B (PCR) RSV (RT-PCR) Code Status & VTE Plan Code Status 23-JAN-2023 12:40:51 [facility]-EDSTAT ROUTINE RETRIEVAL Normal sinus rhythm Normal ECG When compared with ECG of 17-APR-2021 05:48, Vent. rate has increased BY 34 BPM 25mm/s10mm/[id number]: 23Referred by: REFERRED SELF Unconfirmed Vent. rate 91 BPM WA interval 150 ms QRS duration 82 ms QT/QTc 352/432 ms Supervising Physician Co-Signing Physician Notes I have seen and examined the patient and have discussed the case with the provider above. I agree with the assessment and plan as stated. The patient is a 62 yo lifelong smoker who continues to smoke despite having COPD requiring 4LPM of oxygen at home with ambulation. He presents with one week of illness and is found to have multifocal pneumonia. He was placed on BIPAP with some improvement and continues on this now. He is set at 14/8 and is pulling 1L tidal volumes. He does not appears to be in respiratory distress or working hard to breathe. He is mentating clearly. No significant wheezes, rales or rhonchi were heard on lung auscultation as compared with that noted above. He is able to speak in full sentences. Physical exam is otherwise unremarkable. CBC ismornal, INR normal, VBG with normal pH and no significant CO2 retention noted, chem panel reveals an elevated BUN to creatinine ratio suggestive of dehydration. Mildly elevated bilirubin noted at 1/8 with AST 12 and ALT 8 and low alk phos. Procal elevated at 1.62. Nasal swab for covid/flu/rsv negative. CXR with multifocal pna. 1. Acute on chronic respiratory failure 2/2 multifocal pneumonia 2. COPD with exacerbation 3. Tobacco smoker 4. Hyperbilirubinemia Continue with BIPAP and transition to hi flow oxygen with continued titration for goal saturation 88-92%. Cont broad spectrum abx pending clinical improvement and culture results. Blood and sputum cultures are pending. Consult pulmonology. Cont with steroids for now. Nebulized bronchodilators scheduled. Continue to encourage smoking cessation efforts. Repeat CMP in am. DO Terry
[2023-01-23 14:46] LABS: Potassium 3.5 mmol/L (3.5-5.1)
--- NOTE | 2023-01-23 15:04 | Electrocardiogram Report ---
Test Reason : Blood Pressure : / mmHG Vent. Rate : 091 BPM Atrial Rate : 091 BPM P-R Int : 150 ms QRS Dur : 082 ms QT Int : 352 ms P-R-T Axes : 070 080 069 degrees QTc Int : 432 ms Normal sinus rhythm Normal ECG When compared with ECG of 17-APR-2021 05:48, Vent. rate has increased BY 34 BPM Confirmed by Artis Pina ([id number]) on 01/23/2023 3:04:23 PM Referred By: REFERRED SELF Confirmed By:Artis Pina
[2023-01-23] MEDS ORDERED: SODIUM CHLORIDE 0.9% 1000ML 1,000 ML IV SCH (16:00)
[2023-01-23] MEDS: methylPREDNISolone 40 MG in SYRINGE 0 ML IV SCH ×2 (16:13→21:27)
[2023-01-23] MEDS ORDERED: CEFEPIME 1,000 MG in SYRINGE 0 ML IV SCH (18:36)
[2023-01-23] MEDS ORDERED: ALBUTEROL HFA 8 GM INHALER INH PRN (18:36)
[2023-01-23] MEDS ORDERED: guaiFENesin/DEXTROM SYRUP 100MG/10MG 5ML UDC PO PRN (18:36)
[2023-01-23] MEDS ORDERED: FLUTICASONE/VILANTEROL 200/25MCG 14 PUFFS/INHALER INH SCH (19:00)
[2023-01-23] MEDS ORDERED: AZITHROMYCIN 500 MG in DEXTROSE 5% 250 ML IV SCH (19:00)
[2023-01-23] MEDS ORDERED: ALBUT/IPRATROP 3MG/0.5MG NEB 3 ML VIAL ONE (19:02)
[2023-01-23] MEDS: ALBUT/IPRATROP 3MG/0.5MG NEB 3 ML VIAL NEB SCH ×2 (19:17→22:20)
[2023-01-23] MEDS: guaiFENesin 600 MG TABCR PO SCH (20:50)
[2023-01-23] MEDS: BENZONATATE 100 MG CAPSULE PO SCH (20:50)
[2023-01-23] MEDS: CEFEPIME 2,000 MG in SYRINGE 0 ML IV SCH (21:27)
[2023-01-24] MEDS: ALBUT/IPRATROP 3MG/0.5MG NEB 3 ML VIAL NEB SCH ×2 (02:06→07:08)
[2023-01-24] MEDS: methylPREDNISolone 40 MG in SYRINGE 0 ML IV SCH ×4 (03:39→21:22)
[2023-01-24 04:01] LABS: Appearance Urine Clear (Clear); Bacteria Urine Automated Negative (Negative); Blood Urine Negative (Negative); Color Urine Dark Yellow; Glucose Urine UA Negative (Negative); Ketones Urine Negative (Negative); Leukocyte Esterase Urine Negative (Negative); Nitrite Urine Negative (Negative); Protein Urine 2+ (Negative); Specific Gravity Urine 1.032 (1.000-1.030); Urobilinogen Urine Positive (Negative); pH Urine 6.5 (4.5-7.5)
[2023-01-24 04:16] LABS: Bilirubin Urine 1+ (Negative)
[2023-01-24] MEDS: CEFEPIME 2,000 MG in SYRINGE 0 ML IV SCH (05:53)
[2023-01-24 07:14] LABS: Hematocrit (blood only) 39.3 % (42.0-52.0); Hemoglobin 13.9 g/dl (14.0-18.0); Mean Corpuscular Hemoglobin 30.8 pg (25.0-34.0); Mean Corpuscular Hgb Conc 35.4 g/dL (32.0-36.0); Mean Corpuscular Volume 87.1 fL (80.0-100.0); Mean Platelet Volume 9.8 fL (9.4-12.4); Nucleated RBC # (auto) 0.04 K/uL (0-0.12); Nucleated RBC % (auto) 0.4 %; Platelet Count 207 K/uL (130-400); RDW Coefficient of Variation 12.7 % (11.5-14.5); RDW Standard Deviation 40.5 fL (36.4-46.3); Red Blood Count 4.51 M/uL (4.70-6.10); White Blood Count 10.02 K/ul (4.8-10.8)
[2023-01-24 07:24] LABS: BUN Creatinine Ratio 42.1 (10-20); Calcium 9.1 mg/dl (8.6-10.3); Creatinine Clr Calc Pharmacy 138.7 ml/min; Est GFR (African American) 127.6 ml/min; Est GFR (Non-African American) 110.1 ml/min; Magnesium 2.3 mg/dl (1.7-2.4); Potassium 3.9 mmol/L (3.5-5.1)
--- NOTE | 2023-01-24 07:39 | Pulmonary Consultation ---
Date of Consultation January 24, 2023 Assessment & Plan (1) Multifocal pneumonia: (2) Acute respiratory failure with hypoxia: (3) COPD, severe: (4) Tobacco use disorder: (5) COPD exacerbation: Plan Impression: 62-year-old male with history of advanced emphysema (PFTs not available) and home oxygen dependence admitted now with progressive hypoxemia and multifocal airspace opacities. His procalcitonin is elevated and clinical history sounds consistent with a lower respiratory infection although other etiologies would be on the differential as well. Recommendations: 1. Hypoxemic respiratory failure: Continue supplemental oxygen titrated to keep saturations 88 to 92%. Suspicion for thromboembolic disease is relatively low given alternative explanation in the patient's chest radiograph so we will hold off on CTA for now. CT scan may provide additional information but will defer until we see how the patient does. If his oxygenation fails to improve, consideration for bronchoscopy with BAL would be appropriate if the patient can tolerate it. Incentive spirometry as tolerated 2. Multifocal pneumonia. Procalcitonin elevated but white count normal and afebrile. Seems reasonable to continue antibiotics for now. Will change azithromycin to oral. No indication for antipseudomonal coverage with cefepime so we will discontinue and replace with Rocephin. Check Legionella urinary antigen. The patient will require follow-up imaging in 2 to 4 weeks to document resolution of the airspace opacities 3. COPD: Patient is currently receiving both Breo and Anoro. We will discontinue the Breo. Continue Anoro. Continue DuoNebs as needed. Do not think he needs an inhaled corticosteroid at this point in time. He is receiving Solu-Medrol currently which will be continued pending improvement in his respiratory status. Outpatient PFTs recommended 5. Tobacco abuse: Patient was counseled regarding importance of smoking cessation. He has been placed on nicotine replacement. Discussed with patient respiratory therapy at bedside. Questions were answered to the best my ability. Thanks for the opportunity to participate in the care of this patient. We will continue to follow with you. Feel free to contact us with questions or concerns History of Present Illness Attending Physician: Haile Hicks MD History of Present Illness Asked by hospitalist service to evaluate this patient with oxygen dependent COPD and acute on chronic hypoxemic respiratory failure with diffuse pulmonary infiltrates. History is obtained from review of the electronic medical record as well as discussion with the patient. The patient is a 62-year-old male with a 13-odge-awdq history of tobacco abuse who continues to smoke at the rate of about a pack per week. He states he has been diagnosed with COPD by his family practice provider. We do not have any of those notes available to review. He thinks he had pulmonary function testing performed back in 2018. He did have a lung cancer screening exam at that time which showed fairly significant emphysematous changes throughout. He has been maintained on Trelegy and as needed albuterol in the outpatient setting. He has oxygen at home which he uses periodically. He does not use it on a daily basis only when he feels he needs it. He does not monitor his pulse oximeter at home. He does not use oxygen at night. The patient reports that he started feeling poorly about 5 days ago. He had a cough which was productive of dark brown phlegm but no hemoptysis. He had significant fatigue. Due to significant respiratory issues he presented to the emergency room. He had a chest x-ray performed showing multifocal airspace opacities was initiated on antibiotics with cefepime. He was initially on noninvasive positive pressure ventilation but has been weaned to high flow nasal cannula with oxygen saturations in the low 90% range. He states he feels better than previous. Patient is retired. 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 He apparently had some exposures to chemicals during that time but he is unable to elucidate which chemicals he was exposed to. He has no pets at home. No other occupational or environmental exposures. No family history of lung disease that he is aware of. Allergies Allergy/AdvReac Type Severity Reaction Status Date / Time Sulfa (Sulfonamide Allergy Unknown RASH Verified 01/23/23 15:14 Antibiotics) Home Medications Medication Instructions Recorded Confirmed Type albuterol sulfate 90 mcg/actuation 2 puff inhalation Q4 PRN Wheezing 04/16/21 01/23/23 History aerosol inhaler fluticasone 250 mcg-salmeterol 50 1 inh inhalation BID 04/16/21 01/23/23 History mcg/dose blistr powdr for inhalation (Advair Diskus) multivitamin 1 tab PO DAILY 04/16/21 01/23/23 History nicotine 14 mg/24 hr daily 1 patch transdermal DAILY #7 ea 04/19/21 01/23/23 Rx transdermal patch fluticasone fur. 200 mcg-umeclid 1 inh inhalation QAM 01/23/23 01/23/23 History 62.5 mcg-vilant 25 mcg inhalat.powder (Trelegy Ellipta) Patient History Medical History COPD, severe Tobacco use disorder Surgical History H/O inguinal hernia repair History of appendectomy Family History Father Myocardial infarction Other Diabetes Social History Smoking Status: Current every day smoker Tobacco Type: Cigarettes packs per day: 1; Cigarettes Per Day: 1; Second Hand Exposure: No; Do You Dip or Chew Tobacco: No; Hx Alcohol Use: Yes Hx Substance Use: No Preferred Language: Ecuadorean Communication Ability: Effective Steward/Stewardess Smoke Room Required: No Beliefs That Will Affect Care: None Current Living Situation: Spouse Current Living Situation Comment: lives at home with Other Information That Helps Us Care for You: Yes (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 No additions or deletions Physical Exam Constitutional: WD/WN, vitals as above Neck: trachea midline, no thyromegaly Respiratory: no respiratory distress, no labored breathing, no cough and not tachypneic Auscultation: + rhonchi and + bronchial breath sounds; no wheezes Cardiovascular: RRR, no murmur, no edema Gastrointestinal (Abdomen): normal bowel sounds, soft, nontender, no hepatosplenomegaly Musculoskeletal: Extremities: extremities normal to inspection Skin: no rashes, warm and dry Neurologic: Nonfocal exam Lymphatic: no cervical lymphadenopathy Results & Data Results & Data Vital Signs (Past 12 Hours) Vital Signs Temp Pulse Pulse Resp BP Pulse Ox O2 Del Method 01/24/23 07:08 66 20 91 High Flow Nasal Cannula 01/23/23 20:00 High Flow Nasal Cannula 01/23/23 20:00 36 C L 79 20 112/71 89 L High Flow Nasal Cannula 01/24/23 04:16 36.8 C 69 20 100/62 94 High Flow Nasal Cannula 01/24/23 02:07 96 High Flow Nasal Cannula 01/24/23 02:06 59 L 17 96 High Flow Nasal Cannula 01/23/23 23:33 76 01/23/23 23:32 36.6 C 80 18 109/75 92 BiPAP, High Flow Nasal Cannula 01/23/23 22:21 78 22 92 High Flow Nasal Cannula 01/23/23 20:54 92 High Flow Nasal Cannula O2 Flow Rate FiO2 01/24/23 07:08 30 100 01/23/23 20:00 01/23/23 20:00 01/24/23 04:16 30 100 01/24/23 02:07 30 100 01/24/23 02:06 30 100 01/23/23 23:33 01/23/23 23:32 30 100 01/23/23 22:21 30 100 01/23/23 20:54 30 100 Critical Care Results & Data Vital Signs (Past 12 Hours) Vital Signs Temp Pulse Pulse Resp BP Pulse Ox O2 Del Method 01/24/23 07:08 66 20 91 High Flow Nasal Cannula 01/23/23 20:00 High Flow Nasal Cannula 01/23/23 20:00 36 C L 79 20 112/71 89 L High Flow Nasal Cannula 01/24/23 04:16 36.8 C 69 20 100/62 94 High Flow Nasal Cannula 01/24/23 02:07 96 High Flow Nasal Cannula 01/24/23 02:06 59 L 17 96 High Flow Nasal Cannula 01/23/23 23:33 76 01/23/23 23:32 36.6 C 80 18 109/75 92 BiPAP, High Flow Nasal Cannula 01/23/23 22:21 78 22 92 High Flow Nasal Cannula 01/23/23 20:54 92 High Flow Nasal Cannula O2 Flow Rate FiO2 01/24/23 07:08 30 100 01/23/23 20:00 01/23/23 20:00 01/24/23 04:16 30 100 01/24/23 02:07 30 100 01/24/23 02:06 30 100 01/23/23 23:33 01/23/23 23:32 30 100 01/23/23 22:21 30 100 01/23/23 20:54 30 100 Lab & Micro Results (Past 24 Hours) RBC 4.51 M/uL (4.70-6.10) L 01/24/23 WBC 10.02 K/ul (4.8-10.8) 01/24/23 Hgb 13.9 g/dl (14.0-18.0) L 01/24/23 Hct 39.3 % (42.0-52.0) L 01/24/23 MCV 87.1 fL (80.0-100.0) 01/24/23 MCH 30.8 pg (25.0-34.0) 01/24/23 MCHC 35.4 g/dL (32.0-36.0) 01/24/23 RDW Standard Deviation 40.5 fL (36.4-46.3) 01/24/23 RDW Coefficient of Variation 12.7 % (11.5-14.5) 01/24/23 Plt Count 207 K/uL (130-400) 01/24/23 MPV 9.8 fL (9.4-12.4) 01/24/23 Nucleated Red Blood Cells % (auto) 0.4 % 01/24 Nucleated RBC Absolute Count (auto) 0.04 K/uL (0-0.12) 12/30 03/22 Neutrophils (%) (Auto) 79.3 % 01/23/23 Lymphocytes (%) (Auto) 11.5 % 01/23/23 Monocytes # (Auto) 0.56 K/uL (0.11-0.59) 01/23/23 Eosinophils # (Auto) 0.01 K/uL (0-0.50) 01/23/23 Immature Granulocyte % (Auto) 2.1 % 01/23/23 Neutrophils # (Auto) 6.43 K/uL (1.40-6.50) 01/23/23 Lymphocytes # (Auto) 0.93 K/uL (1.2-3.4) L 01/23/23 Monocytes # (Auto) 0.56 K/uL (0.11-0.59) 01/23/23 Eosinophils # (Auto) 0.01 K/uL (0-0.50) 01/23/23 Basophils # (Auto) 0.01 K/uL (0-0.2) 01/23/23 Immature Granulocyte # (Auto) 0.17 K/uL (0.01-0.20) 3 Na 136 mmol/L (136-145) 01/24/23 K 3.9 mmol/L (3.5-5.1) 01/24/23 Cl 101 mmol/L (98-107) 01/24/23 CO2 30 mmol/L (21-32) 01/24/23 Anion Gap 5 (3-11) 01/24/23 BUN 24 mg/dl (6-23) H 01/24/23 Creatinine 0.57 mg/dl (0.6-1.4) L 01/24/23 Estimated GFR ( Amer) 127.6 ml/min 01/24/23 Estimated GFR (Non-Af Amer) 110.1 ml/min 01/24/23 BUN/Creatinine Ratio 42.1 (10-20) H 01/24/23 Glu 165 mg/dl (70-99(Fasting)) H 01/24/23 Ca 9.1 mg/dl (8.6-10.3) 01/24/23 Total Bilirubin 1.8 mg/dl (0.2-1.0) H 01/23/23 AST 12 U/L (13-39) L 01/23/23 ALT 8 U/L (7-52) 01/23/23 Alkaline Phosphatase 26 U/L (34-104) L 01/23/23 TP 7.4 gm/dl (6.0-8.3) 01/23/23 Albumin 3.3 gm/dl (3.4-5.0) L 01/23/23 Globulin 4.1 gm/dl (2.5-4.0) H 01/23/23 Albumin/Globulin Ratio 0.8 (0.9-2) L 01/23/23 Mg 2.3 mg/dl (1.7-2.4) 01/24/23 06:29 Calcium Level 9.1 mg/dl (8.6-10.3) 01/24/23 06:29 Prothromb Time International Ratio 1.1 (0.9-1.1) 01/23/23 12:1 5 Venous Blood pH 7.44 (7.36-7.41) H 01/23/23 12:35 Venous Blood Partial Pressure CO2 45 mmHg (38-50) 01/23/23 12:3 5 Venous Blood Partial Pressure O2 60 mmHg 01/23/23 12:35 Venous Blood HCO3 31 mmol/L 01/23/23 12:35 Venous Blood Base Excess 5.4 mEq/L 01/23/23 12:35 Venous Blood Oxygen Saturation 91.7 % 01/23/23 12:35 Diagnostic Findings (Past 24 Hours) Chest X-Ray 01/23/23 12:17 XR chest 1V portable CLINICAL HISTORY: Dyspnea TECHNIQUE: Single frontal radiograph of the chest was obtained. Comparison: Comparison is made to chest radiograph 04/16/2021 FINDINGS: No lines and tubes are seen. Cardiomegaly is noted. Multifocal airspace opacities are seen. No evidence of pleural effusion or pneumothorax. IMPRESSION: Multifocal airspace opacities may represent atelectasis, pneumonia, and/or aspiration. ACT 112: Negative or not required by law. Electronically signed by: Cornelius Eisenberg M.D. 01/23/2023 1:05 PM I & O Totals 24 Hours 01/23/23 01/24/23 01/25/23 06:59 06:59 06:59 Intake Total 1255 / 1255 Balance 1255 / 1255 Cumulative 01/23/23 11:58 thru 01/24/23 03:38 Intake Total 1255 Balance 1255 RT Ventilator Mngmt (Last Documented) Ventilator Ordered Settings Respiratory Rate 20 01/24/23 07:08 Fraction of Inspired Oxygen 100 01/24/23 07:08 Ventilator - PT Measurements Respiratory Rate 20 PG Care Time/CCT Total # of Minutes Spent Total Time Spent with Patient: Total time spent is greater than 50% in coordination of care (as documented) at patient's floor/unit and/or counseling patient: Coding Level of Care Code 40770 IN/OBS CONSULT LVL 4,60M Diagnoses Multifocal pneumonia J18.9 Acute respiratory failure with hypoxia J96.01 COPD, severe J44.9 Tobacco use disorder F17.200 COPD exacerbation J44.1
[2023-01-24] MEDS: cefTRIAXone SODIUM 2,000 MG in DEXTROSE 5% 50 ML IV SCH (08:33)
[2023-01-24] MEDS: ENOXAPARIN INJ 40 MG/0.4 ML SYR SQ SCH (08:36)
[2023-01-24] MEDS: BENZONATATE 100 MG CAPSULE PO SCH ×3 (08:36→21:20)
[2023-01-24] MEDS: guaiFENesin 600 MG TABCR PO SCH ×2 (08:36→21:21)
[2023-01-24] MEDS: MULTIVITAMIN TAB PO SCH (08:36)
[2023-01-24] MEDS: NICOTINE 14 MG/24 HR PATCH TD SCH (08:37)
[2023-01-24] MEDS: UMECLIDINIUM/VILANTEROL 62.5/25MCG 7 PUFFS/INHALER INH SCH (08:41)
[2023-01-24] MEDS ORDERED: AZITHROMYCIN 250 MG TAB PO SCH (09:00)
[2023-01-24] MEDS ORDERED: FLUTICASONE FUROATE 200MCG 14 PUFFS/INHALER INH SCH (09:00)
[2023-01-24] MEDS: ALBUT/IPRATROP 3MG/0.5MG NEB 3 ML VIAL NEB PRN (11:15)
--- NOTE | 2023-01-24 15:15 | Hospitalist Progress Note ---
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 intake/intermittent nausea. He is being managed for the following: (1) Acute respiratory failure with hypoxia: (2) Multifocal pneumonia: (3) COPD exacerbation: Patient presents with acute shortness of breath associated with cough with brown sputum, requires 4 L oxygen with exertional activities at home. 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 Patient started smoking at age 12. Admitting WBC WNL, but Pro-Luis and lactate elevated. Admitting CXR with multifocal airspace opacities. Flu/RSV/COVID swab negative at presentation. Follow-up on the sputum culture and blood culture, continue with Mucinex/Tessalon Perles/DuoNebs/Robitussin Requiring high flow nasal cannula oxygen 30 L, wean down as tolerated. WBC WNL, patient has been afebrile, continue with Solu-Medrol. Continue with nicotine patch. Pulmonology on board, appreciate recommendation. Continue with azithromycin and Rocephin. Follow-up imaging in 4 weeks to document resolution. Outpatient PFT. (4) Tobacco use disorder: Counseled regarding smoking cessation. Continue with nicotine patch DVT ppx: Lovenox subcu CODE: Full code Dispo: From home, likely to remain in the hospital x1-2 days Admission and Anticipated Discharge Date Admission Date: January 23, 2023 Subjective Patient seen and examined at bedside as a follow-up of multifocal pneumonia, COPD exacerbation, acute respiratory failure with hypoxia. Patient was lying in bed, on 30 L high flow nasal cannula oxygen, NAD, reports no new acute event overnight, reports poor appetite, has cough with clear whitish sputum, last bowel movement 2 days ago per patient, otherwise reports feeling better today, denies fever or chills or headache. Physical Exam Physical Exam: GENERAL: Alert and oriented x3. NAD, on 30 L HFNC O2 at 100% FiO2. HEENT: No pallor, no icterus. Pupils equal, round and reactive to light. Oral mucosa moist. NECK: No JVD, no neck masses. HEART: S1 and S2 heard. Regular rate and rhythm. No murmur, no gallop. RESPIRATORY SYSTEM: Normal AP diameter. No accessory muscle use, b/l crackles. +rhonci. ABDOMEN: Soft, bowel sounds present, nontender, no distention. CENTRAL NERVOUS SYSTEM: No facial droop. Speech is clear. Obeys simple commands. Moves extremities. EXTREMITIES: No edema, no erythema seen. Results & Data Results & Data Vital Signs (Past 12 Hours) Vital Signs Temp Pulse Pulse Pulse Resp BP Pulse Ox 01/24/23 12:08 36.4 C L 68 18 108/69 92 01/24/23 11:16 64 18 94 01/24/23 09:52 01/24/23 06:05 52 L 01/24/23 07:10 36.7 C 63 18 99/59 L 93 01/24/23 07:08 66 20 91 01/24/23 04:16 36.8 C 69 20 100/62 94 O2 Del Method O2 Flow Rate FiO2 01/24/23 12:08 High Flow Nasal Cannula 30 34 01/24/23 11:16 High Flow Nasal Cannula 30 100 01/24/23 09:52 High Flow Nasal Cannula 30 01/24/23 06:05 01/24/23 07:10 High Flow Nasal Cannula 30 100 01/24/23 07:08 High Flow Nasal Cannula 30 100 01/24/23 04:16 High Flow Nasal Cannula 30 100
[2023-01-24] MEDS: ACETAMINOPHEN 325 MG TAB PO PRN (23:45)
[2023-01-25] MEDS: methylPREDNISolone 40 MG in SYRINGE 0 ML IV SCH (03:06)
[2023-01-25 07:04] LABS: Hematocrit (blood only) 41.4 % (42.0-52.0); Hemoglobin 14.3 g/dl (14.0-18.0); Mean Corpuscular Hemoglobin 30.8 pg (25.0-34.0); Mean Corpuscular Hgb Conc 34.5 g/dL (32.0-36.0); Mean Corpuscular Volume 89.2 fL (80.0-100.0); Mean Platelet Volume 9.5 fL (9.4-12.4); Nucleated RBC # (auto) 0.03 K/uL (0-0.12); Nucleated RBC % (auto) 0.2 %; Platelet Count 250 K/uL (130-400); RDW Coefficient of Variation 12.9 % (11.5-14.5); RDW Standard Deviation 42.2 fL (36.4-46.3); Red Blood Count 4.64 M/uL (4.70-6.10)
[2023-01-25] MEDS: cefTRIAXone SODIUM 2,000 MG in DEXTROSE 5% 50 ML IV SCH (07:14)
[2023-01-25 07:28] LABS: BUN Creatinine Ratio 44.9 (10-20); Calcium 9.1 mg/dl (8.6-10.3); Creatinine Clr Calc Pharmacy 114.6 ml/min; Est GFR (African American) 117.9 ml/min; Est GFR (Non-African American) 101.7 ml/min; Magnesium 2.3 mg/dl (1.7-2.4); Phosphorus 3.8 mg/dl (2.5-4.9); Potassium 3.9 mmol/L (3.5-5.1)
--- NOTE | 2023-01-25 08:02 | Pulmonology Progress Note ---
Date of Service January 25, 2023 Assessment & Plan (1) Multifocal pneumonia: (2) Acute respiratory failure with hypoxia: (3) COPD, severe: (4) Tobacco use disorder: (5) COPD exacerbation: (6) Pneumococcal pneumonia (streptococcus pneumoniae pneumonia): Plan Impression: 62-year-old male with history of advanced emphysema (PFTs not available) and home oxygen dependence admitted now with progressive hypoxemia and multifocal airspace opacities. Sputum culture positive for Streptococcus pneumoniae Recommendations: 1. Hypoxemic respiratory failure: Continue supplemental oxygen titrated to keep saturations 88 to 92%. Weaning oxygen as tolerated. He has made some improvement over the last 24 hours. Out of bed to chair as tolerated. Incentive spirometry. 2. Pneumococcal pneumonia: Day #3 antibiotics, currently on Rocephin. Continue for now with anticipated 7-day course. Discontinue azithromycin. 3. COPD: Patient does not appear bronchospastic currently. Continue Anoro and as needed albuterol. Transition from parenteral steroids to prednisone 20 mg a day for an additional 2 to 3 days then discontinue. Outpatient PFTs recommended 5. Tobacco abuse: Patient was counseled regarding importance of smoking cessation. He has been placed on nicotine replacement. Discussed with patient respiratory therapy at bedside. Questions were answered to the best my ability. Thanks for the opportunity to participate in the care of this patient. We will continue to follow with you. Feel free to contact us with questions or concerns Admission and Anticipated Discharge Date Admission Date: January 23, 2023 Subjective Patient seen and examined. EMR reviewed. The patient states he feels better. He has had some slight decrease in his oxygen requirement since yesterday. He continues to cough but is not producing any phlegm anymore. No chest pain or palpitations. He is able to eat and drink okay. He feels he is getting stronger. He denies any chest pain or palpitations. He has not noted any swelling. No skin rashes or lesions. Review of Systems Review of Systems: All systems reviewed & are unremarkable except as noted in Subjective Physical Exam Constitutional: WD/WN, vitals as above Neck: trachea midline, no thyromegaly Respiratory: no respiratory distress, no labored breathing, no cough and not tachypneic Auscultation: + rhonchi and + bronchial breath sounds; no wheezes Cardiovascular: RRR, no murmur, no edema Gastrointestinal (Abdomen): normal bowel sounds, soft, nontender, no hepatosplenomegaly Musculoskeletal: Extremities: extremities normal to inspection Skin: no rashes, warm and dry Lymphatic: no cervical lymphadenopathy Results & Data Results & Data Vital Signs (Past 12 Hours) Vital Signs Temp Pulse Pulse Resp BP Pulse Ox O2 Del Method 01/25/23 07:38 High Flow Nasal Cannula 01/25/23 07:41 73 18 90 High Flow Nasal Cannula 01/25/23 06:05 47 L 01/25/23 03:45 54 L 93 High Flow Nasal Cannula 01/25/23 03:10 36.7 C 52 L 16 94 High Flow Nasal Cannula 01/24/23 23:49 70 01/24/23 23:24 36.6 C 78 16 115/72 91 High Flow Nasal Cannula 01/24/23 23:13 78 90 High Flow Nasal Cannula 01/24/23 20:00 High Flow Nasal Cannula O2 Flow Rate FiO2 01/25/23 07:38 30 01/25/23 07:41 30 90 01/25/23 06:05 01/25/23 03:45 30 90 01/25/23 03:10 30 90 01/24/23 23:49 01/24/23 23:24 30 90 01/24/23 23:13 30 90 01/24/23 20:00 30 Laboratory Results 01/25/23 06:19 01/25/23 06:19 Sputum culture with Streptococcus pneumoniae, pansensitive PG Care Time/CCT Total # of Minutes Spent Total Time Spent with Patient: Total time spent is greater than 50% in coordination of care (as documented) at patient's floor/unit and/or counseling patient: Coding Level of Care Code 79784 SUB INP/OBS CARE 2/35MIN Diagnoses Multifocal pneumonia J18.9 Acute respiratory failure with hypoxia J96.01 COPD, severe J44.9 Tobacco use disorder F17.200 COPD exacerbation J44.1 Pneumococcal pneumonia (streptococcus pneumoniae pneumonia) J13
[2023-01-25] MEDS: predniSONE 20 MG TAB PO SCH (09:43)
[2023-01-25] MEDS: ENOXAPARIN INJ 40 MG/0.4 ML SYR SQ SCH (09:43)
[2023-01-25] MEDS: BENZONATATE 100 MG CAPSULE PO SCH ×3 (09:43→20:43)
[2023-01-25] MEDS: NICOTINE 14 MG/24 HR PATCH TD SCH (09:44)
[2023-01-25] MEDS: MULTIVITAMIN TAB PO SCH (09:45)
[2023-01-25] MEDS: guaiFENesin 600 MG TABCR PO SCH ×2 (09:45→20:43)
[2023-01-25] MEDS: UMECLIDINIUM/VILANTEROL 62.5/25MCG 7 PUFFS/INHALER INH SCH (09:46)
[2023-01-25] MEDS ORDERED: POLYETHYLENE (MIRALAX) 17 GM PACK PO PRN (14:38)
--- NOTE | 2023-01-25 14:39 | Hospitalist Progress Note ---
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 intake/intermittent nausea. He is being managed for the following: (1) Acute respiratory failure with hypoxia: (2) Multifocal pneumonia: (3) COPD exacerbation: Patient presents with acute shortness of breath associated with cough with brown sputum, requires 4 L oxygen with exertional activities at home. 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 Patient started smoking at age 12. Admitting WBC WNL, but Pro-Luis and lactate elevated. Admitting CXR with multifocal airspace opacities. Flu/RSV/COVID swab negative at presentation. Follow-up on the sputum culture and blood culture, continue with Mucinex/Tessalon Perles/DuoNebs/Robitussin Requiring high flow nasal cannula oxygen 30 L, wean down as tolerated. c/w incentive spirometer and flutter valve. WBC elevation 2/2 steroid use, patient has been afebrile, continue with Solu- Medrol --> po steroid. Continue with nicotine patch. Pulmonology on board, appreciate recommendation. Continue with Rocephin. Follow-up imaging in 4 weeks to document resolution. Outpatient PFT. (4) Tobacco use disorder: Counseled regarding smoking cessation. Continue with nicotine patch DVT ppx: Lovenox subcu CODE: Full code Dispo: From home, pending improvement in O2 requirement. Admission and Anticipated Discharge Date Admission Date: January 23, 2023 Subjective Patient seen and examined at bedside as a follow-up of multifocal pneumonia, COPD exacerbation, acute respiratory failure with hypoxia. Patient was lying in bed, on 30 L high flow nasal cannula oxygen, NAD, reports no new acute event overnight, reports "so so" appetite, has cough with clear whitish sputum, last bowel movement 3 days ago per patient, reports feeling better today, denies fever or chills or headache.Reports cough getting better, no more sputum production. Physical Exam Physical Exam: GENERAL: Alert and oriented x3. NAD, on 30 L HFNC O2 at 90% FiO2. HEENT: No pallor, no icterus. Pupils equal, round and reactive to light. Oral mucosa moist. NECK: No JVD, no neck masses. HEART: S1 and S2 heard. Regular rate and rhythm. No murmur, no gallop. RESPIRATORY SYSTEM: Normal AP diameter. No accessory muscle use, b/l crackles. +rhonci. ABDOMEN: Soft, bowel sounds present, nontender, no distention. CENTRAL NERVOUS SYSTEM: No facial droop. Speech is clear. Obeys simple comman ds. Moves extremities. EXTREMITIES: No edema, no erythema seen. Results & Data Results & Data Vital Signs (Past 12 Hours) Vital Signs Temp Pulse Pulse Resp BP Pulse Ox Pulse Ox 01/25/23 13:20 92 01/25/23 11:23 36.4 C L 68 18 91 01/25/23 11:18 73 18 92 01/25/23 11:17 90 01/25/23 08:23 36.5 C 63 18 119/78 90 01/25/23 07:38 01/25/23 07:41 73 18 90 01/25/23 06:05 47 L 01/25/23 03:45 54 L 93 01/25/23 03:10 36.7 C 52 L 16 94 Pulse Ox O2 Del Method O2 Flow Rate O2 Flow Rate O2 Flow Rate FiO2 01/25/23 13:20 01/25/23 11:23 High Flow Nasal Cannula 30 34 01/25/23 11:18 High Flow Nasal Cannula 30 90 01/25/23 11:17 89 L 30 30 01/25/23 08:23 High Flow Nasal Cannula 01/25/23 07:38 High Flow Nasal Cannula 30 01/25/23 07:41 High Flow Nasal Cannula 30 90 01/25/23 06:05 01/25/23 03:45 High Flow Nasal Cannula 30 90 01/25/23 03:10 High Flow Nasal Cannula 30 90
[2023-01-25] MEDS: DOCUSATE SODIUM/SENNA 50/8.6MG TAB PO SCH (15:56)
[2023-01-25] MEDS: LORazepam 0.5 MG TAB PO PRN (21:31)
[2023-01-26] MEDS: cefTRIAXone SODIUM 2,000 MG in DEXTROSE 5% 50 ML IV SCH (07:47)
[2023-01-26 07:57] LABS: Hematocrit (blood only) 41.1 % (42.0-52.0); Hemoglobin 14.3 g/dl (14.0-18.0); Mean Corpuscular Hemoglobin 30.8 pg (25.0-34.0); Mean Corpuscular Hgb Conc 34.8 g/dL (32.0-36.0); Mean Corpuscular Volume 88.4 fL (80.0-100.0); Mean Platelet Volume 9.4 fL (9.4-12.4); Platelet Count 255 K/uL (130-400); RDW Coefficient of Variation 12.8 % (11.5-14.5); RDW Standard Deviation 41.4 fL (36.4-46.3); Red Blood Count 4.65 M/uL (4.70-6.10); White Blood Count 16.29 K/ul (4.8-10.8)
[2023-01-26 08:14] LABS: BUN Creatinine Ratio 38.1 (10-20); Calcium 8.6 mg/dl (8.6-10.3); Creatinine Clr Calc Pharmacy 125.5 ml/min; Est GFR (African American) 122.4 ml/min; Est GFR (Non-African American) 105.6 ml/min; Potassium 3.5 mmol/L (3.5-5.1)
--- NOTE | 2023-01-26 08:30 | Pulmonology Progress Note ---
Date of Service January 26, 2023 Assessment & Plan (1) Multifocal pneumonia: (2) Acute respiratory failure with hypoxia: (3) COPD, severe: (4) Tobacco use disorder: (5) COPD exacerbation: (6) Pneumococcal pneumonia (streptococcus pneumoniae pneumonia): Plan Impression: 62-year-old male with history of advanced emphysema (PFTs not available) and home oxygen dependence admitted now with progressive hypoxemia and multifocal airspace opacities. Sputum culture positive for Streptococcus pneumoniae Chest x-ray 01/23/2023 personally reviewed: Portable film, patchy alveolar opacities appreciated bilaterally on the periphery, Bilateral costophrenic angles are clean --Acute hypoxic respiratory failure Secondary to multilobar pneumonia COVID-19 PCR, influenza A/B, RSV all negative Procalcitonin 1.62 --> 0.2 Sputum culture positive for strep pneumonia, pansensitive Continue with O2 supplementation to keep oxygen saturation between 88-92% -- COPD On Trelegy at home -- Current smoker Importance of quitting explained to the patient in depth Plan: In/out: -40 since coming to the hospital Continue with oxygen supplementation to keep O2 saturation between 88-92% Chest x-ray from today does show improvement compared to the time of presentation. Patient still has significant AA gradient. Likely patient has significant emphysema that would be my thought process. I will still order a CTA chest to rule out pulmonary emboli Given the elevated CRP, I will change prednisone to Solu-Medrol. Continue with O2 supplementation to keep O2 saturation between 88-92% Case was discussed with Dr. Hicks Please note the above document was generated using voice recognition software. It may contain grammatical, syntax or spelling errors.Any formal questions or concerns about the content, text or information contained within the body of this dictation should be directly addressed to the provider for clarification. Admission and Anticipated Discharge Date Admission Date: January 23, 2023 Subjective Patient seen and examined at bedside. No acute distress, no adverse events overnight He was saturating 91-92% on 30 L high flow, 80% FiO2 Overall he states that he is feeling little bit better He is coughing bringing up clear phlegm Denies any hemoptysis Occasional chest congestion Has been using incentive spirometry as well as flutter valve Fair appetite Review of Systems Review of Systems: All systems reviewed & are unremarkable except as noted in Subjective Physical Exam Physical Exam: Constitutional: No acute distress HEENT: EOMI, PERRLA Respiratory system: Decreased air entry bilaterally, minimal expiratory wheeze, no rhonchi, positive crackles bilaterally CVS: S1-S2 positive, no murmurs or gallops Abdomen: Soft, nontender, nondistended, positive bowel sounds x4 Extremities: +2 pulses bilaterally radialis/ dorsalis pedis, no cyanosis, no edema Neuro: Awake alert oriented x3 Psych: Normal mood and affect G/U: No Cruz Skin: no rashes, warm and dry (Tattoos appreciated bilaterally especially on the right arm) Lymphatic: no cervical or axillary lymphadenopathy Results & Data Results & Data Vital Signs (Past 12 Hours) Vital Signs Temp Pulse Pulse Pulse Resp BP Pulse Ox 01/26/23 07:11 67 20 90 01/26/23 06:18 90 01/26/23 03:14 90 01/26/23 02:54 36.7 C 74 18 122/69 87 L 01/26/23 02:11 54 L 54 L 16 90 01/25/23 23:57 68 01/25/23 22:45 36.4 C L 68 18 128/80 89 L 01/25/23 22:15 18 88 L O2 Del Method O2 Flow Rate FiO2 01/26/23 07:11 High Flow Nasal Cannula 30 85 01/26/23 06:18 High Flow Nasal Cannula 30 85 01/26/23 03:14 High Flow Nasal Cannula 30 80 01/26/23 02:54 High Flow Nasal Cannula 30 01/26/23 02:11 High Flow Nasal Cannula 30 65 01/25/23 23:57 01/25/23 22:45 High Flow Nasal Cannula 30 01/25/23 22:15 High Flow Nasal Cannula 30 65 Laboratory Results 01/26/23 06:51 01/26/23 06:51 PG Care Time/CCT Total # of Minutes Spent Total Time Spent with Patient: Total time spent is greater than 50% in coordination of care (as documented) at patient's floor/unit and/or counseling patient: Coding Level of Care Code 97225 SUB INP/OBS CARE 3/50MIN Diagnoses Multifocal pneumonia J18.9 Acute respiratory failure with hypoxia J96.01 COPD, severe J44.9 Tobacco use disorder F17.200 COPD exacerbation J44.1 Pneumococcal pneumonia (streptococcus pneumoniae pneumonia) J13
[2023-01-26] MEDS: NICOTINE 14 MG/24 HR PATCH TD SCH (08:57)
[2023-01-26] MEDS: guaiFENesin 600 MG TABCR PO SCH ×2 (08:57→20:40)
[2023-01-26] MEDS: MULTIVITAMIN TAB PO SCH (08:57)
[2023-01-26] MEDS: ENOXAPARIN INJ 40 MG/0.4 ML SYR SQ SCH (08:57)
[2023-01-26] MEDS: predniSONE 20 MG TAB PO SCH (08:57)
[2023-01-26] MEDS: BENZONATATE 100 MG CAPSULE PO SCH ×3 (08:57→20:40)
[2023-01-26] MEDS: UMECLIDINIUM/VILANTEROL 62.5/25MCG 7 PUFFS/INHALER INH SCH (08:58)
[2023-01-26] MEDS: DOCUSATE SODIUM/SENNA 50/8.6MG TAB PO SCH (08:58)
--- NOTE | 2023-01-26 12:17 | XRay Report ---
XR chest 1V portable HISTORY: 62 years-old Male f/u acute shortness of breath COMPARISON: 01/23/2023 chest radiograph, chest CT 10/19/2020. TECHNIQUE: AP view of the chest FINDINGS: Cardiomediastinal and hilar silhouettes are unchanged. Emphysema with chronic interstitial coarsening . Patchy interstitial and alveolar opacities are again noted within a peripheral prominent distributi on, similar to slightly improved from the most recent comparison. Bones appear grossly intact. Mild b lunting of the costophrenic angles. IMPRESSION: 1. Mixed interstitial and alveolar opacities are redemonstrated, similar to mildly improved from 01/23 suggestive of an infectious or inflammatory process. 2. Emphysema. 3. Questioned trace pleural effusions. ACT 112: Negative or not required by law. The above report was generated using voice recognition software. It may contain grammatical, syntax o r spelling errors. Electronically signed by: Vinod Avitia M.D. 01/26/2023 12:15 PM
[2023-01-26] MEDS: ACETAMINOPHEN 325 MG TAB PO PRN (13:57)
--- NOTE | 2023-01-26 16:06 | Hospitalist Progress Note ---
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 intake/intermittent nausea. He is being managed for the following: (1) Acute respiratory failure with hypoxia: (2) Multifocal pneumonia: (3) COPD exacerbation: Patient presents with acute shortness of breath associated with cough with brown sputum, requires 4 L oxygen with exertional activities at home. 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 Patient started smoking at age 12. Admitting WBC WNL, but Pro-Luis and lactate elevated. Admitting CXR with multifocal airspace opacities. Flu/RSV/COVID swab negative at presentation. Follow-up on the sputum culture and blood culture, continue with Mucinex/Tessalon Perles/DuoNebs/Robitussin Requiring high flow nasal cannula oxygen 30 L, wean down as tolerated. c/w incentive spirometer and flutter valve. WBC elevation 2/2 steroid use, patient has been afebrile, continue with Solu- Medrol. Continue with nicotine patch. Pulmonology on board, appreciate recommendation. Plan for CTA chest. Continue with Rocephin. Follow-up imaging in 4 weeks to document resolution. Outpatient PFT. (4) Tobacco use disorder: Counseled regarding smoking cessation. Continue with nicotine patch DVT ppx: Lovenox subcu CODE: Full code Dispo: From home, pending improvement in O2 requirement. Admission and Anticipated Discharge Date Admission Date: January 23, 2023 Subjective Patient seen and examined at bedside as a follow-up of multifocal pneumonia, COPD exacerbation, acute respiratory failure with hypoxia. Patient was lying in bed, on 30 L high flow nasal cannula oxygen, NAD, reports no new acute event overnight, reports improving appetite, has cough with clear whitish sputum, last bowel movement 4 days ago per patient, he is taking bowel regimen now. reports feeling better, denies fever or chills or headache. Asked RN to provide incentive spirometer and taught/checked at bedside to the patient. Physical Exam Physical Exam: GENERAL: Alert and oriented x3. NAD, on 30 L HFNC O2 at 80% FiO2. HEENT: No pallor, no icterus. Pupils equal, round and reactive to light. Oral mucosa moist. NECK: No JVD, no neck masses. HEART: S1 and S2 heard. Regular rate and rhythm. No murmur, no gallop. RESPIRATORY SYSTEM: Normal AP diameter. No accessory muscle use, b/l crackles. +rhonci. ABDOMEN: Soft, bowel sounds present, nontender, no distention. CENTRAL NERVOUS SYSTEM: No facial droop. Speech is clear. Obeys simple commands. Moves extremities. EXTREMITIES: No edema, no erythema seen. Results & Data Results & Data Vital Signs (Past 12 Hours) Vital Signs Temp Pulse Pulse Resp BP Pulse Ox O2 Del Method 01/26/23 15:53 75 01/26/23 15:33 36.7 C 68 14 106/72 91 High Flow Nasal Cannula 01/26/23 14:31 65 18 94 High Flow Nasal Cannula 01/26/23 13:00 High Flow Nasal Cannula 01/26/23 12:33 64 01/26/23 11:50 36.5 C 86 18 118/72 88 L High Flow Nasal Cannula 01/26/23 11:19 78 16 93 High Flow Nasal Cannula 01/26/23 07:11 67 20 90 High Flow Nasal Cannula 01/26/23 06:18 90 High Flow Nasal Cannula O2 Flow Rate FiO2 01/26/23 15:53 01/26/23 15:33 30 65 01/26/23 14:31 30 80 01/26/23 13:00 30 01/26/23 12:33 01/26/23 11:50 30 80 01/26/23 11:19 30 80 01/26/23 07:11 30 85 01/26/23 06:18 30 85
[2023-01-26] MEDS ORDERED: OPTIRAY 320 500ml IV ONE (16:20)
--- NOTE | 2023-01-26 16:51 | CT Scan Report ---
CT angio chest PE protocol CT DOSE: 654.50 mGy.cm HISTORY: 62 years-old Male with PE. Acute shortness of breath TECHNIQUE: Multiple CTA images of the chest were obtained after the intravenous administration of 108 ml Optiray. Coronal and sagittal MIPS were obtained from the axial data set and were submitted for review. All measurements were obtained according to NASCET criteria. A dose lowering technique was u tilized adhering to the principles of ALARA. COMPARISON: Chest radiograph of same day and also 01/23/2023, chest CT 10/19/2020 FINDINGS: CTA: Heart is upper limits of normal in size. Moderate coronary artery calcifications. Atherosclerosis of the thoracic aorta. Aberrant right subclavian artery. No pulmonary emboli identified. CT CHEST: Unremarkable thyroid. Paratracheal lymph nodes measure up to 1.2 cm. Hilar lymph nodes measure up to 1.2 cm on the right. Trace pleural effusions. No pneumothorax. Moderate pulmonary emphysema. Bronchia l wall thickening. Intermixed interstitial opacities are noted with ground glass and alveolar densiti es within a multilobar distribution, most pronounced dependently. Associated tree-in-bud nodules with bronchial wall thickening and mucous plugging. Findings have progressed compared to the study from 2 021. No acute process of the imaged upper abdomen. Unremarkable soft tissues. No acute fracture. IMPRESSION: 1. No pulmonary emboli identified. 2. Emphysema with a chronic infectious or inflammatory bronchiolitis. 3. Multifocal pneumonia with bronchitis and mucous plugging. Three-month follow-up chest CT recommend ed to document resolution 4. Mild mediastinal and hilar lymphadenopathy, likely reactive. 5. Aberrant right subclavian artery. ACT 112: Negative or not required by law. The above report was generated using voice recognition software. It may contain grammatical, syntax o r spelling errors. Electronically signed by: Vinod Avitia M.D. 01/26/2023 4:50 PM
[2023-01-26] MEDS: methylPREDNISolone 40 MG in SYRINGE 0 ML IV SCH (18:58)
[2023-01-26] MEDS: LORazepam 0.5 MG TAB PO PRN (20:40)
[2023-01-27 07:02] LABS: Calcium 8.6 mg/dl (8.6-10.3); Creatinine Clr Calc Pharmacy 125.5 ml/min; Est GFR (African American) 122.4 ml/min; Est GFR (Non-African American) 105.6 ml/min; Magnesium 2.3 mg/dl (1.7-2.4); Potassium 4.3 mmol/L (3.5-5.1)
[2023-01-27] MEDS: DOCUSATE SODIUM/SENNA 50/8.6MG TAB PO SCH (08:31)
[2023-01-27] MEDS: methylPREDNISolone 40 MG in SYRINGE 0 ML IV SCH (08:31)
[2023-01-27] MEDS: cefTRIAXone SODIUM 2,000 MG in DEXTROSE 5% 50 ML IV SCH (08:31)
[2023-01-27] MEDS: BENZONATATE 100 MG CAPSULE PO SCH ×3 (08:31→20:58)
[2023-01-27] MEDS: UMECLIDINIUM/VILANTEROL 62.5/25MCG 7 PUFFS/INHALER INH SCH (08:32)
[2023-01-27] MEDS: guaiFENesin 600 MG TABCR PO SCH ×2 (08:32→20:58)
[2023-01-27] MEDS: NICOTINE 14 MG/24 HR PATCH TD SCH (08:33)
[2023-01-27] MEDS: ENOXAPARIN INJ 40 MG/0.4 ML SYR SQ SCH (08:33)
[2023-01-27] MEDS: MULTIVITAMIN TAB PO SCH (08:40)
--- NOTE | 2023-01-27 09:16 | Pulmonology Progress Note ---
Date of Service January 27, 2023 Assessment & Plan (1) Multifocal pneumonia: (2) Acute respiratory failure with hypoxia: (3) COPD, severe: (4) Tobacco use disorder: (5) COPD exacerbation: (6) Pneumococcal pneumonia (streptococcus pneumoniae pneumonia): Plan Impression: 62-year-old male with history of advanced emphysema (PFTs not available) and home oxygen dependence admitted now with progressive hypoxemia and multifocal airspace opacities. Sputum culture positive for Streptococcus pneumoniae CTA chest 01/26/2023 personally reviewed: Centrilobular emphysema appreciated bilaterally Interlobular thickening as well as consolidative process appreciated in the right middle as well as bilateral lower lobes Minimal mediastinal lymphadenopathy No pulmonary emboli --Acute hypoxic respiratory failure Secondary to multilobar pneumonia COVID-19 PCR, influenza A/B, RSV all negative Procalcitonin 1.62 --> 0.2 Sputum culture positive for strep pneumonia, pansensitive CTA negative for PE 01/26/2023 Continue with O2 supplementation to keep oxygen saturation between 88-92% -- COPD On Trelegy at home -- Current smoker Importance of quitting explained to the patient in depth Plan: In/out: - 410, urine output 1979 Patient does have multilobar pneumonia and centrilobular emphysema but the extent of his hypoxia does not correlate with the infiltrate. I will order 2D echo with bubble study to make sure there is no [id number] shunt. Continue with O2 supplementation to keep O2 saturation between 88-92% Case was discussed with Dr. Hicks Please note the above document was generated using voice recognition software. It may contain grammatical, syntax or spelling errors.Any formal questions or concerns about the content, text or information contained within the body of this dictation should be directly addressed to the provider for clarification. Admission and Anticipated Discharge Date Admission Date: January 23, 2023 Subjective Patient seen and examined at bedside. No acute distress. No adverse events overnight He was saturating 94-95% on 100% FiO2, 35 L. I went down to 90% he was still maintaining 92-93% Overall he states that he is feeling the same. He was not in any respiratory distress. Denies any chest pain, has been using incentive spirometer as well as flutter valve. Denies any nausea or vomiting, fair appetite Review of Systems Review of Systems: All systems reviewed & are unremarkable except as noted in Subjective Physical Exam Physical Exam: Constitutional: No acute distress HEENT: EOMI, PERRLA Respiratory system: Decreased air entry bilaterally, minimal expiratory wheeze, no rhonchi, positive crackles bilaterally CVS: S1-S2 positive, no murmurs or gallops Abdomen: Soft, nontender, nondistended, positive bowel sounds x4 Extremities: +2 pulses bilaterally radialis/ dorsalis pedis, no cyanosis, no edema Neuro: Awake alert oriented x3 Psych: Normal mood and affect G/U: No Cruz Skin: no rashes, warm and dry (Tattoos appreciated bilaterally especially on the right arm) Lymphatic: no cervical or axillary lymphadenopathy Results & Data Results & Data Vital Signs (Past 12 Hours) Vital Signs Temp Pulse Pulse Resp BP Pulse Ox O2 Del Method 01/27/23 07:53 36.6 C 69 18 123/80 90 High Flow Nasal Cannula 01/27/23 07:13 53 L 01/27/23 03:00 36.5 C 67 20 114/70 93 High Flow Nasal Cannula 01/27/23 01:09 66 01/26/23 23:00 36.6 C 65 20 124/82 93 High Flow Nasal Cannula O2 Flow Rate 01/27/23 07:53 30 01/27/23 07:13 01/27/23 03:00 30 01/27/23 01:09 01/26/23 23:00 30 Laboratory Results 01/26/23 06:51 01/27/23 06:07 PG Care Time/CCT Total # of Minutes Spent Total Time Spent with Patient: Total time spent is greater than 50% in coordination of care (as documented) at patient's floor/unit and/or counseling patient: Coding Level of Care Code 97976 SUB INP/OBS CARE 3/50MIN Diagnoses Multifocal pneumonia J18.9 Acute respiratory failure with hypoxia J96.01 COPD, severe J44.9 Tobacco use disorder F17.200 COPD exacerbation J44.1 Pneumococcal pneumonia (streptococcus pneumoniae pneumonia) J13
--- NOTE | 2023-01-27 15:59 | Hospitalist Progress Note ---
Date of Service January 27, 2023 Assessment & Plan (1) Multifocal pneumonia: Plan 62-year-old male with PMH of COPD, chronic hypoxia, tobacco use disorder, DM2, spinal stenosis, tobacco presented to the hospital 01/23 with acute shortness of breath that started 4 days ago [employer], associated with cough with brown mucus production/fatigability/poor p.o. intake/intermittent nausea. He is being managed for the following: (1) Acute respiratory failure with hypoxia: (2) Multifocal pneumonia: (3) COPD exacerbation: Patient presents with acute shortness of breath associated with cough with brown sputum, requires 4 L oxygen with exertional activities at home. Patient smokes 1 PPD routinely but has not smoked at all in the last week [employer] due to his symptoms. Patient started smoking at age 12. Admitting WBC WNL, but Pro-Luis and lactate elevated. Admitting CXR with multifocal airspace opacities. Flu/RSV/COVID swab negative at presentation. 01/26 CTA chest: no pe, has emphysematous changes, s/o multifocal pneumonia w/ bronchitis and mucous plugging. Follow-up on the sputum culture and blood culture, continue with Mucinex/Tessalon Perles/DuoNebs/Robitussin Requiring high flow nasal cannula oxygen 35 L, wean down as tolerated. c/w incentive spirometer and flutter valve. WBC elevation 2/2 steroid use, patient has been afebrile, continue with Solu- Medrol. Continue with nicotine patch. has been smoking since age 12. Pulmonology on board, appreciate recommendation. Continue with Rocephin. Follow-up imaging in 4 weeks to document resolution. Outpatient PFT. (4) Tobacco use disorder: Counseled regarding smoking cessation. Continue with nicotine patch DVT ppx: Lovenox subcu CODE: Full code Dispo: From home, pending improvement in O2 requirement. Admission and Anticipated Discharge Date Admission Date: January 23, 2023 Subjective Patient seen and examined at bedside as a follow-up of multifocal pneumonia, COPD exacerbation, acute respiratory failure with hypoxia. Patient was lying in bed, on 35 L high flow nasal cannula oxygen, NAD, reports no new acute event overnight, reports improving appetite, has cough with clear whitish sputum, last bowel movement 5 days ago per patient, he is taking bowel regimen now; asked RN to provide prn miralax today. reports feeling better, denies fever or chills or headache. Physical Exam Physical Exam: GENERAL: Alert and oriented x3. NAD, on 35 L HFNC O2 at 100% FiO2. HEENT: No pallor, no icterus. Pupils equal, round and reactive to light. Oral mucosa moist. NECK: No JVD, no neck masses. HEART: S1 and S2 heard. Regular rate and rhythm. No murmur, no gallop. RESPIRATORY SYSTEM: Normal AP diameter. No accessory muscle use, b/l crackles. +rhonci. ABDOMEN: Soft, bowel sounds present, nontender, no distention. CENTRAL NERVOUS SYSTEM: No facial droop. Speech is clear. Obeys simple commands. Moves extremities. EXTREMITIES: No edema, no erythema seen. Results & Data Results & Data Vital Signs (Past 12 Hours) Vital Signs Temp Pulse Pulse Resp BP Pulse Ox O2 Del Method 01/27/23 15:39 74 01/27/23 15:14 36.4 C L 69 18 125/75 96 High Flow Nasal Cannula 01/27/23 15:06 66 18 93 High Flow Nasal Cannula 01/27/23 11:08 36.6 C 63 18 121/74 93 High Flow Nasal Cannula 01/27/23 08:45 High Flow Nasal Cannula 01/27/23 07:53 36.6 C 69 18 123/80 90 High Flow Nasal Cannula 01/27/23 07:13 53 L O2 Flow Rate FiO2 01/27/23 15:39 01/27/23 15:14 30 01/27/23 15:06 30 90 01/27/23 11:08 30 01/27/23 08:45 35 01/27/23 07:53 30 01/27/23 07:13
[2023-01-27] MEDS: LORazepam 0.5 MG TAB PO PRN (20:58)
[2023-01-28] MEDS: ALBUT/IPRATROP 3MG/0.5MG NEB 3 ML VIAL NEB PRN ×5 (07:09→23:08)
[2023-01-28] MEDS: UMECLIDINIUM/VILANTEROL 62.5/25MCG 7 PUFFS/INHALER INH SCH (07:40)
[2023-01-28] MEDS: cefTRIAXone SODIUM 2,000 MG in DEXTROSE 5% 50 ML IV SCH (07:40)
[2023-01-28] MEDS: ENOXAPARIN INJ 40 MG/0.4 ML SYR SQ SCH (07:41)
[2023-01-28] MEDS: guaiFENesin 600 MG TABCR PO SCH ×2 (07:41→21:01)
[2023-01-28] MEDS: BENZONATATE 100 MG CAPSULE PO SCH ×3 (07:41→21:01)
[2023-01-28] MEDS: methylPREDNISolone 40 MG in SYRINGE 0 ML IV SCH (07:41)
[2023-01-28] MEDS: MULTIVITAMIN TAB PO SCH (07:41)
[2023-01-28] MEDS: NICOTINE 14 MG/24 HR PATCH TD SCH (07:41)
[2023-01-28 09:03] LABS: Calcium 8.6 mg/dl (8.6-10.3); Potassium 3.7 mmol/L (3.5-5.1)
[2023-01-28 09:09] LABS: BUN Creatinine Ratio 28.4 (10-20); Est GFR (African American) 119.4 ml/min
--- NOTE | 2023-01-28 09:23 | Pulmonology Progress Note ---
Date of Service January 28, 2023 Assessment & Plan (1) Multifocal pneumonia: (2) Acute respiratory failure with hypoxia: (3) COPD, severe: (4) Tobacco use disorder: (5) COPD exacerbation: (6) Pneumococcal pneumonia (streptococcus pneumoniae pneumonia): Plan Impression: 62-year-old male with history of advanced emphysema (PFTs not available) and home oxygen dependence admitted now with progressive hypoxemia and multifocal airspace opacities. Sputum culture positive for Streptococcus pneumoniae CTA chest 01/26/2023 personally reviewed: Centrilobular emphysema appreciated bilaterally Interlobular thickening as well as consolidative process appreciated in the right middle as well as bilateral lower lobes Minimal mediastinal lymphadenopathy No pulmonary emboli --Acute hypoxic respiratory failure Secondary to multilobar pneumonia COVID-19 PCR, influenza A/B, RSV all negative Procalcitonin 1.62 --> 0.2 Sputum culture positive for strep pneumonia, pansensitive CTA negative for PE 01/26/2023 Continue with O2 supplementation to keep oxygen saturation between 88-92% 2D echo 01/27/2023: EF 55-60%, no intracardiac shunt appreciated with contrast, RV normal in size and function -- COPD On Trelegy at home -- Current smoker Importance of quitting explained to the patient in depth Plan: In/out: +1.3 L, urine output 1000 mL, +1 L since coming to the hospital 2D echo 01/27/2023 did not show any intracardiac shunt, interatrial septum is intact. RV systolic function and size is normal Continue with O2 supplementation to keep O2 saturation between 88-92% Case was discussed with RN Case was discussed with Dr. Hicks Please note the above document was generated using voice recognition software. It may contain grammatical, syntax or spelling errors.Any formal questions or concerns about the content, text or information contained within the body of this dictation should be directly addressed to the provider for clarification. Admission and Anticipated Discharge Date Admission Date: January 23, 2023 Subjective Patient seen and examined at bedside. No acute distress, no adverse events overnight. Patient was saturating 92-93% on 30 L high flow, 90%. I went down to 80% Overall he is feeling the same. Denies any chest pain Has been using incentive spirometer as well as flutter valve Fair appetite No headache, blurry vision Denies any significant chest congestion Review of Systems Review of Systems: All systems reviewed & are unremarkable except as noted in Subjective Physical Exam Physical Exam: Constitutional: No acute distress HEENT: EOMI, PERRLA Respiratory system: Decreased air entry bilaterally, no wheeze, no rhonchi, positive crackles bilaterally CVS: S1-S2 positive, no murmurs or gallops Abdomen: Soft, nontender, nondistended, positive bowel sounds x4 Extremities: +2 pulses bilaterally radialis/ dorsalis pedis, no cyanosis, no edema Neuro: Awake alert oriented x3 Psych: Normal mood and affect G/U: No Cruz Skin: no rashes, warm and dry (Tattoos appreciated bilaterally especially on the right arm) Lymphatic: no cervical or axillary lymphadenopathy Results & Data Results & Data Vital Signs (Past 12 Hours) Vital Signs Temp Pulse Pulse Resp BP Pulse Ox O2 Del Method 01/28/23 07:20 36.9 C 57 L 18 111/73 91 High Flow Nasal Cannula 01/28/23 07:09 83 20 91 High Flow Nasal Cannula 01/28/23 03:11 63 20 90 Oxymask 01/28/23 03:00 36.5 C 77 20 110/68 92 High Flow Nasal Cannula 01/28/23 01:06 72 01/27/23 23:59 36.7 C 77 20 119/76 91 Oxymask 01/27/23 22:02 74 19 91 Oxymask O2 Flow Rate FiO2 01/28/23 07:20 30 01/28/23 07:09 30 90 01/28/23 03:11 15 01/28/23 03:00 30 01/28/23 01:06 01/27/23 23:59 15 01/27/23 22:02 12 Laboratory Results 01/26/23 06:51 01/28/23 07:24 PG Care Time/CCT Total # of Minutes Spent Total Time Spent with Patient: Total time spent is greater than 50% in coordination of care (as documented) at patient's floor/unit and/or counseling patient: Coding Level of Care Code 31296 SUB INP/OBS CARE 3/50MIN Diagnoses Multifocal pneumonia J18.9 Acute respiratory failure with hypoxia J96.01 COPD, severe J44.9 Tobacco use disorder F17.200 COPD exacerbation J44.1 Pneumococcal pneumonia (streptococcus pneumoniae pneumonia) J13
--- NOTE | 2023-01-28 15:53 | Hospitalist Progress Note ---
Date of Service January 28, 2023 Assessment & Plan (1) Multifocal pneumonia: Plan 62-year-old male with PMH of COPD, chronic hypoxia, tobacco use disorder, DM2, spinal stenosis, tobacco presented to the hospital 01/23 with acute shortness of breath that started 4 days ago [employer], associated with cough with brown mucus production/fatigability/poor p.o. intake/intermittent nausea. He is being managed for the following: (1) Acute respiratory failure with hypoxia: (2) Multifocal pneumonia: (3) COPD exacerbation: Patient presents with acute shortness of breath associated with cough with brown sputum, requires 4 L oxygen with exertional activities at home. Patient smokes 1 PPD routinely but has not smoked at all in the last week [employer] due to his symptoms. Patient started smoking at age 12. Admitting WBC WNL, but Pro-Luis and lactate elevated. Admitting CXR with multifocal airspace opacities. Flu/RSV/COVID swab negative at presentation. 01/26 CTA chest: no pe, has emphysematous changes, s/o multifocal pneumonia w/ bronchitis and mucous plugging. 01/27 ECHO: EF 55-60%, no intracardiac shunt appreciated with contrast, RV and LV normal in size and function Follow-up on the sputum culture and blood culture, continue with Mucinex/Tessalon Perles/DuoNebs/Robitussin Requiring high flow nasal cannula oxygen 35 L, wean down as tolerated. c/w incentive spirometer and flutter valve. WBC elevation 2/2 steroid use, patient has been afebrile, continue with Solu- Medrol. Continue with nicotine patch. has been smoking since age 12. currently smokes 2 PPD. Pulmonology on board, appreciate recommendation. Continue with Rocephin. Follow-up imaging in 4 weeks to document resolution. Outpatient PFT. (4) Tobacco use disorder: Counseled regarding smoking cessation. Continue with nicotine patch DVT ppx: Lovenox subcu CODE: Full code Dispo: From home, pending improvement in O2 requirement. Admission and Anticipated Discharge Date Admission Date: January 23, 2023 Subjective Patient seen and examined at bedside as a follow-up of multifocal pneumonia, COPD exacerbation, acute respiratory failure with hypoxia. Patient was lying in bed, on 30 L high flow nasal cannula oxygen, NAD, reports no new acute event overnight, reports improving appetite, has cough with clear whitish sputum which has been overall improving, last bowel movement 6 days ago per patient, despite taking bowel regimen now; no belly pain and is moving gas. denies fever or chills or headache. Physical Exam Physical Exam: GENERAL: Alert and oriented x3. NAD, on 30 L HFNC O2 at 90% FiO2. HEENT: No pallor, no icterus. Pupils equal, round and reactive to light. Oral mucosa moist. NECK: No JVD, no neck masses. HEART: S1 and S2 heard. Regular rate and rhythm. No murmur, no gallop. RESPIRATORY SYSTEM: Normal AP diameter. No accessory muscle use, b/l crackles - improving. +rhonci. ABDOMEN: Soft, bowel sounds present, nontender, no distention. CENTRAL NERVOUS SYSTEM: No facial droop. Speech is clear. Obeys simple commands. Moves extremities. EXTREMITIES: No edema, no erythema seen. Results & Data Results & Data Vital Signs (Past 12 Hours) Vital Signs Temp Pulse Resp BP Pulse Ox O2 Del Method O2 Flow Rate 01/28/23 15:29 83 20 97 High Flow Nasal Cannula 30 01/28/23 15:10 36.5 C 81 18 102/68 94 High Flow Nasal Cannula 01/28/23 11:13 37.0 C 81 18 120/71 92 High Flow Nasal Cannula 30 01/28/23 11:06 83 18 91 High Flow Nasal Cannula 30 01/28/23 08:15 High Flow Nasal Cannula 30 01/28/23 07:20 36.9 C 57 L 18 111/73 91 High Flow Nasal Cannula 30 01/28/23 07:09 83 20 91 High Flow Nasal Cannula 30 FiO2 01/28/23 15:29 80 01/28/23 15:10 01/28/23 11:13 01/28/23 11:06 80 01/28/23 08:15 01/28/23 07:20 01/28/23 07:09 90
[2023-01-28] MEDS: ACETAMINOPHEN 325 MG TAB PO PRN (21:01)
[2023-01-28] MEDS: DOCUSATE SODIUM 100 MG CAP PO SCH (21:01)
[2023-01-29] MEDS: ALBUT/IPRATROP 3MG/0.5MG NEB 3 ML VIAL NEB PRN ×3 (02:10→08:41)
--- NOTE | 2023-01-29 07:42 | Pulmonology Progress Note ---
Date of Service January 29, 2023 Assessment & Plan (1) Multifocal pneumonia: (2) Acute respiratory failure with hypoxia: (3) COPD, severe: (4) Tobacco use disorder: (5) COPD exacerbation: (6) Pneumococcal pneumonia (streptococcus pneumoniae pneumonia): Plan Impression: 62-year-old male with history of advanced emphysema (PFTs not available) and home oxygen dependence admitted now with progressive hypoxemia and multifocal airspace opacities. Sputum culture positive for Streptococcus pneumoniae CTA chest 01/26/2023 personally reviewed: Centrilobular emphysema appreciated bilaterally Interlobular thickening as well as consolidative process appreciated in the right middle as well as bilateral lower lobes Minimal mediastinal lymphadenopathy No pulmonary emboli --Acute hypoxic respiratory failure Secondary to multilobar pneumonia COVID-19 PCR, influenza A/B, RSV all negative Procalcitonin 1.62 --> 0.2 Sputum culture positive for strep pneumonia, pansensitive CTA negative for PE 01/26/2023 Continue with O2 supplementation to keep oxygen saturation between 88-92% 2D echo 01/27/2023: EF 55-60%, no intracardiac shunt appreciated with contrast, RV normal in size and function -- COPD On Trelegy at home -- Current smoker Importance of quitting explained to the patient in depth Plan: In/out: -1.2 L, urine output 1950 Continue with O2 supplementation to keep O2 saturation between 88-92% Case was discussed with RN Case was discussed with Dr. Hicks Please note the above document was generated using voice recognition software. It may contain grammatical, syntax or spelling errors.Any formal questions or concerns about the content, text or information contained within the body of this dictation should be directly addressed to the provider for clarification. Admission and Anticipated Discharge Date Admission Date: January 23, 2023 Subjective Patient seen and examined at bedside. No acute distress He was saturating 94% on 13 L oxygen, I went down to 11 L He stated that he is feeling better right now. Has been using incentive spirometer and flutter valve Fair appetite Denies any nausea vomiting No headache, no blurry vision Coughing up clear phlegm Review of Systems Review of Systems: All systems reviewed & are unremarkable except as noted in Subjective Physical Exam Physical Exam: Constitutional: No acute distress HEENT: EOMI, PERRLA Respiratory system: Decreased air entry bilaterally, no wheeze, no rhonchi, positive crackles bilaterally CVS: S1-S2 positive, no murmurs or gallops Abdomen: Soft, nontender, nondistended, positive bowel sounds x4 Extremities: +2 pulses bilaterally radialis/ dorsalis pedis, no cyanosis, no edema Neuro: Awake alert oriented x3 Psych: Normal mood and affect G/U: No Cruz Skin: no rashes, warm and dry (Tattoos appreciated bilaterally especially on the right arm) Lymphatic: no cervical or axillary lymphadenopathy Results & Data Results & Data Vital Signs (Past 12 Hours) Vital Signs Temp Pulse Pulse Resp BP BP Pulse Ox 01/29/23 07:38 36.7 C 81 20 111/75 91 01/29/23 07:26 76 01/29/23 06:55 71 18 89 L 01/29/23 03:18 36.5 C 68 16 102/68 93 01/29/23 02:10 64 19 93 01/29/23 00:28 58 L 01/28/23 23:49 36.5 C 81 18 98/69 L 95 01/28/23 23:09 81 18 91 01/28/23 22:57 63 18 92 01/28/23 21:07 01/28/23 19:59 36.7 C 77 18 121/76 98 O2 Del Method O2 Flow Rate FiO2 01/29/23 07:38 Nasal Cannula, High Flow Nasal Cannula 25 01/29/23 07:26 01/29/23 06:55 High Flow Nasal Cannula 25 60 01/29/23 03:18 High Flow Nasal Cannula 25 60 01/29/23 02:10 High Flow Nasal Cannula 25 60 01/29/23 00:28 01/28/23 23:49 High Flow Nasal Cannula 30 60 01/28/23 23:09 High Flow Nasal Cannula 30 60 01/28/23 22:57 High Flow Nasal Cannula 30 60 01/28/23 21:07 High Flow Nasal Cannula 01/28/23 19:59 Room Air Laboratory Results 01/26/23 06:51 01/28/23 07:24 PG Care Time/CCT Total # of Minutes Spent Total Time Spent with Patient: Total time spent is greater than 50% in coordination of care (as documented) at patient's floor/unit and/or counseling patient: Coding Level of Care Code 38146 SUB INP/OBS CARE 2/35MIN Diagnoses Multifocal pneumonia J18.9 Acute respiratory failure with hypoxia J96.01 COPD, severe J44.9 Tobacco use disorder F17.200 COPD exacerbation J44.1 Pneumococcal pneumonia (streptococcus pneumoniae pneumonia) J13
[2023-01-29] MEDS: cefTRIAXone SODIUM 2,000 MG in DEXTROSE 5% 50 ML IV SCH (07:57)
[2023-01-29] MEDS: BENZONATATE 100 MG CAPSULE PO SCH ×3 (07:58→20:47)
[2023-01-29] MEDS: methylPREDNISolone 40 MG in SYRINGE 0 ML IV SCH (07:58)
[2023-01-29] MEDS: DOCUSATE SODIUM 100 MG CAP PO SCH ×2 (07:58→20:51)
[2023-01-29] MEDS: ENOXAPARIN INJ 40 MG/0.4 ML SYR SQ SCH (07:58)
[2023-01-29] MEDS: POLYETHYLENE (MIRALAX) 17 GM PACK PO SCH ×2 (07:58→08:03)
[2023-01-29] MEDS: MULTIVITAMIN TAB PO SCH (07:59)
[2023-01-29] MEDS: guaiFENesin 600 MG TABCR PO SCH ×2 (07:59→20:47)
[2023-01-29] MEDS: NICOTINE 14 MG/24 HR PATCH TD SCH (07:59)
[2023-01-29] MEDS: UMECLIDINIUM/VILANTEROL 62.5/25MCG 7 PUFFS/INHALER INH SCH (08:00)
[2023-01-29] MEDS: ACETAMINOPHEN 325 MG TAB PO PRN (13:29)
--- NOTE | 2023-01-29 16:06 | Hospitalist Progress Note ---
Date of Service January 29, 2023 Assessment & Plan (1) Multifocal pneumonia: Plan 62-year-old male with PMH of COPD, chronic hypoxia, tobacco use disorder, DM2, spinal stenosis, tobacco presented to the hospital 01/23 with acute shortness of breath that started 4 days ago [employer], associated with cough with brown mucus production/fatigability/poor p.o. intake/intermittent nausea. He is being managed for the following: (1) Acute respiratory failure with hypoxia: (2) Multifocal pneumonia: (3) COPD exacerbation: Patient presents with acute shortness of breath associated with cough with brown sputum, requires 4 L oxygen with exertional activities at home. Patient smokes 1 PPD routinely but has not smoked at all in the last week [employer] due to his symptoms. Patient started smoking at age 12. Admitting WBC WNL, but Pro-Luis and lactate elevated. Admitting CXR with multifocal airspace opacities. Flu/RSV/COVID swab negative at presentation. 01/26 CTA chest: no pe, has emphysematous changes, s/o multifocal pneumonia w/ bronchitis and mucous plugging. 01/27 ECHO: EF 55-60%, no intracardiac shunt appreciated with contrast, RV and LV normal in size and function bl Cx neg, continue with Mucinex/Tessalon Perles/DuoNebs/Robitussin Requiring high flow nasal cannula oxygen 13 L, wean down as tolerated. c/w incentive spirometer and flutter valve. WBC elevation 2/2 steroid use, patient has been afebrile, continue with Solu- Medrol. Continue with nicotine patch. has been smoking since age 12. currently smokes 2 PPD. Pulmonology on board, appreciate recommendation. Continue with Rocephin. Follow-up imaging in 4 weeks to document resolution. Outpatient PFT. (4) Tobacco use disorder: Counseled regarding smoking cessation. Continue with nicotine patch, pt is contemplating but not yet determined if he wants to quit smoking. DVT ppx: Lovenox subcu CODE: Full code Dispo: From home, pending improvement in O2 requirement. PT/OT , cm to assist [facility] dc plan. Admission and Anticipated Discharge Date Admission Date: January 23, 2023 Subjective Patient seen and examined at bedside as a follow-up of multifocal pneumonia, COPD exacerbation, acute respiratory failure with hypoxia. Patient was lying in bed, on 13 L high flow nasal cannula oxygen, NAD, reports no new acute event overnight, reports improving appetite, has cough with clear whitish sputum which has been overall improving, reports feeling better, denies fever or chills or headache. Physical Exam Physical Exam: GENERAL: Alert and oriented x3. NAD, on 13 L HFNC O2 HEENT: No pallor, no icterus. Pupils equal, round and reactive to light. Oral mucosa moist. NECK: No JVD, no neck masses. HEART: S1 and S2 heard. Regular rate and rhythm. No murmur, no gallop. RESPIRATORY SYSTEM: Normal AP diameter. No accessory muscle use, b/l crackles - improving. +rhonci. ABDOMEN: Soft, bowel sounds present, nontender, no distention. CENTRAL NERVOUS SYSTEM: No facial droop. Speech is clear. Obeys simple commands. Moves extremities. EXTREMITIES: No edema, no erythema seen. Results & Data Results & Data Vital Signs (Past 12 Hours) Vital Signs Temp Pulse Pulse Resp BP BP Pulse Ox 01/29/23 15:29 36.7 C 72 20 108/62 94 01/29/23 11:57 36.6 C 83 20 101/69 90 01/29/23 08:00 01/29/23 08:42 89 20 90 01/29/23 07:38 36.7 C 81 20 111/75 91 01/29/23 07:26 76 01/29/23 06:55 71 18 89 L O2 Del Method O2 Flow Rate FiO2 01/29/23 15:29 High Flow Nasal Cannula 11 01/29/23 11:57 High Flow Nasal Cannula 13 01/29/23 08:00 High Flow Nasal Cannula, Other 25 60 01/29/23 08:42 High Flow Nasal Cannula 25 60 01/29/23 07:38 Nasal Cannula, High Flow Nasal Cannula 25 01/29/23 07:26 01/29/23 06:55 High Flow Nasal Cannula 25 60
[2023-01-29] MEDS: LORazepam 0.5 MG TAB PO PRN (20:47)
[2023-01-30] MEDS: ACETAMINOPHEN 325 MG TAB PO PRN ×2 (04:48→19:34)
[2023-01-30] MEDS: BENZONATATE 100 MG CAPSULE PO SCH ×3 (08:01→19:35)
[2023-01-30] MEDS: ENOXAPARIN INJ 40 MG/0.4 ML SYR SQ SCH (08:01)
[2023-01-30] MEDS: DOCUSATE SODIUM 100 MG CAP PO SCH ×2 (08:01→20:39)
[2023-01-30] MEDS: methylPREDNISolone 40 MG in SYRINGE 0 ML IV SCH (08:01)
[2023-01-30] MEDS: cefTRIAXone SODIUM 2,000 MG in DEXTROSE 5% 50 ML IV SCH (08:01)
[2023-01-30] MEDS: POLYETHYLENE (MIRALAX) 17 GM PACK PO SCH (08:02)
[2023-01-30] MEDS: MULTIVITAMIN TAB PO SCH (08:02)
[2023-01-30] MEDS: guaiFENesin 600 MG TABCR PO SCH ×2 (08:02→19:35)
[2023-01-30] MEDS: NICOTINE 14 MG/24 HR PATCH TD SCH (08:02)
[2023-01-30] MEDS: UMECLIDINIUM/VILANTEROL 62.5/25MCG 7 PUFFS/INHALER INH SCH (08:02)
--- NOTE | 2023-01-30 09:03 | Pulmonology Progress Note ---
Date of Service January 30, 2023 Assessment & Plan (1) Multifocal pneumonia: (2) Acute respiratory failure with hypoxia: (3) COPD, severe: (4) Tobacco use disorder: (5) COPD exacerbation: (6) Pneumococcal pneumonia (streptococcus pneumoniae pneumonia): Plan Impression: 62-year-old male with history of advanced emphysema (PFTs not available) and home oxygen dependence admitted now with progressive hypoxemia and multifocal airspace opacities. Sputum culture positive for Streptococcus pneumoniae CTA chest 01/26/2023 personally reviewed: Centrilobular emphysema appreciated bilaterally Interlobular thickening as well as consolidative process appreciated in the right middle as well as bilateral lower lobes Minimal mediastinal lymphadenopathy No pulmonary emboli --Acute hypoxic respiratory failure Secondary to multilobar pneumonia COVID-19 PCR, influenza A/B, RSV all negative Procalcitonin 1.62 --> 0.2 Sputum culture positive for strep pneumonia, pansensitive CTA negative for PE 01/26/2023 Continue with O2 supplementation to keep oxygen saturation between 88-92% 2D echo 01/27/2023: EF 55-60%, no intracardiac shunt appreciated with contrast, RV normal in size and function -- COPD On Trelegy at home -- Current smoker Importance of quitting explained to the patient in depth Plan: In/out: -1.6 L, urine output 2800 Gradually wean the oxygen off. Once the patient reaches requirement of 5 L then home oxygen could be set up Other option would be high flow at home. Case management will be involved to help us with his options Continue with O2 supplementation to keep O2 saturation between 88-92% Case was discussed with RN at bedside Case was discussed with Dr. Hicks Please note the above document was generated using voice recognition software. It may contain grammatical, syntax or spelling errors.Any formal questions or concerns about the content, text or information contained within the body of this dictation should be directly addressed to the provider for clarification. Admission and Anticipated Discharge Date Admission Date: January 23, 2023 Subjective Patient seen and examined at bedside. No acute distress, no adverse events overnight He was saturating 95% on 11 L nasal cannula. I gradually went down to 7 L while I was examining him and he was still able to maintain saturation 91-92% Overall he states that he is feeling gradually better. Shortness of breath is still there on minimal exertion Coughing up clear phlegm, no hemoptysis Fair appetite Review of Systems Review of Systems: All systems reviewed & are unremarkable except as noted in Subjective Physical Exam Physical Exam: Constitutional: No acute distress HEENT: EOMI, PERRLA Respiratory system: Decreased air entry bilaterally, no wheeze, no rhonchi, positive crackles bilaterally CVS: S1-S2 positive, no murmurs or gallops Abdomen: Soft, nontender, nondistended, positive bowel sounds x4 Extremities: +2 pulses bilaterally radialis/ dorsalis pedis, no cyanosis, no edema Neuro: Awake alert oriented x3 Psych: Normal mood and affect G/U: No Cruz Skin: no rashes, warm and dry (Tattoos appreciated bilaterally especially on the right arm) Lymphatic: no cervical or axillary lymphadenopathy Results & Data Results & Data Vital Signs (Past 12 Hours) Vital Signs Temp Pulse Pulse Resp BP BP Pulse Ox 01/30/23 08:01 36.3 C L 72 16 106/71 90 01/30/23 07:36 63 01/30/23 03:12 36.7 C 68 18 104/71 93 01/29/23 23:33 67 01/29/23 23:27 36.4 C L 86 20 118/79 92 01/29/23 21:26 O2 Del Method O2 Flow Rate 01/30/23 08:01 High Flow Nasal Cannula 11 01/30/23 07:36 01/30/23 03:12 High Flow Nasal Cannula 11 01/29/23 23:33 01/29/23 23:27 High Flow Nasal Cannula 11 01/29/23 21:26 High Flow Nasal Cannula Laboratory Results 01/26/23 06:51 PG Care Time/CCT Total # of Minutes Spent Total Time Spent with Patient: Total time spent is greater than 50% in coordination of care (as documented) at patient's floor/unit and/or counseling patient: Coding Level of Care Code 47903 SUB INP/OBS CARE 3/50MIN Diagnoses Multifocal pneumonia J18.9 Acute respiratory failure with hypoxia J96.01 COPD, severe J44.9 Tobacco use disorder F17.200 COPD exacerbation J44.1 Pneumococcal pneumonia (streptococcus pneumoniae pneumonia) J13
[2023-01-30 09:06] LABS: BUN Creatinine Ratio 19.7 (10-20); Creatinine Clr Calc Pharmacy 129.6 ml/min; Magnesium 2.2 mg/dl (1.7-2.4); Phosphorus 3.7 mg/dl (2.5-4.9)
--- NOTE | 2023-01-30 14:41 | Hospitalist Progress Note ---
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 intake/intermittent nausea. He is being managed for the following: (1) Acute respiratory failure with hypoxia: (2) Multifocal pneumonia: (3) COPD exacerbation: Patient presents with acute shortness of breath associated with cough with brown sputum, requires 4 L oxygen with exertional activities at home. 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 Patient started smoking at age 12. Admitting WBC WNL, but Pro-Luis and lactate elevated. Admitting CXR with multifocal airspace opacities. Flu/RSV/COVID swab negative at presentation. 01/26 CTA chest: no pe, has emphysematous changes, s/o multifocal pneumonia w/ bronchitis and mucous plugging. 01/27 ECHO: EF 55-60%, no intracardiac shunt appreciated with contrast, RV and LV normal in size and function bl Cx neg, continue with Mucinex/Tessalon Perles/DuoNebs/Robitussin Requiring high flow nasal cannula oxygen 11 L, wean down as tolerated. c/w incentive spirometer and flutter valve. WBC elevation 2/2 steroid use, patient has been afebrile, continue with Solu- Medrol. Continue with nicotine patch. has been smoking since age 12. currently smokes 2 PPD. Pulmonology on board, appreciate recommendation. Continue with Rocephin. Follow-up imaging in 4 weeks to document resolution. Outpatient PFT. (4) Tobacco use disorder: Counseled regarding smoking cessation. Continue with nicotine patch, pt is contemplating but not yet determined if he wants to quit smoking. DVT ppx: Lovenox subcu CODE: Full code Dispo: From home, pending improvement in O2 requirement. PT/OT , cm to assist with dc plan. Admission and Anticipated Discharge Date Admission Date: January 23, 2023 Subjective Patient seen and examined at bedside as a follow-up of multifocal pneumonia, COPD exacerbation, acute respiratory failure with hypoxia. Patient was lying in bed, on 11 L high flow nasal cannula oxygen, NAD, reports no new acute event overnight, reports eating ok and moving bowels ok - last bm yesterday, has cough with clear whitish sputum which has been overall improving, reports feeling better, denies fever or chills or headache. Pt has been very persistent in going home, has been explained that 11-13 L O2 is too high to send home for. 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 c/w pt/ot while inpatient. Physical Exam Physical Exam: GENERAL: Alert and oriented x3. NAD, on 11 L HFNC O2 HEENT: No pallor, no icterus. Pupils equal, round and reactive to light. Oral mucosa moist. NECK: No JVD, no neck masses. HEART: S1 and S2 heard. Regular rate and rhythm. No murmur, no gallop. RESPIRATORY SYSTEM: Normal AP diameter. No accessory muscle use, b/l crackles - improving. +occasional rhonci. b/l decreased breath sounds. ABDOMEN: Soft, bowel sounds present, nontender, no distention. CENTRAL NERVOUS SYSTEM: No facial droop. Speech is clear. Obeys simple commands. Moves extremities. EXTREMITIES: No edema, no erythema seen. Results & Data Results & Data Vital Signs (Past 12 Hours) Vital Signs Temp Pulse Pulse Resp BP BP Pulse Ox 01/30/23 11:48 36.2 C L 47 L 16 117/73 92 01/30/23 08:00 01/30/23 08:01 36.3 C L 72 16 106/71 90 01/30/23 07:36 63 01/30/23 03:12 36.7 C 68 18 104/71 93 O2 Del Method O2 Flow Rate 01/30/23 11:48 High Flow Nasal Cannula 7 01/30/23 08:00 High Flow Nasal Cannula 11 01/30/23 08:01 High Flow Nasal Cannula 11 01/30/23 07:36 01/30/23 03:12 High Flow Nasal Cannula 11
[2023-01-30] MEDS: LORazepam 0.5 MG TAB PO PRN (19:35)
[2023-01-31] MEDS: methylPREDNISolone 40 MG in SYRINGE 0 ML IV SCH (08:25)
[2023-01-31] MEDS: guaiFENesin 600 MG TABCR PO SCH ×2 (08:25→20:22)
[2023-01-31] MEDS: BENZONATATE 100 MG CAPSULE PO SCH ×3 (08:25→20:23)
[2023-01-31] MEDS: NICOTINE 14 MG/24 HR PATCH TD SCH (08:26)
[2023-01-31] MEDS: DOCUSATE SODIUM 100 MG CAP PO SCH ×2 (08:28→20:22)
[2023-01-31] MEDS: ENOXAPARIN INJ 40 MG/0.4 ML SYR SQ SCH (08:28)
[2023-01-31] MEDS: MULTIVITAMIN TAB PO SCH (08:29)
[2023-01-31] MEDS: POLYETHYLENE (MIRALAX) 17 GM PACK PO SCH (08:29)
[2023-01-31] MEDS: UMECLIDINIUM/VILANTEROL 62.5/25MCG 7 PUFFS/INHALER INH SCH (09:14)
[2023-01-31] MEDS ORDERED: SODIUM CHLORIDE 0.65% NA SOLN 45 ML (OCEAN) PRN (10:02)
--- NOTE | 2023-01-31 11:14 | Pulmonology Progress Note ---
Date of Service January 31, 2023 Assessment & Plan (1) Multifocal pneumonia: (2) Acute respiratory failure with hypoxia: (3) COPD, severe: (4) Tobacco use disorder: (5) COPD exacerbation: (6) Pneumococcal pneumonia (streptococcus pneumoniae pneumonia): Plan Impression: 62-year-old male with history of advanced emphysema (PFTs not available) and home oxygen dependence admitted now with progressive hypoxemia and multifocal airspace opacities. Sputum culture positive for Streptococcus pneumoniae CTA chest 01/26/2023 personally reviewed: Centrilobular emphysema appreciated bilaterally Interlobular thickening as well as consolidative process appreciated in the right middle as well as bilateral lower lobes Minimal mediastinal lymphadenopathy No pulmonary emboli --Acute hypoxic respiratory failure Secondary to multilobar pneumonia COVID-19 PCR, influenza A/B, RSV all negative Procalcitonin 1.62 --> 0.2 Sputum culture positive for strep pneumonia, pansensitive CTA negative for PE 01/26/2023 Continue with O2 supplementation to keep oxygen saturation between 88-92% 2D echo 01/27/2023: EF 55-60%, no intracardiac shunt appreciated with contrast, RV normal in size and function -- COPD On Trelegy at home -- Current smoker Importance of quitting explained to the patient in depth Plan: In/out: -1.6 L, urine output 2800 Continue with O2 supplementation to keep O2 saturation between 88-92% Case was discussed with Dr. Hicks Please note the above document was generated using voice recognition software. It may contain grammatical, syntax or spelling errors.Any formal questions or concerns about the content, text or information contained within the body of this dictation should be directly addressed to the provider for clarification. Admission and Anticipated Discharge Date Admission Date: January 23, 2023 Subjective Patient seen and examined at bedside. No acute distress. No episodes overnight Patient had just returned from the bathroom. He was saturating 80% on 7 L nasal cannula. On asking him to take deep breaths through the nose it oxygenation did improve to 90-91% on 7 L Denied any chest pain, no headache, no nausea, no vomiting Does have significant shortness of breath on minimal exertion Review of Systems Review of Systems: All systems reviewed & are unremarkable except as noted in Subjective Physical Exam Physical Exam: Constitutional: No acute distress HEENT: EOMI, PERRLA Respiratory system: Decreased air entry bilaterally, no wheeze, no rhonchi, positive crackles bilaterally CVS: S1-S2 positive, no murmurs or gallops Abdomen: Soft, nontender, nondistended, positive bowel sounds x4 Extremities: +2 pulses bilaterally radialis/ dorsalis pedis, no cyanosis, no edema Neuro: Awake alert oriented x3 Psych: Normal mood and affect G/U: No Cruz Skin: no rashes, warm and dry (Tattoos appreciated bilaterally especially on the right arm) Lymphatic: no cervical or axillary lymphadenopathy Results & Data Results & Data Vital Signs (Past 12 Hours) Vital Signs Temp Pulse Pulse Resp BP Pulse Ox O2 Del Method 01/31/23 08:15 Nasal Cannula 01/31/23 07:54 36.8 C 64 20 105/71 93 Nasal Cannula 01/31/23 07:19 65 01/31/23 02:22 36.4 C L 77 18 110/71 92 Nasal Cannula 01/31/23 00:00 72 O2 Flow Rate 01/31/23 08:15 7 01/31/23 07:54 6 01/31/23 07:19 01/31/23 02:22 6 01/31/23 00:00 Laboratory Results 01/26/23 06:51 01/30/23 07:43 PG Care Time/CCT Total # of Minutes Spent Total Time Spent with Patient: Total time spent is greater than 50% in coordination of care (as documented) at patient's floor/unit and/or counseling patient: Coding Level of Care Code 68562 SUB INP/OBS CARE 2/35MIN Diagnoses Multifocal pneumonia J18.9 Acute respiratory failure with hypoxia J96.01 COPD, severe J44.9 Tobacco use disorder F17.200 COPD exacerbation J44.1 Pneumococcal pneumonia (streptococcus pneumoniae pneumonia) J13
--- NOTE | 2023-01-31 13:01 | Hospitalist Progress Note ---
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 intake/intermittent nausea. He is being managed for the following: (1) Acute respiratory failure with hypoxia: (2) Multifocal pneumonia: (3) COPD exacerbation: Patient presents with acute shortness of breath associated with cough with brown sputum, requires 4 L oxygen with exertional activities at home. 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 Patient started smoking at age 12. Admitting WBC WNL, but Pro-Luis and lactate elevated. Admitting CXR with multifocal airspace opacities. Flu/RSV/COVID swab negative at presentation. 01/26 CTA chest: no pe, has emphysematous changes, s/o multifocal pneumonia w/ bronchitis and mucous plugging. 01/27 ECHO: EF 55-60%, no intracardiac shunt appreciated with contrast, RV and LV normal in size and function bl Cx neg, continue with Mucinex/Tessalon Perles/DuoNebs/Robitussin Requiring high flow nasal cannula oxygen 11 L, wean down as tolerated. c/w incentive spirometer and flutter valve. WBC elevation 2/2 steroid use, patient has been afebrile, continue with Solu- Medrol. Continue with nicotine patch. has been smoking since age 12. currently smokes 2 PPD. Pulmonology on board, appreciate recommendation. Continue with Rocephin. Follow-up imaging in 4 weeks to document resolution. Outpatient PFT. (4) Tobacco use disorder: Counseled regarding smoking cessation. Continue with nicotine patch, pt is contemplating but not yet determined if he wants to quit smoking. DVT ppx: Lovenox subcu CODE: Full code Dispo: From home, pending improvement in O2 requirement. PT/OT , cm to assist with dc plan. Admission and Anticipated Discharge Date Admission Date: January 23, 2023 Subjective Patient seen and examined at bedside as a follow-up of multifocal pneumonia, COPD exacerbation, acute respiratory failure with hypoxia. Patient was lying in bed, on 7 L nasal cannula oxygen, NAD, reports no new acute event overnight, reports eating ok and moving bowels ok, has cough with clear whitish sputum which has been overall improving, reports feeling better, denies fever or chills or headache. Pt reports occasional epistaxis today, likely dry nose 2/2 O2 use; will use saline nasal spray, hold eliquis for 1-2 days until stable. D/w CM who is aware of high O2 need on the day of discharge, likely will get 2 step tomorrow to see how he is doing and possibility of discharge depending on O2 requirement. Per RN, pt desaturates in 70s with minimal Physical Exam Physical Exam: GENERAL: Alert and oriented x3. NAD, on 7L NC O2 HEENT: No pallor, no icterus. Pupils equal, round and reactive to light. Oral mucosa moist. NECK: No JVD, no neck masses. HEART: S1 and S2 heard. Regular rate and rhythm. No murmur, no gallop. RESPIRATORY SYSTEM: Normal AP diameter. No accessory muscle use, b/l crackles - improving. +occasional rhonci has improved. b/l decreased breath sounds. ABDOMEN: Soft, bowel sounds present, nontender, no distention. CENTRAL NERVOUS SYSTEM: No facial droop. Speech is clear. Obeys simple commands. Moves extremities. EXTREMITIES: No edema, no erythema seen. Results & Data Results & Data Vital Signs (Past 12 Hours) Vital Signs Temp Pulse Pulse Resp BP Pulse Ox O2 Del Method 01/31/23 11:41 36.5 C 86 18 107/68 97 Room Air 01/31/23 08:15 Nasal Cannula 01/31/23 07:54 36.8 C 64 20 105/71 93 Nasal Cannula 01/31/23 07:19 65 01/31/23 02:22 36.4 C L 77 18 110/71 92 Nasal Cannula O2 Flow Rate 01/31/23 11:41 01/31/23 08:15 7 01/31/23 07:54 6 01/31/23 07:19 01/31/23 02:22 6
[2023-01-31] MEDS: LORazepam 0.5 MG TAB PO PRN (20:29)
[2023-02-01] MEDS: DOCUSATE SODIUM 100 MG CAP PO SCH (08:37)
[2023-02-01] MEDS: POLYETHYLENE (MIRALAX) 17 GM PACK PO SCH (08:37)
--- NOTE | 2023-02-01 08:45 | Pulmonology Progress Note ---
Date of Service February 01, 2023 Assessment & Plan (1) Multifocal pneumonia: (2) Acute respiratory failure with hypoxia: (3) COPD, severe: (4) Tobacco use disorder: (5) COPD exacerbation: (6) Pneumococcal pneumonia (streptococcus pneumoniae pneumonia): Plan Impression: 62-year-old male with history of advanced emphysema (PFTs not available) and home oxygen dependence admitted now with progressive hypoxemia and multifocal airspace opacities. Sputum culture positive for Streptococcus pneumoniae CTA chest 01/26/2023 personally reviewed: Centrilobular emphysema appreciated bilaterally Interlobular thickening as well as consolidative process appreciated in the right middle as well as bilateral lower lobes Minimal mediastinal lymphadenopathy No pulmonary emboli --Acute hypoxic respiratory failure Secondary to multilobar pneumonia COVID-19 PCR, influenza A/B, RSV all negative Procalcitonin 1.62 --> 0.2 Sputum culture positive for strep pneumonia, pansensitive CTA negative for PE 01/26/2023 Continue with O2 supplementation to keep oxygen saturation between 88-92% 2D echo 01/27/2023: EF 55-60%, no intracardiac shunt appreciated with contrast, RV normal in size and function -- COPD On Trelegy at home -- Current smoker Importance of quitting explained to the patient in depth Patient is willing to quit Plan: In/out: Positive 470 mL, urine output 1250 Patient is willing to quit smoking. He was not able to tolerate Chantix in the past Would recommend Wellbutrin 150 mg 2 times a day. Patient has no history of seizures Continue with Trelegy inhaler at home along with as needed nebulized DuoNebs and albuterol Azithromycin 250 mg Cyexof-Byuezklrb-Xosarm could also be thought of, QTc 432 on 01/23/2023 Continue with O2 supplementation to keep O2 saturation between 88-92% Case was discussed with Dr. Hicks Please note the above document was generated using voice recognition software. It may contain grammatical, syntax or spelling errors.Any formal questions or concerns about the content, text or information contained within the body of this dictation should be directly addressed to the provider for clarification. Admission and Anticipated Discharge Date Admission Date: January 23, 2023 Subjective Patient seen and examined at bedside. No acute distress, no adverse events overnight Patient was saturating 88-89% on 10 L nasal cannula at the time of examination He finished 2 step over he needed 10 L on exertion 5 L at rest. Overall he is feeling the same. Shortness of breath on exertion still persist Coughing up clear phlegm. No chest pain, no dizziness Fair appetite Review of Systems Review of Systems: All systems reviewed & are unremarkable except as noted in Subjective Physical Exam Physical Exam: Constitutional: No acute distress HEENT: EOMI, PERRLA Respiratory system: Decreased air entry bilaterally, no wheeze, no rhonchi, positive crackles bilaterally CVS: S1-S2 positive, no murmurs or gallops Abdomen: Soft, nontender, nondistended, positive bowel sounds x4 Extremities: +2 pulses bilaterally radialis/ dorsalis pedis, no cyanosis, no ant ma Neuro: Awake alert oriented x3 Psych: Normal mood and affect G/U: No Cruz Skin: no rashes, warm and dry (Tattoos appreciated bilaterally especially on the right arm) Lymphatic: no cervical or axillary lymphadenopathy Results & Data Results & Data Vital Signs (Past 12 Hours) Vital Signs Temp Pulse Pulse Resp BP BP Pulse Ox 02/01/23 08:09 36.4 C L 70 18 104/68 90 02/01/23 07:03 61 02/01/23 04:00 36.6 C 78 20 103/66 90 01/31/23 22:01 86 01/31/23 23:00 36.8 C 86 18 113/70 91 01/31/23 20:48 36.8 C 92 H 20 109/71 91 O2 Del Method O2 Flow Rate 02/01/23 08:09 Nasal Cannula 5 02/01/23 07:03 02/01/23 04:00 Nasal Cannula 5 01/31/23 22:01 01/31/23 23:00 Nasal Cannula 3.5 01/31/23 20:48 Nasal Cannula 3 Laboratory Results 01/26/23 06:51 01/30/23 07:43 PG Care Time/CCT Total # of Minutes Spent Total Time Spent with Patient: Total time spent is greater than 50% in coordination of care (as documented) at patient's floor/unit and/or counseling patient: Coding Level of Care Code 30550 SUB INP/OBS CARE 2/35MIN Diagnoses Multifocal pneumonia J18.9 Acute respiratory failure with hypoxia J96.01 COPD, severe J44.9 Tobacco use disorder F17.200 COPD exacerbation J44.1 Pneumococcal pneumonia (streptococcus pneumoniae pneumonia) J13
[2023-02-01] MEDS: BENZONATATE 100 MG CAPSULE PO SCH ×2 (08:59→13:49)
[2023-02-01] MEDS: methylPREDNISolone 40 MG in SYRINGE 0 ML IV SCH (08:59)
[2023-02-01] MEDS: NICOTINE 14 MG/24 HR PATCH TD SCH (09:00)
[2023-02-01] MEDS: UMECLIDINIUM/VILANTEROL 62.5/25MCG 7 PUFFS/INHALER INH SCH (09:00)
[2023-02-01] MEDS: MULTIVITAMIN TAB PO SCH (09:00)
[2023-02-01] MEDS: guaiFENesin 600 MG TABCR PO SCH (09:00)
[2023-02-01] MEDS ORDERED: buPROPion HCl 75 MG TABLET PO SCH (10:00)
--- NOTE | 2023-02-01 12:47 | Discharge Summary ---
Date of Service February 01, 2023 Admission HPI Per Admitting Provider This is a 62 yo M with PMhx of COPD, chronic hypoxia, tobacco use disorder, DM II, spinal stenosis, lumbago who presents to the hospital with acute shortenss of breath. His symptoms started on Thursday, where he progressively became more short of breath, cough with brown mucous production, fatigue, poor po intake. He has been intermittently nauseated, but denies any vomiting. Pt reports recently being around a friend last Thursday with similar respiratory symptoms who he actually told should go to the hospital. At home pt does have supplemental o2, he wears 4 L with exertional activities as needed, none at night. He did not use o2 in the past week. Pt has a nebulizer, Trelegy and albuterol rescue inhaler that - but hadn't tried the nebulizer at home for symptoms. Pt sleeps ok, he denies orthopnea. He reports only being able to walk a few steps before needing to stop and catch his breath. Pt smokes 1 ppd routinely and hasn't smoked at all in the past week due to his symptoms. Pt started smoking at age 12. He drinks occasional alcohol. Denies illicit drug use. Admission Exam Per Admitting Provider General: awake, alert, no apparent distress, appears much older than stated age Head: Normocephalic, atraumatic ENT: PERRL, EOMI Chest: + Barrel chested, on bipap, + inspiratory and faint expiratory wheezing, not tachypneic, o2 sats at 91% Cardiac: Regular rate and rhythm, no murmur, no JVD, normal peripheral pulses, good capillary refill Abdominal: NABS x 4 quadrants, soft, nondistended, nontender to palpation, no r ebound or guarding, + clubbing of fingernails Extremities: Normal inspection, no peripheral edema or erythema, calfs nontender to palpation Psych: Normal mood and affect Neuro: AAO x 3, strength intact bilaterally and rated 5/5, no motor deficits, speech is clear, no peripheral sensory deficits Principal Diagnosis (1) Acute respiratory failure with hypoxia: (2) Multifocal pneumonia: (3) COPD exacerbation: (4) Tobacco use disorder: Discharge Exam GENERAL: Alert and oriented x3. NAD, on 5 litre w/ rest and 10 L w/ activity. HEENT: No pallor, no icterus. Pupils equal, round and reactive to light. Oral mucosa moist. NECK: No JVD, no neck masses. HEART: S1 and S2 heard. Regular rate and rhythm. No murmur, no gallop. RESPIRATORY SYSTEM: Normal AP diameter. No accessory muscle use, b/l crackles - improving. +occasional rhonci has improved. b/l decreased breath sounds. ABDOMEN: Soft, bowel sounds present, nontender, no distention. CENTRAL NERVOUS SYSTEM: No facial droop. Speech is clear. Obeys simple commands. Moves extremities. EXTREMITIES: No edema, no erythema seen. Discharge Data Allergies Allergy/AdvReac Type Severity Reaction Status Date / Time Sulfa (Sulfonamide Allergy Unknown RASH Verified 01/23/23 15:14 Antibiotics) Consultations 01/23/23 14:07 ED Decision to Admit Stat 01/23/23 16:23 Consult Pulmonology Routine Ordered Studies 01/26/23 15:31 CT angio chest PE protocol Stat Hospital Course (1) Multifocal pneumonia: Plan 62-year-old male with PMH of COPD, chronic hypoxia, tobacco use disorder, DM2, spinal stenosis, tobacco presented to the hospital 01/23 with acute shortness of breath that started 4 days ago [employer], associated with cough with brown mucus production/fatigability/poor p.o. intake/intermittent nausea. He was managed for the following: (1) Acute respiratory failure with hypoxia: (2) Multifocal pneumonia: (3) COPD exacerbation: Patient presents with acute shortness of breath associated with cough with brown sputum, requires 4 L oxygen with exertional activities at home. Patient smokes 1 PPD routinely but has not smoked at all in the last week [employer] due to his symptoms. Patient started smoking at age 12. Admitting WBC WNL, but Pro-Luis and lactate elevated. Admitting CXR with multifocal airspace opacities. Flu/RSV/COVID swab negative at presentation. 01/26 CTA chest: no pe, has emphysematous changes, s/o multifocal pneumonia w/ bronchitis and mucous plugging. 01/27 ECHO: EF 55-60%, no intracardiac shunt appreciated with contrast, RV and LV normal in size and function bl Cx neg, continue with Mucinex/Tessalon Perles/prn DuoNebs/azithro MWF - f/u w/ ekg in 2 wks time, contact pcp office for ekg. Two-step test done, 5 L with rest and 10 L with activity. Oxygen set up being coordinated by CM. c/w incentive spirometer and flutter valve at home, patient is aware about this.. WBC elevation 2/2 steroid use, patient has been afebrile, continue with Solu- Medrol to tapering dose of prednisone on discharge. Continue with nicotine patch. Wellbutrin started. Has been smoking since age 12. currently smokes 2 PPD. Pulmonology on board, appreciate recommendation. Follow-up imaging in 4 weeks to document resolution. Outpatient PFT. (4) Tobacco use disorder: Counseled regarding smoking cessation. Continue with nicotine patch and Wellbutrin, pt has increasing interest in quitting smoking. DVT ppx: Lovenox subcu CODE: Full code Patient being discharged with following instruction at the point of discharge: Follow-up with your primary care physician within a week time and likely you will need labs CBC/CMP/magnesium/phosphorus. It is strongly recommended that you quit smoking. You have been started on Wellbutrin. You can continue to use nicotine patch. Continue with your Trelegy inhaler at home along with as needed DuoNebs nebulization and albuterol inhaler. Because of your advanced COPD, you will be started on azithromycin 250 mg Thursday. You will need repeat EKG done in 2 weeks time, coordinate with your PCP office. You are being discharged on oxygen with a goal of 5 L at rest and 10 L with activity. If you find yourself with worsening shortness of breath, contact emergency or 911 immediately. You will need to establish with pulmonology and follow-up with pulm as an outpatient. Coordinate with PCP office for referral to pulm. You will need pulmonary function test as an outpatient and repeat chest imaging in 4 weeks time to document resolution of your pneumonia. Please make sure that you are able to get your medications today by calling your pharmacy before you leave the hospital so that your treatment continuity is not broken. Home Health Attestation I certify that this patient is under my care and that I, or a physicians multimedia assistant working with me, had a face to-face encounter that meets the home health [id number] encounter requirements with this patient. The encounter with the patient was in whole, or in part, for the following medical condition, which is the primary reason for home health care (list medical condition): I certify that, based on my findings, the following services are medically necessary home health services: My clinical findings support the need for the above services because: Further, I certify that my clinical findings support that this patient is homebound (i.e. absences from home require considerable and taxing effort and are for medical reasons or [facility] or infrequently or of short duration when for other reasons) because: Certification for Home Health Services: Based on the above findings, I certify that this patient is confined to the home and needs intermittent long term care, physical therapy and/or speech therapy or continues to need occupational therapy. The patient is under my care, and I have initiated the establishment of the plan of care. This patient will be followed by a physician who will periodically review the plan of care. Total Time Total Time Spent Total Time Spent (In Minutes): 55 Discharge Plan Discharge Items Patient Disposition: Home - Home Health Services Reason For Visit: COPD EXACERBATION Discharge Diagnosis: (1) Acute respiratory failure with hypoxia: (2) Multifocal pneumonia: (3) COPD exacerbation: (4) Tobacco use disorder: Activity: Resume your previous activity Activity Comment: maintain activity as tolerated Non-emergency contact: Primary Care Provider Call non-emergency contact if: you have any medication questions, your symptoms worsen and your temperature is above 101 Follow-up/Referrals: Pamela Luu MD [Primary Care Provider] - Diet: Regular Diet Texture: Easy to Chew Addtl Attending Provider Instructions: Follow-up with your primary care physician within a week time and likely you will need labs CBC/CMP/magnesium/phosphorus. It is strongly recommended that you quit smoking. You have been started on Wellbutrin. You can continue to use nicotine patch. Continue with your Trelegy inhaler at home along with as needed DuoNebs nebulization and albuterol inhaler. Because of your advanced COPD, you will be started on azithromycin 250 mg Thursday. You will need repeat EKG done in 2 weeks time, coordinate with your PCP office. You are being discharged on oxygen with a goal of 5 L at rest and 10 L with activity. If you find yourself with worsening shortness of breath, contact emergency or 911 immediately. You will need to establish with pulmonology and follow-up with pulm as an outpatient. Coordinate with PCP office for referral to pulm. You will need pulmonary function test as an outpatient and repeat chest imaging in 4 weeks time to document resolution of your pneumonia. Please make sure that you are able to get your medications today by calling your pharmacy before you leave the hospital so that your treatment continuity is not broken. Pending Studies at Discharge: No Stand-Alone Forms: My [facility], Smoking Cessation Medications and DC Order Prescriptions: New bupropion HCl 75 mg Tablet 150 mg PO BID Qty: 120 0RF Saline Mist 0.65 % Aerosol,[place] 2 spray NA Q4H PRN (Reason: dry nasal passages) Qty: 45 0RF benzonatate 100 mg Capsule 100 mg PO TID 7 Days Qty: 21 0RF guaifenesin [Mucinex] 600 mg Tablet Extended Release 12hr 1,200 mg PO Q12 7 Days Qty: 28 0RF azithromycin 250 mg tablet 250 mg PO .mwf Qty: 18 0RF Rx Instructions: take 1 tablet mondays, wednesdays and fridays. prednisone 10 mg tablet 10 mg PO DIRECTED 9 Days Qty: 21 0RF Rx Instructions: 40 mg daily for 3 days, then 20 mg daily for 3 days then 10 mg daily for 3 days and stop. ipratropium-albuterol 0.5 mg-3 mg(2.5 mg base)/3 mL solution for nebulization 3 ml inhalation Q6H PRN (Reason: wheezing) Qty: 90 0RF Continued albuterol sulfate 90 mcg/actuation HFA aerosol inhaler 2 puff INHALATION Q4 PRN (Reason: Wheezing) multivitamin Tablet 1 tab PO DAILY nicotine 14 mg/24 hr patch 24 hour 1 patch transdermal DAILY Qty: 7 0RF Trelegy Ellipta 200-62.5-25 mcg blister with device 1 inh INHALATION QAM Discontinued fluticasone propion-salmeterol [Advair Diskus] 250-50 mcg/dose blister with device 1 inh INHALATION BID Discharge Orders: Discharge Order (Routine); Ordered 02/01/23 Ordered By: Haile Hicks Admission Data Admit Date/Time: 01/23/23 16:10 Attending Provider: Haile Hicks Admit Provider: Magdalena Stewart Primary Care Provider: Pamela Luu Other Providers: Magdalena Stewart ; Chaim Fox
== END 2023-02-01 15:34 | disposition home or self-care (01) | DRG 193 ==
LOC: ED 12:05 → 2N 16:10 → SUATTDRO 16:10 → 2N 17:35